=== PATIENT | female | born 1950 | race Caucasian/White ===

== ENCOUNTER 2023-03-13 13:26 | Emergency (ER) | payer MEDICARE, OTHER, SELFPAY ==
--- NOTE | ~2023-03-13 | XR_ITS ---
EXAMINATION: XR HUMERUS, LEFT CLINICAL INFORMATION: Fall COMPARISON: None available. TECHNIQUE: AP and lateral views of the left humerus. FINDINGS: No fracture or dislocation. There is arthritis at the shoulder joint. The elbow joint is unremarkable. Question soft tissue swelling mid arm. XR/XR humerus LT IMPRESSION: No fracture or dislocation. Arthritis at the left shoulder.
--- NOTE | ~2023-03-13 | CT_ITS ---
EXAMINATION: CT CERVICAL SPINE WITHOUT CONTRAST CLINICAL INFORMATION: Fall COMPARISON: None available. TECHNIQUE: CT cervical spine with coronal and sagittal reconstructions. This CT examination was performed using dose optimization techniques as appropriate, variously including the following: *Automated exposure control *Adjustment of mA and/or kV according to patient size (this includes techniques or standardized protocols for targeted exams where dose is matched to indication/reason for exam; i.e. extremities or head) *Use of iterative reconstruction technique DLP: 632 mGy-cm FINDINGS: No abnormal prevertebral soft tissue swelling is seen. Paraspinal muscle fat planes are maintained. No acute cervical spine fractures identified. There is disc space narrowing present C5-T2. Spurring of the joints of Luschka are seen to cause some anterior neural foraminal encroachment on the right at the C5-C6, C6-C7, and T1-T2 disc space levels and on the left at the C5-C6 and C6-C7 levels. Bilateral facet arthropathy is seen at multiple levels within the cervical spine. Visualized thyroid gland unremarkable. Carotid and left vertebral artery calcifications present. No apical lung lesion identified. Pterygoid plates intact. Temporomandibular joints unremarkable. CT/CT cervical spine wo IV con IMPRESSION: No acute cervical spine fracture. Cervical spondylosis as described. Fleischner guidelines were followed.
--- NOTE | ~2023-03-13 | CT_ITS ---
EXAMINATION: CT HEAD WITHOUT CONTRAST CLINICAL INFORMATION: Fall on blood thinners. COMPARISON: None available. TECHNIQUE: Contiguous axial imaging was performed from the skull base to vertex without intravenous administration of contrast. This CT examination was performed using dose optimization techniques as appropriate, variously including the following: *Automated exposure control *Adjustment of mA and/or kV according to patient size (this includes techniques or standardized protocols for targeted exams where dose is matched to indication/reason for exam; i.e. extremities or head) *Use of iterative reconstruction technique DLP: 632 mGy-cm FINDINGS: No intracranial hemorrhage identified. No abnormal extra-axial fluid collection is seen. No mass effect or midline structure shift. Reyes-white matter interface is maintained. Ventricles, sulci, and cisterns appear unremarkable. There is a left frontal scalp hematoma present. No underlying calvarial fracture is seen. Pterygoid plates intact. Temporomandibular joints in place. Visualized paranasal sinuses unremarkable. There are a few opacified mastoid air cells seen bilaterally. CT/CT head/brain wo IV con IMPRESSION: No acute intracranial pathology. Left frontal scalp hematoma.
--- NOTE | ~2023-03-13 | XR_ITS ---
EXAMINATION: XR HIP, LEFT CLINICAL INFORMATION: Fall. Tender to palpation. COMPARISON: None available. TECHNIQUE: Two views of the left hip and one view of the pelvis. FINDINGS: There is mild arthritis at the left hip joint with small osteophytes. No fracture or dislocation. Bones of the pelvis are normal. There are degenerative changes of the lower lumbar spine. There is atherosclerotic disease. XR/XR hip LT w PEL1V IMPRESSION: Mild left hip arthritis. No fracture or dislocation.
--- NOTE | ~2023-03-13 | CT_ITS ---
EXAMINATION: CT FACIAL BONES WITHOUT CONTRAST CLINICAL INFORMATION: Fall COMPARISON: None available. TECHNIQUE: CT facial bones with coronal and sagittal reconstructions This CT examination was performed using dose optimization techniques as appropriate, variously including the following: *Automated exposure control *Adjustment of mA and/or kV according to patient size (this includes techniques or standardized protocols for targeted exams where dose is matched to indication/reason for exam; i.e. 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 No acute facial bone fracture is appreciated. The paranasal sinuses are well aerated. There is opacification of a few mastoid air cells bilaterally. About the posterior aspect of the anterior maxilla adjacent to the incisors there is a well-defined low-density region measuring 6 mm in diameter with benign appearance and does not appear to be related to tooth extraction and may represent a benign cystic lesion not associated with tooth apex. No acute facial bone fracture is appreciated. No intraconal abnormality is seen. Maxillary spine intact. There is deviation of calcified nasal septum to the left anteriorly and to the right posteriorly. Ostiomeatal complexes patent. Pterygoid plates intact. Mild degenerative change of the temporal mandibular joints. CT/CT facial bones wo IV con IMPRESSION: No acute facial bone fracture. Well-defined 6 mm cystic region within the maxilla with benign appearance.
[2023-03-13 13:47] VITALS: BP 100/40; BP 104/37; PULSE 60; PULSE 82; RESP 16; TEMP 36.7; O2SAT 94; O2SAT 98; BMI 38.2
--- NOTE | 2023-03-13 14:04 | ED_ITS ---
HPI - General Adult General Chief complaint: Fall Stated complaint: FALL T-1,+THINNERS,-LOC Source: patient, EMS and RN notes reviewed Mode of arrival: EMS Limitations: no limitations History of Present Illness HPI narrative: Patient is a 72-year-old female with history of CHF, COPD, type 2 DM, on Eliquis for afib, known wound to left heel, known pressure ulcers to coccyx, recently admitted to short-term rehab for pulmonary hypertension presenting to the emergency department after a fall last night. Patient states that she needed to use the restroom and ring her call bowel several times but was not answered so she attempted to get to the bathroom herself in her wheelchair. She states that she wheeled her wheelchair up to the door way but was unable to get her wheelchair over the transitions strip in the doorway and attempted to grab onto the sink. She states that when she grabbed the sink it was wet and this caused her to fall to the floor. She reports that she had her head on the floor but denies any loss of consciousness. The fall was unwitnessed. She now complains of left upper arm and left hip pain. She has visible ecchymosis to the left forehead. Onset (ago): hour(s) Location: head Related Data Allergies Allergy/AdvReac Type Severity Reaction Status Date / Time lisinopril Allergy cough Uncoded 03/13/23 13:57 tramadol AdvReac Mild vomiting Uncoded 03/13/23 13:57 Review of Systems Review of Systems: As per HPI Yes all other systems are reviewed and are negative Constitutional: Constitutional: Reports as per HPI [facility] [place] Social History Social History Smoked in Last 30 Days: No Use of substances other than those prescribed or required for medical reasons: No Advance Directives: No Physical Exam ED Vital Signs: Vital Signs - 24 hr 03/13/23 13:47 03/13/23 14:11 03/13/23 15:17 Temperature 98.1 F 98.1 F 97.7 F Pulse Rate 60 60 57 Respiratory Rate 16 14 15 Blood Pressure 104/37 L 108/40 L 91/41 L Pulse Oximetry 94 94 Oxygen Delivery Method Room Air Room Air 03/13/23 15:24 03/13/23 16:11 Temperature 97.9 F Pulse Rate 60 Respiratory Rate 16 Blood Pressure 111/32 L 95/35 L Pulse Oximetry 95 95 Oxygen Delivery Method Room Air Room Air BMI result Body Mass Index 38.2 Const General: cooperative, healthy appearing and no acute distress Orientation/consciousness: oriented to person, oriented to place, oriented to time and patient oriented x3 Limitations: no limitations HENDE Head: Yes normocephalic, No Creda's sign, Yes contusion, Yes hematoma, No palpable skull fracture, No raccoon eyes, Yes scalp tenderness, No periorbital ecchymosis and Yes other (ecchymosis to left forehead) Head images: 1. ecchymosis Ears: external ears normal and TM's normal bilaterally General nose exam: Normal external nose present Face and sinus: Yes face symmetric Mouth: oropharynx normal and moist mucous membranes Throat: Yes uvula midline Eyes Pupils: Equal, round and reactive pupils present Neck Neck: Yes normal visual inspection and Yes supple Chest Chest palpation & inspection: normal inspection of the chest, normal palpation of entire chest wall, no crepitus and no tenderness Resp Effort & Inspection: normal respiratory effort and able to speak in complete sentences Auscultation: clear to auscultation bilaterally Cardio Rate: regular rate Rhythm: regular rhythm Heart sounds: S1 normal heart sound present and S2 normal heart sound present GI Palpation (GI): Soft to palpation and nontender Auscultation: normoactive bowel sounds General: Yes no CVA tenderness Back/Spine/Pelvis Back: no CVA tenderness Skin General skin exam: elasticity normal and turgor normal Neuro General: oriented to person, oriented to place, oriented to time, patient oriented x3, moves all extremities, no focal motor deficits and CN's II-XI intact bilaterally Cranial nerves: Yes Equal, round and reactive pupils present Cognition (Neuro): normal cognition Extrem General: Yes full ROM, Yes no pedal edema and Yes no calf tenderness Left upper extremity: shoulder/upper arm Details: tenderness Location: other (midshaft humerus), normal ROM and ecchymosis upper arm Details: multiple; no swelling, no crepitus and no deformity Left lower extremity: full ROM, hip/thigh Details: tenderness Location: of the hip Location: laterally and ecchymosis hip lateral and foot Details: vascular status not assessed and other (dressing in place, patient reports wound to heel) Psych Mental Status: mental status grossly normal Affect: normal affect Thought process: Normal thought process present Course Course Course Narrative: 15:01 FINDINGS: There is mild arthritis at the left hip joint with small osteophytes. No fracture or dislocation. Bones of the pelvis are normal. There are degenerative changes of the lower lumbar spine. There is atherosclerotic disease. XR/XR hip LT w PEL1V IMPRESSION: Mild left hip arthritis. No fracture or dislocation. FINDINGS: No fracture or dislocation. There is arthritis at the shoulder joint. The elbow joint is unremarkable. Question soft tissue swelling mid arm. ? XR/XR humerus LT IMPRESSION: No fracture or dislocation. Arthritis at the left shoulder. Awaiting results of CT scans. 15:50 FINDINGS: No intracranial hemorrhage identified. No abnormal extra-axial fluid collection is seen. No mass effect or midline structure shift. Reyes-white matter interface is maintained. Ventricles, sulci, and cisterns appear unremarkable. There is a left frontal scalp hematoma present. No underlying calvarial fracture is seen. Pterygoid plates intact. Temporomandibular joints in place. Visualized paranasal sinuses unremarkable. There are a few opacified mastoid air cells seen bilaterally. ? CT/CT head/brain wo IV con IMPRESSION: No acute intracranial pathology. ? Left frontal scalp hematoma. FINDINGS: No abnormal prevertebral soft tissue swelling is seen. Paraspinal muscle fat planes are maintained. No acute cervical spine fractures identified. There is disc space narrowing present C5-T2. Spurring of the joints of Luschka are seen to cause some anterior neural foraminal encroachment on the right at the C5-C6, C6-C7, and T1-T2 disc space levels and on the left at the C5-C6 and C6-C7 levels. Bilateral facet arthropathy is seen at multiple levels within the cervical spine. Visualized thyroid gland unremarkable. Carotid and left vertebral artery calcifications present. No apical lung lesion identified. Pterygoid plates intact. Temporomandibular joints unremarkable. CT/CT cervical spine wo IV con IMPRESSION: No acute cervical spine fracture. ? Cervical spondylosis as described.? ? Fleischner guidelines were followed. 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 No acute facial bone fracture is appreciated. The paranasal sinuses are well aerated. There is opacification of a few mastoid air cells bilaterally. About the posterior aspect of the anterior maxilla adjacent to the incisors there is a well-defined low-density region measuring 6 mm in diameter with benign appearance and does not appear to be related to tooth extraction and may represent a benign cystic lesion not associated with tooth apex. No acute facial bone fracture is appreciated. No intraconal abnormality is seen. Maxillary spine intact. There is deviation of calcified nasal septum to the left anteriorly and to the right posteriorly. Ostiomeatal complexes patent. Pterygoid plates intact. Mild degenerative change of the temporal mandibular joints. CT/CT facial bones wo IV con IMPRESSION: No acute facial bone fracture. ? Well-defined 6 mm cystic region within the maxilla with benign appearance. Reevaluation(s) Reevaluation #1: No evidence of acute fractures or ICH on x-rays or CT scans. Feel patient is stable for discharge back to short-term rehab. Patient updated on all results, all questions answered and patient is agreeable with plan of care. Time: 16:45 Medical Decision Making Medical Decision Making MDM Narrative: Patient is a 72-year-old female with history of CHF, COPD, type 2 DM, on Eliquis for afib, known wound to left heel, known pressure ulcers to coccyx, recently admitted to short-term rehab for pulmonary hypertension presenting to the emerg ency department after a fall last night with ecchymosis to left forehead, left upper arm pain, and left hip pain. On exam patient is awake, A+Ox3, in no acute distress, normal neuro exam without focal deficit, ecchymosis to left forehead, no palpable fracture, no Cerda sign, no raccoon eyes, multiple areas of ecchymosis to left upper arm in various stages of healing, left hip ecchymosis and TTP, abdomen soft and nontender, chest nontender. Concern for ICH, skull fracture, cervical spinal fracture, facial bone fracture, left humerus fracture, left hip fracture. Plan: CT head/neck/facial bones, x-ray left humerus, hip and pelvis, reassess Please refer to course for remaining clinical decision making. Differential Diagnosis Differential Diagnoses: The differential diagnosis associated with the presentation includes As above Independent Interpretation I performed an independent interpretation of an: Plain X-Ray and CT Scan Interpretation: I independently reviewed the x-rays and CT scans and agree with the radio logist's interpretation. Radiology Impression Discussion of test interpretation with radiology: I have reviewed the radiologist's reading. Radiologist Impression: FINDINGS: There is mild arthritis at the left hip joint with small osteophytes. No fracture or dislocation. Bones of the pelvis are normal. There are degenerative changes of the lower lumbar spine. There is atherosclerotic disease. XR/XR hip LT w PEL1V IMPRESSION: Mild left hip arthritis. No fracture or dislocation. FINDINGS: No fracture or dislocation. There is arthritis at the shoulder joint. The elbow joint is unremarkable. Question soft tissue swelling mid arm. ? XR/XR humerus LT IMPRESSION: No fracture or dislocation. Arthritis at the left shoulder. Awaiting results of CT scans. 15:50 FINDINGS: No intracranial hemorrhage identified. No abnormal extra-axial fluid collection is seen. No mass effect or midline structure shift. Reyes-white matter interface is maintained. Ventricles, sulci, and cisterns appear unremarkable. There is a left frontal scalp hematoma present. No underlying calvarial fracture is seen. Pterygoid plates intact. Temporomandibular joints in place. Visualized paranasal sinuses unremarkable. There are a few opacified mastoid air cells seen bilaterally. ? CT/CT head/brain wo IV con IMPRESSION: No acute intracranial pathology. ? Left frontal scalp hematoma. FINDINGS: No abnormal prevertebral soft tissue swelling is seen. Paraspinal muscle fat planes are maintained. No acute cervical spine fractures identified. There is disc space narrowing present C5-T2. Spurring of the joints of Luschka are seen to cause some anterior neural foraminal encroachment on the right at the C5-C6, C6-C7, and T1-T2 disc space levels and on the left at the C5-C6 and C6-C7 levels. Bilateral facet arthropathy is seen at multiple levels within the cervical spine. Visualized thyroid gland unremarkable. Carotid and left vertebral artery calcifications present. No apical lung lesion identified. Pterygoid plates intact. Temporomandibular joints unremarkable. CT/CT cervical spine wo IV con IMPRESSION: No acute cervical spine fracture. ? Cervical spondylosis as described.? ? Fleischner guidelines were followed. Independent Historian Clinical information obtained from an independent historian. History obtained from or confirmed by: EMS External Record Review External record reviewed: Inpatient record, Office record and Outpatient record Chronic Conditions Patient?s care impacted by: Other (CHF, COPD, on anticoagulation) Discharge Plan Discharge Clinical Impression: Hematoma of frontal scalp, Fall, Contusion of hip, left Patient Disposition: Home, Self-Care Instructions: Fall Prevention for Older Adults (ED), Contusion in Adults (ED), Scalp Contusion in Adults (ED), Fall Prevention (ED), Hip Contusion (ED) Additional Instructions: You have been evaluated in the emergency department today for head injury after a fall. Your CT scan did not show signs of a bleed or fractures in your head. We recommend you take Tylenol 650 mg every 6 hours as needed for pain. Please schedule an appointment with for follow-up with your primary care provider as soon as possible. Return to the emergency department if you experience worsening or uncontrolled pain, vision changes, recurrent vomiting, difficulty with normal activities, abnormal behavior, difficulty walking, numbness, weakness, or any other concerning symptoms.
[2023-03-13 14:11] VITALS: BP 108/40; PULSE 60; RESP 14; TEMP 36.7; O2SAT 94
[2023-03-13 15:17] VITALS: BP 91/41; PULSE 57; RESP 15; TEMP 36.5
[2023-03-13 15:24] VITALS: BP 111/32; O2SAT 95
[2023-03-13 16:11] VITALS: BP 95/35; PULSE 60; RESP 16; TEMP 36.6; O2SAT 95
== END 2023-03-13 18:19 | disposition home or self-care (01) ==
PROVIDERS: Emergency Provider Student in an Organized Health Care Education/Training Program
DX: S00.03XA Contusion of scalp, initial encounter (principal); S70.02XA Contusion of left hip, initial encounter; R51.9 Headache, unspecified; M54.2 Cervicalgia; M25.552 Pain in left hip; W01.0XXA Fall on same level from slipping, tripping and stumbling without subsequent striking against object, initial encounter; Y93.9 Activity, unspecified; Y92.9 Unspecified place or not applicable; Y99.9 Unspecified external cause status; Z79.899 Other long term (current) drug therapy
CPT/HCPCS: 70450; 70486; 72125; 73060; 73502; 99284

== ENCOUNTER 2023-06-27 20:15 | Inpatient (IN) | payer MEDICARE, OTHER, SELFPAY ==
[2023-06-27] VITALS (7 sets, daily range): BP systolic 90–141; BP diastolic 37–60; PULSE 60–65; RESP 9–17; TEMP 36.3–36.7; O2SAT 95–99; BMI 33.9
--- NOTE | ~2023-06-27 | CT_ITS ---
EXAMINATION: CT ABDOMEN AND PELVIS WITHOUT CONTRAST CLINICAL INFORMATION: Elevated LFTs COMPARISON: None available. TECHNIQUE: Multidetector volumetric imaging was performed from the superior aspect of the liver through the pubic symphysis. Sagittal and coronal reformatted images were obtained on the technologist's workstation. This CT examination was performed using dose optimization techniques as appropriate, variously including the following: *Automated exposure control *Adjustment of mA and/or kV according to patient size (this includes techniques or standardized protocols for targeted exams where dose is matched to indication/reason for exam; i.e. extremities or head) *Use of iterative reconstruction technique DLP: 1055 mGy-cm FINDINGS: LUNG BASES: Emphysematous changes. Bibasilar atelectasis versus scarring. Heart is mildly enlarged. Coronary artery calcifications are noted. No pneumothorax. No large pleural effusion. LIVER, GALLBLADDER, AND BILIARY TREE: Liver demonstrates a cirrhotic morphology. No focal hepatic lesion or biliary ductal dilatation is present. The gallbladder is surgically absent. PANCREAS: Fatty infiltration and atrophy of the pancreas. SPLEEN: Unremarkable. ADRENAL GLANDS: Unremarkable. KIDNEYS AND URETERS: Subcentimeter hypodense focus along the anterior aspect of the left renal interpolar region to small to characterize though statistically representing a simple cyst not requiring follow-up. The kidneys are normal in size, shape, and attenuation. No hydronephrosis, hydroureter, or calculi seen. No perinephric stranding. BLADDER: Unremarkable. GASTROINTESTINAL TRACT: Colonic diverticulosis without acute diverticulitis. The small and large bowel are unremarkable. The appendix is unremarkable. ABDOMINAL WALL: No significant hernia is appreciated. LYMPH NODES: No enlarged lymph nodes per size criteria. VASCULAR: Splenic varices. Abdominal aorta is nonaneurysmal. Atherosclerotic calcifications of the abdominal aorta and its branches. PELVIC VISCERA: Anteverted uterus. Calcifications of the uterine body possibly representing calcified uterine fibroids. OSSEOUS STRUCTURES: Osteopenia. Multilevel degenerative changes of the thoracolumbar and lumbosacral spine. CT/CT abdomen pelvis wo IV con IMPRESSION: 1. No acute process of the abdomen or pelvis identified. 2. Liver demonstrates a cirrhotic morphology. Splenic varices suggesting portal hypertension. 3. Status post cholecystectomy. 4. Subcentimeter hypodense focus along the anterior aspect of the left renal interpolar region to small to characterize though statistically representing a simple cyst, not requiring follow-up. 5. Colonic diverticulosis without acute diverticulitis. 6. Osteopenia.
--- NOTE | 2023-06-27 20:24 | ECG_ITS ---
Test Reason : AMS Blood Pressure : / mmHG Vent. Rate : 061 BPM Atrial Rate : 061 BPM P-R Int : 210 ms QRS Dur : 108 ms QT Int : 506 ms P-R-T Axes : 080 -06 115 degrees QTc Int : 509 ms Sinus rhythm with 1st degree A-V block ST & T wave abnormality, consider anterior ischemia Prolonged QT Abnormal ECG No previous ECGs available Referred By: Lorene Velazquez Electronically Signed By:THEO GUSMAN
[2023-06-27 20:46] LABS: MANUAL DIFF FLAG NO
[2023-06-27 20:47] LABS: Basophils Percent Auto 0.3 % (0-2); Eosinophils Absolute Auto 0.1 X10*3/uL (0.0-0.4); Eosinophils Percent Auto 0.5 % (0-4); Hemoglobin 10.1 g/dl (12.0-16.0); Imm Gran Abs Auto 0.05 X10*3/uL (0.00-0.03); Imm Gran Pct Auto 0.5 % (0.0-0.4); Lymphocytes Percent Auto 10.7 % (20-40); Mean Corpuscular HGB Conc 32.6 g/dl (31.0-35.0); Mean Corpuscular Hemoglobin 28.8 pg (27.0-33.0); Mean Corpuscular Volume 88.3 fL (80.0-98.0); Mean Platelet Volume 11.5 fL (9.4-12.3); Monocytes Absolute Auto 0.9 X10*3/uL (0.1-1.2); Monocytes Percent Auto 9.3 % (2-11); Neutrophils Absolute Auto 7.5 x10*3/uL (2.0-8.3); Neutrophils Percent Auto 78.7 % (45-73); Platelet Count 219 X10*3/uL (160-400); Red Blood Count 3.51 X10*6/uL (4.20-5.50); Red Cell Distribution Width 18.7 % (11.0-16.0); White Blood Count 9.5 X10*3/uL (4.8-10.8)
[2023-06-27 20:52] LABS: Prothrombin Time 24.2 SEC (11.1-13.3)
[2023-06-27] MEDS: ondansetron HCL 4 MG/2 ML VIAL IVPUSH (21:06)
[2023-06-27 21:11] LABS: Appearance Urine Hazy; Color Urine Yellow; Glucose Urine UA Negative (Negative); Leukocyte Esterase Urine Large (3+) (Negative); Nitrite Urine Negative (Negative); PH 7.5 (5.0-9.0); UMIC TRIGGER UACC YES; Urine Blood Small (1+) (Negative); Urine Ketones Negative (Negative); Urine Protein Negative (Neg-Trace)
[2023-06-27 21:18] LABS: Calcium Oxalate Crystals Urine Present; Hyaline Casts Urine >20 /LPF (0-2); UACC Culture Trigger YES; WBC Urine >50 /HPF (0-5)
[2023-06-27 21:18] LABS: Lactic Acid 1.5 mmol/L (0.5-2.0)
[2023-06-27 21:19] LABS: Bacteria Urine 2+ (None Seen)
[2023-06-27 21:23] LABS: Alanine Aminotransferase 26 U/L (0-31); Albumin Level 2.6 g/dL (3.5-5.0); Alkaline Phosphatase 219 U/L (39-117); Anion Gap 19 (12-20); Aspartate Amino Transferase 113 U/L (5-31); Bilirubin Total 3.4 mg/dL (0.0-1.0); Blood Urea Nitrogen 46 mg/dL (9-16); Carbon Dioxide 23 mmol/L (22-29); Chloride 92 mmol/L (96-108); Creatinine Clr Calc Pharmacy 21.3; Estimated Glomerular Filt Rate 19; Glucose Random 199 mg/dL (60-115); Potassium 4.8 mmol/L (3.3-5.1); Sodium 129 mmol/L (135-145); Total Protein 6.5 g/dL (6.5-8.0)
--- NOTE | 2023-06-27 21:28 | PC.NURSE ---
Pt comes from [facility], has been consistetly worse over the last few days per family. pt is getting lactulose for elevated ammonia levels. Pt is DNR/DNI and has a signed molst form. Blood pressure has been consistently low MD aware, no new orders. Pt placed in trendelenburg at this time This RN placed 20g IV in RAC
--- NOTE | 2023-06-27 21:31 | PC.NURSE ---
pt has skin small skin tear on R heel, this RN placed non-stick dressing over wound. Pt also has various small (less then dime sized) wound along bilateral arms and chest. No active bleeding present. Pillow placed under legs to keep heels off bed
[2023-06-27 21:33] LABS: Troponin-I High Sensitivity 29.6 ng/L (<3.5-17.0)
--- NOTE | 2023-06-27 21:46 | PHA.MEDREC ---
Pharmacy Consult ? Medication Reconciliation Pharmacy has completed the medication reconciliation. Patient came from [facility] with medication list. Renetta Olivo, ShanonD
--- NOTE | 2023-06-27 21:46 | PC.NURSE ---
Second 20g IV placed in RAC by CARY Sweeney
--- NOTE | 2023-06-27 21:54 | ED.GENADULT ---
HPI - General Adult General Chief complaint: Altered Mental Status Stated complaint: AMS VOMITING NAUSEA Time Seen by Provider: 06/27/23 20:59 Source: patient and EMS Mode of arrival: EMS Limitations: altered mental status History of Present Illness HPI narrative: Patient comes to the emergency room via ambulance from [facility]. Patient has altered mental status, patient's family is at bedside. They report that the patient has been having decreased p.o. intake for 3-4 days, vomiting after eating, no diarrhea. Also, the family reports that patient was recently seen at [facility], diagnosed with some liver issue which is causing her ammonia to increase. The family does not know exactly what the patient is being worked up for, they report that the patient has an MRI pending 2 weeks from now. Patient states that overall she does not feel well, no specific complaints. The family reports that if notice at the facility that patient's ammonia has been elevated for about a week, currently taking lactulose and having soft bowel movements without diarrhea. Also, patient did complain a few days about possible dysuria, a urinalysis was obtained but they do not have the results yet. Patient denies any fever or chills, no flank pain Related Data Home Medications Medication Instructions Recorded Confirmed albuterol sulfate 90 mcg/actuation 2 puff inhalation Q6H PRN wheezing 06/27/23 06/27/23 aerosol inhaler amiodarone 400 mg tablet 400 mg PO DAILY 06/27/23 06/27/23 apixaban 5 mg tablet 5 mg PO BID 06/27/23 06/27/23 cyanocobalamin (vitamin B-12) 1,000 mcg IM Q30D 06/27/23 06/27/23 1,000 mcg/mL injection kit fluticasone fur. 200 mcg-umeclid 1 inh inhalation DAILY 06/27/23 06/27/23 62.5 mcg-vilant 25 mcg inhalat.powder (Trelegy Ellipta) gabapentin 100 mg capsule 100 mg PO TID 06/27/23 06/27/23 insulin glargine 100 unit/mL 32 unit subcut BEDTIME 06/27/23 06/27/23 subcutaneous solution lactulose 10 gram/15 mL oral 45 ml PO BID 06/27/23 06/27/23 solution methyl salicylate 15 %-menthol 10 1 appl topical BID 06/27/23 06/27/23 % topical cream (Muscle Rub) midodrine 10 mg tablet 5 mg PO BID 06/27/23 06/27/23 omeprazole 20 mg capsule,delayed 20 mg PO BID 06/27/23 06/27/23 release ondansetron HCl 4 mg tablet 8 mg PO TID 06/27/23 06/27/23 oxycodone-acetaminophen 5 mg-325 1 tab PO Q8H PRN Pain 06/27/23 06/27/23 mg tablet (Percocet) polyethylene glycol 3350 17 gram 17 g PO DAILY 06/27/23 06/27/23 oral powder packet (Miralax) potassium chloride 20 mEq 20 meq PO DAILY 06/27/23 06/27/23 tablet,extended release sertraline 50 mg tablet 100 mg PO DAILY 06/27/23 06/27/23 spironolactone 100 mg tablet 100 mg PO BEDTIME 06/27/23 06/27/23 torsemide 100 mg tablet 100 mg PO DAILY 06/27/23 06/27/23 Allergies Allergy/AdvReac Type Severity Reaction Status Date / Time lisinopril Allergy cough Uncoded 03/13/23 13:57 tramadol AdvReac Mild vomiting Uncoded 03/13/23 13:57 Review of Systems Review of Systems: Constitutional : Denies fever ENT/Mouth : No Hearing loss, No Ear Pain, No Nasal Congestion, No Sinus Pain, No Hoarseness, No sore throat, No Rhinorrhea, No Swallowing Difficulty Eyes: No Eye Pain, No Swelling, No Redness, No Foreign Body, No Discharge, No Vision Changes Cardiovascular : No Chest Pain, No SOB, No Dyspnea on Exertion, No Orthopnea, No Edema, No Palpitations Respiratory : No Cough, No Sputum, No Wheezing, No Smoke Exposure, No Dyspnea Gastrointestinal : Complaining of vomiting and soft loose stools secondary to using lactulose Genitourinary : Complaining of mild Dysuria, No Urinary Frequency, No Hematuria, No Urinary Incontinence, No Urgency, No Flank Pain, No Urinary Flow Changes, No Hesitancy Musculoskeletal : No joint pain, No Myalgias, No Joint Swelling Skin : No Skin Lesions, No rash Neuro : No Weakness, No Numbness, No Paresthesias, No Loss of Consciousness, No Dizziness, No Headache Psych : No Anxiety/Panic, No Depression, No SI/HI/AH/VH, No Social Issues, Heme/Lymph: No Bruising, No Bleeding,No Lymphadenopathy Endocrine : No Polyuria, No Polydipsia, No Temperature Intolerance [facility] Past Medical History Medical History Atrial fibrillation CHF (congestive heart failure) COPD (chronic obstructive pulmonary disease) Hypertension Pulmonary hypertension Type 2 diabetes mellitus Social History Social History Alcohol intake: never Patient Tobacco Use Status: Never used Tobacco Smoked in Last 30 Days: No Use of substances other than those prescribed or required for medical reasons: No Advance Directives: Yes Advance Directives Information Provided: No Advance Directives on File: No Nutrition Risks: Poor intake 0-25% >4 days Physical Exam ED Vital Signs: Vital Signs - 24 hr 06/27/23 20:19 06/27/23 20:31 06/27/23 21:05 Temperature 97.9 F 97.4 F Pulse Rate 61 62 60 Respiratory Rate 9 L 17 10 L Blood Pressure 141/37 H 141/37 H 124/45 L Pulse Oximetry 99 99 98 Oxygen Delivery Method Room Air Room Air Room Air 06/27/23 21:08 06/27/23 21:38 06/27/23 22:04 Temperature Pulse Rate 60 61 60 Respiratory Rate 10 L 10 L 11 L Blood Pressure 141/52 H 141/42 H 135/58 L Pulse Oximetry 99 99 98 Oxygen Delivery Method Room Air Room Air Room Air 06/27/23 23:17 Temperature 98.0 F Pulse Rate 65 Respiratory Rate 12 Blood Pressure 133/48 L Pulse Oximetry 98 Oxygen Delivery Method Room Air BMI result Body Mass Index 33.9 Const Other: Appearance: Alert. Oriented X2. No acute distress. Does look uncomfortable Eyes: Pupils equal, round and reactive to light. ENT: Pharynx normal. Neck: Normal inspection. Neck supple. No lymph nodes noted. No crepitus CVS: Normal heart rate and rhythm. Pulses normal. Normal S1 and S2 Respiratory: No respiratory distress. Breath sounds normal. No Wheezing. No rales Abdomen: Soft and nontender. No rigidity. No distention. Skin: Skin warm and dry. Normal skin color. Normal skin turgor. Extremities: +1 trace pitting edema bilaterally No Lacerations. No Rash Neuro: Moving all extremities. No slurred speech. CN 2 through 12 grossly intact Psych: calm, cooperative Course Course Course Narrative: -patient's labs pending -with family sent patient's permission, we have requested records from [facility], pending Medications Administered Generic Name Dose Route Start Last Admin Trade Name Freq PRN Reason Stop Dose Admin Sodium Chloride 500 mls @ 500 mls/hr 06/27/23 22:45 06/27/23 22:50 Ns IV 06/27/23 23:44 500 mls/hr .Q1H ONE Administration Insulin Glargine 15 unit 06/27/23 22:50 06/27/23 23:09 Insulin Glargine,Hum.Rec.Anlog 100 Unit/Ml 10 Ml Vial SUBCUT 15 unit BEDTIME RHODA Administration Insulin Human Lispro 0 unit 06/27/23 23:00 06/27/23 23:08 Insulin Lispro 100 Unit/Ml 3 Ml Vial SUBCUT 2 unit Q6H RHODA Administration Protocol Sodium Chloride 3 ml 06/28/23 00:00 06/27/23 23:37 0.9 % Sodium Chloride Flush 3 Ml Syringe IVFLUSH Not Given QSHIFT RHOAD Discontinued Medications Generic Name Dose Route Start Last Admin Trade Name Freq PRN Reason Stop Dose Admin Ceftriaxone Sodium 1 gm/ 50 mls @ 100 mls/hr 06/27/23 22:16 06/27/23 23:19 Sodium Chloride IV 06/27/23 22:45 Infused ONCE ONE Infusion Lactulose 200 gm 06/27/23 22:36 06/27/23 23:08 Lactulose 320 Gm/480 Ml Solution HI 06/27/23 22:37 200 gm ONCE ONE Administration Morphine Sulfate 2 mg 06/27/23 22:48 06/27/23 23:09 Morphine Sulfate 2 Mg/Ml Cartridge IVPUSH 06/27/23 22:49 2 mg ONCE ONE Administration Protocol Ondansetron HCl 4 mg 06/27/23 20:24 06/27/23 21:06 Ondansetron Hcl 4 Mg/2 Ml Vial IVPUSH 06/27/23 20:25 4 mg ONCE ONE Administration Medical Decision Making Medical Decision Making MDM Narrative: -my interpretation of labs: Hemoglobin 10.1, hematocrit 31, we do not have any previous labs for comparison. INR 2.0, patient is not on Coumadin, only Eliquis. Patient's sodium 129, creatinine 2.47, we not have any previous labs for comparison. Patient has a UTI, covered with antibiotics, sepsis not suspected. -I discussed the patient with Dr. Jonhson, patient being admitted -we will go ahead and order a CT scan of the abdomen given her history, unclear why patient has elevated ammonia. Given p.r. ammonia here in the ED. Differential Diagnosis Differential Diagnoses: The differential diagnosis associated with the presentation includes (Encephalopathy due to high ammonia, UTI, deconditioning, dementia, hyponatremia) Admission/Observation Consideration of admission/observation: Escalation of care including admission/observation considered Consult Healthcare Provider Management of the patient was discussed with: Hospitalist Lab Data MDM Lab Attestation statement: I reviewed the patient's lab results. 06/27/23 20:41 06/27/23 20:40 Labs: Lab Results 06/27/23 06/27/23 06/27/23 Range/Units 20:40 20:40 20:41 WBC 9.5 (4.8-10.8) X10*3/uL RBC 3.51 L (4.20-5.50) X10*6/uL Hgb 10.1 L (12.0-16.0) g/dl Hct 31.0 L (37.0-47.0) % MCV 88.3 (80.0-98.0) fL MCH 28.8 (27.0-33.0) pg MCHC 32.6 (31.0-35.0) g/dl RDW 18.7 H (11.0-16.0) % Plt Count 219 (160-400) X10*3/uL MPV 11.5 (9.4-12.3) fL Immature Gran % (Auto) 0.5 H (0.0-0.4) % Neut % (Auto) 78.7 H (45-73) % Lymph % (Auto) 10.7 L (20-40) % Ballard % (Auto) 9.3 (2-11) % Eos % (Auto) 0.5 (0-4) % Baso % (Auto) 0.3 (0-2) % Lymph # (Auto) 1.0 L (1.2-4.9) X10*3/uL Ballard # (Auto) 0.9 (0.1-1.2) X10*3/uL Eos # (Auto) 0.1 (0.0-0.4) X10*3/uL Baso # (Auto) 0.0 (0.0-0.2) X10*3/uL Abs Immat Gran (auto) 0.05 H (0.00-0.03) X10*3/uL Absolute Neuts (auto) 7.5 (2.0-8.3) x10*3/uL Absolute Nucleated RBC 0.000 (0.0-0.012) X10*3/uL Nucleated RBC % (auto) 0.0 (0.0-0.2) /100WBC PT (11.1-13.3) SEC INR (0.9-1.1) Sodium 129 L (135-145) mmol/L Potassium 4.8 (3.3-5.1) mmol/L Chloride 92 L (96-108) mmol/L Carbon Dioxide 23 (22-29) mmol/L Anion Gap 19 (12-20) BUN 46 H (9-16) mg/dL Creatinine 2.47 H (0.5-1.4) mg/dL Estim Creat Clear Calc 21.3 Estimated GFR 19 POC Glucose (60-115) mg/dL Random Glucose 199 H (60-115) mg/dL Lactic Acid 1.5 (0.5-2.0) mmol/L Calcium 9.0 (8.4-10.2) mg/dL Total Bilirubin 3.4 H (0.0-1.0) mg/dL AST 113 H (5-31) U/L ALT 26 (0-31) U/L Alkaline Phosphatase 219 H (39-117) U/L Ammonia (13-55) umol/L Troponin I High Sens (<3.5-17.0) ng/L Total Protein 6.5 (6.5-8.0) g/dL Albumin 2.6 L (3.5-5.0) g/dL Urine Color Urine Appearance Urine pH (5.0-9.0) Ur Specific [place] (1.005-1.025) Urine Protein (Neg-Trace) mg/dL Urine Glucose (UA) (Negative) mg/dL Urine Ketones (Negative) mg/dL Urine Blood (Negative) Urine Nitrite (Negative) Ur Leukocyte Esterase (Negative) Urine RBC (0-2) /HPF Urine WBC (0-5) /HPF Ur Squamous Epith Cells (0-2) /HPF Calcium Oxalate Crystal Urine Bacteria (None Seen) Hyaline Casts (0-2) /LPF 06/27/23 06/27/23 06/27/23 Range/Units 20:41 20:41 20:41 WBC (4.8-10.8) X10*3/uL RBC (4.20-5.50) X10*6/uL Hgb (12.0-16.0) g/dl Hct (37.0-47.0) % MCV (80.0-98.0) fL MCH (27.0-33.0) pg MCHC (31.0-35.0) g/dl RDW (11.0-16.0) % Plt Count (160-400) X10*3/uL MPV (9.4-12.3) fL Immature Gran % (Auto) (0.0-0.4) % Neut % (Auto) (45-73) % Lymph % (Auto) (20-40) % Ballard % (Auto) (2-11) % Eos % (Auto) (0-4) % Baso % (Auto) (0-2) % Lymph # (Auto) (1.2-4.9) X10*3/uL Ballard # (Auto) (0.1-1.2) X10*3/uL Eos # (Auto) (0.0-0.4) X10*3/uL Baso # (Auto) (0.0-0.2) X10*3/uL Abs Immat Gran (auto) (0.00-0.03) X10*3/uL Absolute Neuts (auto) (2.0-8.3) x10*3/uL Absolute Nucleated RBC (0.0-0.012) X10*3/uL Nucleated RBC % (auto) (0.0-0.2) /100WBC PT 24.2 H (11.1-13.3) SEC INR 2.0 H (0.9-1.1) Sodium (135-145) mmol/L Potassium (3.3-5.1) mmol/L Chloride (96-108) mmol/L Carbon Dioxide (22-29) mmol/L Anion Gap (12-20) BUN (9-16) mg/dL Creatinine (0.5-1.4) mg/dL Estim Creat Clear Calc Estimated GFR POC Glucose (60-115) mg/dL Random Glucose (60-115) mg/dL Lactic Acid (0.5-2.0) mmol/L Calcium (8.4-10.2) mg/dL Total Bilirubin (0.0-1.0) mg/dL AST (5-31) U/L ALT (0-31) U/L Alkaline Phosphatase (39-117) U/L Ammonia (13-55) umol/L Troponin I High Sens 29.6 H (<3.5-17.0) ng/L Total Protein (6.5-8.0) g/dL Albumin (3.5-5.0) g/dL Urine Color Yellow Urine Appearance Hazy Urine pH 7.5 (5.0-9.0) Ur Specific [place] 1.010 (1.005-1.025) Urine Protein Negative (Neg-Trace) mg/dL Urine Glucose (UA) Negative (Negative) mg/dL Urine Ketones Negative (Negative) mg/dL Urine Blood Small (1+) H (Negative) Urine Nitrite Negative (Negative) Ur Leukocyte Esterase Large (3+) H (Negative) Urine RBC 3-5 H (0-2) /HPF Urine WBC >50 H (0-5) /HPF Ur Squamous Epith Cells 6-10 (0-2) /HPF Calcium Oxalate Crystal Present Urine Bacteria 2+ (None Seen) Hyaline Casts >20 (0-2) /LPF 06/27/23 06/27/23 Range/Units 21:39 22:55 WBC (4.8-10.8) X10*3/uL RBC (4.20-5.50) X10*6/uL Hgb (12.0-16.0) g/dl Hct (37.0-47.0) % MCV (80.0-98.0) fL MCH (27.0-33.0) pg MCHC (31.0-35.0) g/dl RDW (11.0-16.0) % Plt Count (160-400) X10*3/uL MPV (9.4-12.3) fL Immature Gran % (Auto) (0.0-0.4) % Neut % (Auto) (45-73) % Lymph % (Auto) (20-40) % Ballard % (Auto) (2-11) % Eos % (Auto) (0-4) % Baso % (Auto) (0-2) % Lymph # (Auto) (1.2-4.9) X10*3/uL Ballard # (Auto) (0.1-1.2) X10*3/uL Eos # (Auto) (0.0-0.4) X10*3/uL Baso # (Auto) (0.0-0.2) X10*3/uL Abs Immat Gran (auto) (0.00-0.03) X10*3/uL Absolute Neuts (auto) (2.0-8.3) x10*3/uL Absolute Nucleated RBC (0.0-0.012) X10*3/uL Nucleated RBC % (auto) (0.0-0.2) /100WBC PT (11.1-13.3) SEC INR (0.9-1.1) Sodium (135-145) mmol/L Potassium (3.3-5.1) mmol/L Chloride (96-108) mmol/L Carbon Dioxide (22-29) mmol/L Anion Gap (12-20) BUN (9-16) mg/dL Creatinine (0.5-1.4) mg/dL Estim Creat Clear Calc Estimated GFR POC Glucose 200 H (60-115) mg/dL Random Glucose (60-115) mg/dL Lactic Acid (0.5-2.0) mmol/L Calcium (8.4-10.2) mg/dL Total Bilirubin (0.0-1.0) mg/dL AST (5-31) U/L ALT (0-31) U/L Alkaline Phosphatase (39-117) U/L Ammonia 80 H (13-55) umol/L Troponin I High Sens (<3.5-17.0) ng/L Total Protein (6.5-8.0) g/dL Albumin (3.5-5.0) g/dL Urine Color Urine Appearance Urine pH (5.0-9.0) Ur Specific [place] (1.005-1.025) Urine Protein (Neg-Trace) mg/dL Urine Glucose (UA) (Negative) mg/dL Urine Ketones (Negative) mg/dL Urine Blood (Negative) Urine Nitrite (Negative) Ur Leukocyte Esterase (Negative) Urine RBC (0-2) /HPF Urine WBC (0-5) /HPF Ur Squamous Epith Cells (0-2) /HPF Calcium Oxalate Crystal Urine Bacteria (None Seen) Hyaline Casts (0-2) /LPF Independent Interpretation I performed an independent interpretation of an: CT Scan Interpretation: My interpretation of CT scan of the abdomen: I do not see obvious liver masses or abnormalities. Radiology Impression Radiologist Impression: FINDINGS: LUNG BASES: Emphysematous changes. Bibasilar atelectasis versus scarring. Heart is mildly enlarged. Coronary artery calcifications are noted. No pneumothorax. No large pleural effusion.? LIVER, GALLBLADDER, AND BILIARY TREE: Liver demonstrates a cirrhotic morphology. No focal hepatic lesion or biliary ductal dilatation is present. The gallbladder is surgically absent. PANCREAS: Fatty infiltration and atrophy of the pancreas.? SPLEEN: Unremarkable.? ADRENAL GLANDS: Unremarkable.? KIDNEYS AND URETERS: Subcentimeter hypodense focus along the anterior aspect of the left renal interpolar region to small to characterize though statistically representing a simple cyst not requiring follow-up. The kidneys are normal in size, shape, and attenuation. No hydronephrosis, hydroureter, or calculi seen. No perinephric stranding. ? BLADDER: Unremarkable.? GASTROINTESTINAL TRACT: Colonic diverticulosis without acute diverticulitis. The small and large bowel are unremarkable. The appendix is unremarkable.? ABDOMINAL WALL: No significant hernia is appreciated.? LYMPH NODES: No enlarged lymph nodes per size criteria. VASCULAR: Splenic varices. Abdominal aorta is nonaneurysmal. Atherosclerotic calcifications of the abdominal aorta and its branches. PELVIC VISCERA: Anteverted uterus. Calcifications of the uterine body possibly representing calcified uterine fibroids.? OSSEOUS STRUCTURES: Osteopenia. Multilevel degenerative changes of the thoracolumbar and lumbosacral spine.? CT/CT abdomen pelvis wo IV con IMPRESSION: 1.? No acute process of the abdomen or pelvis identified. 2.? Liver demonstrates a cirrhotic morphology. Splenic varices suggesting portal hypertension. 3.? Status post cholecystectomy. 4.? Subcentimeter hypodense focus along the anterior aspect of the left renal interpolar region to small to characterize though statistically representing a simple cyst, not requiring follow-up. 5.? Colonic diverticulosis without acute diverticulitis. 6.? Osteopenia. Critical Care Time Critical Care Time Critical Care Time: Yes Total Critical Care Time: 60 Attestation: I have personally provided critical care time. Time includes review of lab data, radiology results, discussion with consultants, and monitoring for potential decompensation. Intervention performed as documented. Discharge Plan Discharge Clinical Impression: Acute metabolic encephalopathy, Acute UTI Patient Disposition: Admitted As Inpatient Prescriptions: No Action insulin glargine 100 unit/mL Solution 32 unit SUBCUT BEDTIME polyethylene glycol 3350 [Miralax] 17 gram Powder In Packet 17 g PO DAILY ondansetron HCl 4 mg Tablet 8 mg PO TID spironolactone 100 mg Tablet 100 mg PO BEDTIME oxycodone-acetaminophen [Percocet] 5-325 mg Tablet 1 tab PO Q8H PRN (Reason: Pain) torsemide 100 mg Tablet 100 mg PO DAILY amiodarone 400 mg Tablet 400 mg PO DAILY omeprazole 20 mg capsule,delayed release(DR/EC) 20 mg PO BID albuterol sulfate 90 mcg/actuation HFA aerosol inhaler 2 puff inhalation Q6H PRN (Reason: wheezing) sertraline 50 mg Tablet 100 mg PO DAILY midodrine 10 mg Tablet 5 mg PO BID Rx Instructions: do not give last dose of day after 6PM or within 4 hrs of bedtime lactulose 10 gram/15 mL Solution 45 ml PO BID Muscle Rub 15-10 % Cream 1 appl TOPICAL BID apixaban 5 mg Tablet 5 mg PO BID cyanocobalamin (vitamin B-12) 1,000 mcg/mL Kit 1,000 mcg IM Q30D potassium chloride 20 mEq Tablet Extended Release 20 meq PO DAILY Trelegy Ellipta 200-62.5-25 mcg Blister With Device 1 inh INHALATION DAILY gabapentin 100 mg Capsule 100 mg PO TID
[2023-06-27] MEDS: cefTRIAXone sodium 1 GM in 0.9 % Sodium Chloride 50 ML IV (22:22)
[2023-06-27 22:28] LABS: Ammonia 80 umol/L (13-55)
--- NOTE | 2023-06-27 22:42 | PC.NURSE ---
pharmacy called for lactulose
--- NOTE | 2023-06-27 22:47 | P.HPHOSP_ITS ---
History of Present Illness Date of Service: 06/27/23 Chief Complaint: Altered mentation This is a 73-year-old female with pertinent history of liver cirrhosis, congestive heart failure unspecified ejection fraction, insulin-dependent diabetes mellitus, mood disorder, AFib on Eliquis who was brought to the emergency department for evaluation of altered mentation. History obtained from family at bedside and chart review. About 3-4 days prior to presentation, patient with decreased mentation and decreased p.o. intake. Family states that patient has been drowsy over the last few days. Not eating or drinking well. The family states that patient does have some liver problem and occasionally gets confused when her ammonia level gets high. Possible dysuria according to family. Unable to obtain review of systems accurately from the patient. Patient is only oriented to self at the time of my evaluation. She does not know why she is in the hospital. Review of Systems Review of Systems: Yes Unobtainable due to mental status PMFSH Medical History Atrial fibrillation CHF (congestive heart failure) COPD (chronic obstructive pulmonary disease) Hypertension Pulmonary hypertension Type 2 diabetes mellitus Pertinent family history: Unable to obtain Social History Alcohol intake: never Smoked in Last 30 Days: No Use of substances other than those prescribed or required for medical reasons: No Advance Directives: Yes Advance Directives Information Provided: No Advance Directives on File: No Meds Allergies Allergy/AdvReac Type Severity Reaction Status Date / Time lisinopril Allergy cough Uncoded 03/13/23 13:57 tramadol AdvReac Mild vomiting Uncoded 03/13/23 13:57 Active Medications: Current Medications Acetaminophen (Acetaminophen 325 Mg Tablet) 650 mg PO Q6H PRN PRN Reason: Pain, Mild (Pain Scale 1-3) Acetaminophen (Acetaminophen Supp 650 Mg Supp.Rect) 650 mg [place] Q6H PRN PRN Reason: Pain, Mild (Pain Scale 1-3) Sodium Chloride (Ns) 500 mls @ 500 mls/hr IV .Q1H ONE Stop: 06/27/23 23:44 Melatonin (Melatonin 3 Mg Tablet) 6 mg PO BEDTIME PRN PRN Reason: Insomnia Ondansetron HCl (Ondansetron Hcl 4 Mg/2 Ml Vial) 4 mg IVPUSH Q8H PRN PRN Reason: Nausea and Vomiting Sodium Chloride (0.9 % Sodium Chloride Flush 3 Ml Syringe) 3 ml IVFLUSH [facility] Home Medications Medication Instructions Recorded Confirmed Last Taken Type albuterol sulfate 90 mcg/actuation 2 puff inhalation Q6H PRN wheezing 06/27/23 06/27/23 Unknown History aerosol inhaler amiodarone 400 mg tablet 400 mg PO DAILY 06/27/23 06/27/23 Unknown History apixaban 5 mg tablet 5 mg PO BID 06/27/23 06/27/23 Unknown History cyanocobalamin (vitamin B-12) 1,000 mcg IM Q30D 06/27/23 06/27/23 Unknown History 1,000 mcg/mL injection kit fluticasone fur. 200 mcg-umeclid 1 inh inhalation DAILY 06/27/23 06/27/23 Unkno wn History 62.5 mcg-vilant 25 mcg inhalat.powder (Trelegy Ellipta) gabapentin 100 mg capsule 100 mg PO TID 06/27/23 06/27/23 Unknown History insulin glargine 100 unit/mL 32 unit subcut BEDTIME 06/27/23 06/27/23 Unknown History subcutaneous solution lactulose 10 gram/15 mL oral 45 ml PO BID 06/27/23 06/27/23 Unknown History solution methyl salicylate 15 %-menthol 10 1 appl topical BID 06/27/23 06/27/23 Unknown History % topical cream (Muscle Rub) midodrine 10 mg tablet 5 mg PO BID 06/27/23 06/27/23 Unknown History omeprazole 20 mg capsule,delayed 20 mg PO BID 06/27/23 06/27/23 Unknown History release ondansetron HCl 4 mg tablet 8 mg PO TID 06/27/23 06/27/23 Unknown History oxycodone-acetaminophen 5 mg-325 1 tab PO Q8H PRN Pain 06/27/23 06/27/23 Unknown History mg tablet (Percocet) polyethylene glycol 3350 17 gram 17 g PO DAILY 06/27/23 06/27/23 Unknown History oral powder packet (Miralax) potassium chloride 20 mEq 20 meq PO DAILY 06/27/23 06/27/23 Unknown History tablet,extended release sertraline 50 mg tablet 100 mg PO DAILY 06/27/23 06/27/23 Unknown History spironolactone 100 mg tablet 100 mg PO BEDTIME 06/27/23 06/27/23 Unknown History torsemide 100 mg tablet 100 mg PO DAILY 06/27/23 06/27/23 Unknown History Physical Exam Vital Signs and Narrative: Vital Signs: Last Vital Signs Temp 97.4 F 06/27/23 20:31 Pulse 60 06/27/23 22:04 Resp 11 L 06/27/23 22:04 BP 135/58 L 06/27/23 22:04 Pulse Ox 98 06/27/23 22:04 O2 Del Method Room Air 06/27/23 22:04 BMI result Body Mass Index 33.9 Elderly lying in bed in no distress Neck supple, no JVD Regular rate and rhythm, S1-S2 heard Regular breath sounds bilaterally, no wheezing or crackles appreciated Abdomen soft nontender, no guarding, no rigidity Patient is awake, alert and oriented to self, disoriented to place, time and person ; no focal motor deficit Psych: Drowsy Results Labs 06/27/23 20:41 06/27/23 20:40 Labs: Laboratory Results - last 24 hr 06/27/23 06/27/23 06/27/23 20:40 20:40 20:41 MCV 88.3 MCH 28.8 MCHC 32.6 RDW 18.7 H Plt Count 219 MPV 11.5 Immature Gran % (Auto) 0.5 H Neut % (Auto) 78.7 H Lymph % (Auto) 10.7 L [place] % (Auto) 9.3 Eos % (Auto) 0.5 Baso % (Auto) 0.3 Lymph # (Auto) 1.0 L [place] # (Auto) 0.9 Eos # (Auto) 0.1 Baso # (Auto) 0.0 Abs Immat Gran (auto) 0.05 H Absolute Neuts (auto) 7.5 Absolute Nucleated RBC 0.000 Nucleated RBC % (auto) 0.0 PT INR Anion Gap 19 Estim Creat Clear Calc 21.3 Estimated GFR 19 Random Glucose 199 H Lactic Acid 1.5 Calcium 9.0 Total Bilirubin 3.4 H AST 113 H ALT 26 Alkaline Phosphatase 219 H Ammonia Total Protein 6.5 Albumin 2.6 L Urine Color Urine Appearance Urine pH Ur Specific [place] Urine Protein Urine Glucose (UA) Urine Ketones Urine Blood Urine Nitrite Ur Leukocyte Esterase Urine RBC Urine WBC Ur Squamous Epith Cells Calcium Oxalate Crystal Urine Bacteria Hyaline Casts 06/27/23 06/27/23 06/27/23 20:41 20:41 21:39 MCV MCH MCHC RDW Plt Count MPV Immature Gran % (Auto) Neut % (Auto) Lymph % (Auto) [place] % (Auto) Eos % (Auto) Baso % (Auto) Lymph # (Auto) [place] # (Auto) Eos # (Auto) Baso # (Auto) Abs Immat Gran (auto) Absolute Neuts (auto) Absolute Nucleated RBC Nucleated RBC % (auto) PT 24.2 H INR 2.0 H Anion Gap Estim Creat Clear Calc Estimated GFR Random Glucose Lactic Acid Calcium Total Bilirubin AST ALT Alkaline Phosphatase Ammonia 80 H Total Protein Albumin Urine Color Yellow Urine Appearance Hazy Urine pH 7.5 Ur Specific [place] 1.010 Urine Protein Negative Urine Glucose (UA) Negative Urine Ketones Negative Urine Blood Small (1+) H Urine Nitrite Negative Ur Leukocyte Esterase Large (3+) H Urine RBC 3-5 H Urine WBC >50 H Ur Squamous Epith Cells 6-10 Calcium Oxalate Crystal Present Urine Bacteria 2+ Hyaline Casts >20 Assessment and Plan (1) Acute metabolic encephalopathy: Status: Acute Plan This is a 73-year-old female with pertinent history of liver cirrhosis, congestive heart failure unspecified ejection fraction, insulin-dependent genaro betes mellitus, mood disorder, AFib on Eliquis who was brought to the emergency department for evaluation of altered mentation. #. Acute metabolic encephalopathy due to UTI leading to hepatic encephalopathy in a patient with liver cirrhosis. Administered [place] lactulose in ER. Initiating IV Rocephin for UTI. Follow blood cultures and urine culture. Follow ammonia level. #. Elevated creatinine. INGA versus CKD. Unclear baseline. Continue to monitor and avoid nephrotoxins. #. Hyponatremia. Resuscitated with IV crystalloids in the ER. Urine studies pending #. Insulin-dependent diabetes mellitus with hyperglycemia. Initiating basal plus insulin regimen #. Liver cirrhosis. Unclear etiology. Continue diuretics and lactulose as above #. Paroxysmal atrial fibrillation on Eliquis. Rate controlled in the ER. On amiodarone #. Congestive heart failure, unspecified ejection fraction. Continue home diuretics. No decompensation during admission #. Mood disorder. Continue home mood stabilizers Med rec pending DVT prophylaxis: Eliquis DNR/DNI. Discuss code status with family at bedside Admit as inpatient and will require two night minimum hospital stay for close monitoring of mentation and IV antibiotics. Time Spent With Patient Time: Total time managing care of this patient today ____ minutes. Quality Stroke Does the patient have a stroke diagnosis?: No VTE Prior VTE?: No VTE Risk Level:: Medical - moderate - high VTE Device Contraindication: Treatment Not Indicated VTE Drug Contraindication: N/A - Med Ordered
[2023-06-27] MEDS: 0.9 % Sodium Chloride 500 ML IV (22:50)
[2023-06-27 22:58] LABS: Glucose, Whole Blood 200 mg/dL (60-115)
[2023-06-27] MEDS: Lactulose 320 GM/480 ML SOLUTION 200 GM PR (23:08)
[2023-06-27] MEDS: Insulin Lispro 100 UNIT/ML 3 ML VIAL SUBCUT (23:08)
[2023-06-27] MEDS: Insulin Glargine,Hum.rec.anlog 100 UNIT/ML 10 ML VIAL 15 UNIT SUBCUT (23:09)
[2023-06-27] MEDS: Morphine Sulfate 2 MG/ML CARTRIDGE IVPUSH (23:09)
[2023-06-28 00:28] LABS: Osmolality, Serum 295 mosm/kg (281-305)
--- NOTE | 2023-06-28 00:37 | PC.NURSE ---
patient had large semi formed bowel movement. Pt cleaned and purewick placed for urinary incontinence. Small quarter size area of redness on coccyx. Mepilex foam dressing applied. Pt rotated to lay on left side to reduce pressure
[2023-06-28 00:39] VITALS: BP 122/42; PULSE 63; RESP 11; O2SAT 99
--- NOTE | 2023-06-28 01:38 | PC.NURSE ---
pt repositioned to other side for comfort. boosted in bed and given warm blanket
--- NOTE | 2023-06-28 02:27 | PC.NURSE ---
pt sleeping at this time, respirations even and unlabored, skin pwd, no apparent distress. 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
[2023-06-28 03:27] VITALS: BP 109/31; PULSE 60; RESP 10
[2023-06-28 04:45] LABS: Glucose, Whole Blood 164 mg/dL (60-115)
[2023-06-28 05:12] LABS: MANUAL DIFF FLAG NO
[2023-06-28 05:14] LABS: Basophils Percent Auto 0.3 % (0-2); Eosinophils Percent Auto 0.3 % (0-4); Hematocrit 28.5 % (37.0-47.0); Hemoglobin 9.2 g/dl (12.0-16.0); Imm Gran Abs Auto 0.03 X10*3/uL (0.00-0.03); Imm Gran Pct Auto 0.4 % (0.0-0.4); Lymphocytes Percent Auto 12.9 % (20-40); Mean Corpuscular HGB Conc 32.3 g/dl (31.0-35.0); Mean Corpuscular Hemoglobin 28.7 pg (27.0-33.0); Mean Corpuscular Volume 88.8 fL (80.0-98.0); Mean Platelet Volume 11.8 fL (9.4-12.3); Monocytes Absolute Auto 0.7 X10*3/uL (0.1-1.2); Monocytes Percent Auto 9.7 % (2-11); Neutrophils Absolute Auto 5.6 x10*3/uL (2.0-8.3); Neutrophils Percent Auto 76.4 % (45-73); Platelet Count 167 X10*3/uL (160-400); Red Blood Count 3.21 X10*6/uL (4.20-5.50); Red Cell Distribution Width 18.6 % (11.0-16.0); White Blood Count 7.4 X10*3/uL (4.8-10.8)
[2023-06-28 05:21] LABS: Ammonia 71 umol/L (13-55)
[2023-06-28 05:26] LABS: Anion Gap 18 (12-20); Blood Urea Nitrogen 44 mg/dL (9-16); Calcium 8.6 mg/dL (8.4-10.2); Carbon Dioxide 22 mmol/L (22-29); Chloride 96 mmol/L (96-108); Estimated Glomerular Filt Rate 21; Glucose Random 170 mg/dL (60-115); Potassium 4.1 mmol/L (3.3-5.1); Sodium 132 mmol/L (135-145)
[2023-06-28] MEDS: Insulin Lispro 100 UNIT/ML 3 ML VIAL SUBCUT (05:43)
[2023-06-28] MEDS: Midodrine HCl 5 MG TABLET PO (06:30)
[2023-06-28] MEDS: Omeprazole 20 MG CAPSULE.DR PO (06:30)
--- NOTE | 2023-06-28 07:14 | PC.NURSE ---
report taken from overnight rn, and given to overflow rn,
[2023-06-28 07:38] VITALS: BP 114/39; PULSE 63; RESP 19; TEMP 35.9; O2SAT 99
[2023-06-28] MEDS: ondansetron HCL 4 MG/2 ML VIAL IVPUSH (07:45)
--- NOTE | 2023-06-28 07:51 | HO.PM.IMPN ---
Subjective Subjective Date of Service: 06/29/23 Interval History: Upon metabolic encephalopathy, UTI, INGA Interval history: becoming more alert Physical Exam Vital Signs: Vital Signs: Last Vital Signs Temp 96.7 F L 06/28/23 07:38 Pulse 63 06/28/23 07:38 Resp 19 06/28/23 07:38 BP 114/39 L 06/28/23 07:38 Pulse Ox 99 06/28/23 07:38 O2 Del Method Room Air 06/28/23 07:38 BMI result Body Mass Index 33.9 Const: Other: General: no distres Resp: CTA bilateral CVS: S1,S2,RRR GI: +BS, NT, no distention Skin: No rash Neuro: motor grossly intact Psych: appropriate affect Objective Data Active Medications Acetaminophen (Acetaminophen 325 Mg Tablet) 650 mg PO Q6H PRN PRN Reason: Pain, Mild (Pain Scale 1-3) Acetaminophen (Acetaminophen Supp 650 Mg Supp.Rect) [address] Q6H PRN PRN Reason: Pain, Mild (Pain Scale 1-3) Acetaminophen (Acetaminophen 325 Mg Tablet) 325 mg PO Q8H PRN PRN Reason: Pain, Moderate(Pain Scale 4-6) Albuterol Sulfate (Albuterol Sulfate 90 Mcg 8 Gm Inhaler) 2 puff INHALE Q6H PRN PRN Reason: wheezing Amiodarone HCl (Amiodarone Hcl 200 Mg Tablet) 400 mg PO DAILY [facility] Apixaban (Apixaban 5 Mg Tablet) 5 mg PO BID [facility] [place] Cyanocobalamin (Cyanocobalamin (Vitamin B-12) 1,000 Mcg/Ml Vial) 1,000 mcg IM Q30D [facility] [place] Dextrose (Dextrose 50 % 25 Gm/50 Ml Syringe) 25 gm IVPUSH Q15M PRN; Protocol PRN Reason: per Hypoglycemia Standing Ord. Fluticasone/Umeclidinium/Vilanterol (Fluticasone/Umeclidinium/Vilanterol 200/62.5/25 Blst.W.Dev) 1 puff INHALE DAILY [facility] Last Admin: 06/28/23 07:34 Dose: Not Given Documented By: ROGERS Non-Admin Reason: pharmacy called Gabapentin (Gabapentin 100 Mg Capsule) 100 mg PO TID [facility] Glucose (Glucose Gel 15 Gm Gel..Gram.) 15 gm PO Q15M PRN; Protocol PRN Reason: per Hypoglycemia Standing Ord. Ceftriaxone Sodium 1 gm/ (Sodium Chloride) 50 mls @ 100 mls/hr IV Q24H [facility] [place] Insulin Glargine (Insulin Glargine,Hum.Rec.Anlog 100 Unit/Ml 10 Ml Vial) 15 unit SUBCUT BEDTIME [facility] Last Admin: 06/27/23 23:09 Dose: 15 unit Documented By: KRISTINA Insulin Human Lispro (Insulin Lispro 100 Unit/Ml 3 Ml Vial) 0 unit SUBCUT Q6H [facility] [place]; Protocol Last Admin: 06/28/23 05:43 Dose: 2 unit Documented By: TIMO Lactulose (Lactulose 20 Gm/30 Ml Solution) 30 gm PO BID [facility] [place] Melatonin (Melatonin 3 Mg Tablet) 6 mg PO BEDTIME PRN PRN Reason: Insomnia Midodrine (Midodrine Hcl 5 Mg Tablet) 5 mg PO BID@0600,1800 [facility] [place] Last Admin: 06/28/23 06:30 Dose: 5 mg Documented By: TIMO Omeprazole (Omeprazole 20 Mg Capsule.) 20 mg PO BID@0630,1630 [facility] [place] Last Admin: 06/28/23 06:30 Dose: 20 mg Documented By: TIMO Ondansetron HCl (Ondansetron Hcl 4 Mg/2 Ml Vial) 4 mg IVPUSH Q8H PRN PRN Reason: Nausea and Vomiting Last Admin: 06/28/23 07:45 Dose: 4 mg Documented By: REBECCA Ondansetron HCl (Ondansetron Odt 4 Mg Tab.Rapdis) 8 mg TRANSLINGU TID [facility] [place] Oxycodone HCl (Oxycodone Hcl Immed Release 5 Mg Tablet) 5 mg PO Q8H PRN PRN Reason: Pain, Moderate(Pain Scale 4-6) Polyethylene Glycol (Polyethylene Glycol 3350 17 Gm Powd.Pack) 17 gm PO DAILY [facility] [place] Potassium Chloride (Potassium Chloride Er 20 Meq Tab.Er.Prt) 20 meq PO DAILY [facility] [place] Sertraline HCl (Sertraline Hcl 100 Mg Tablet) 100 mg PO DAILY [facility] [place] Sodium Chloride (0.9 % Sodium Chloride Flush 3 Ml Syringe) 3 ml IVFLUSH QSHIFT [facility] [place] Last Admin: 06/27/23 23:37 Dose: Not Given Documented By: KRISTINA Non-Admin Reason: IV Running Spironolactone (Spironolactone 25 Mg Tablet) 100 mg PO BEDTIME [facility]; Protocol Torsemide (Torsemide 20 Mg Tablet) 100 mg PO DAILY [facility]; Protocol Trolamine Salicylate (Trolamine Salicylate 10 % Cream 85 Gm Tube) 1 appl TOPICAL BID [facility] Labs 06/28/23 05:07 06/28/23 05:07 Labs: Laboratory Results - last 24 hr 06/27/23 06/27/23 06/27/23 20:40 20:40 20:41 MCV 88.3 MCH 28.8 MCHC 32.6 RDW 18.7 H Plt Count 219 MPV 11.5 Immature Gran % (Auto) 0.5 H Neut % (Auto) 78.7 H Lymph % (Auto) 10.7 L [place] % (Auto) 9.3 Eos % (Auto) 0.5 Baso % (Auto) 0.3 Lymph # (Auto) 1.0 L [place] # (Auto) 0.9 Eos # (Auto) 0.1 Baso # (Auto) 0.0 Abs Immat Gran (auto) 0.05 H Absolute Neuts (auto) 7.5 Absolute Nucleated RBC 0.000 Nucleated RBC % (auto) 0.0 PT INR Anion Gap 19 Estim Creat Clear Calc 21.3 Estimated GFR 19 POC Glucose Random Glucose 199 H Osmolality Lactic Acid 1.5 Calcium 9.0 Total Bilirubin 3.4 H AST 113 H ALT 26 Alkaline Phosphatase 219 H Ammonia Total Protein 6.5 Albumin 2.6 L Urine Color Urine Appearance Urine pH Ur Specific [place] Urine Protein Urine Glucose (UA) Urine Ketones Urine Blood Urine Nitrite Ur Leukocyte Esterase Urine RBC Urine WBC Ur Squamous Epith Cells Calcium Oxalate Crystal Urine Bacteria Hyaline Casts Ur Random Sodium 06/27/23 06/27/23 06/27/23 20:41 20:41 20:41 MCV MCH MCHC RDW Plt Count MPV Immature Gran % (Auto) Neut % (Auto) Lymph % (Auto) [place] % (Auto) Eos % (Auto) Baso % (Auto) Lymph # (Auto) [place] # (Auto) Eos # (Auto) Baso # (Auto) Abs Immat Gran (auto) Absolute Neuts (auto) Absolute Nucleated RBC Nucleated RBC % (auto) PT 24.2 H INR 2.0 H Anion Gap Estim Creat Clear Calc Estimated GFR POC Glucose Random Glucose Osmolality Lactic Acid Calcium Total Bilirubin AST ALT Alkaline Phosphatase Ammonia Total Protein Albumin Urine Color Yellow Urine Appearance Hazy Urine pH 7.5 Ur Specific [place] 1.010 Urine Protein Negative Urine Glucose (UA) Negative Urine Ketones Negative Urine Blood Small (1+) H Urine Nitrite Negative Ur Leukocyte Esterase Large (3+) H Urine RBC 3-5 H Urine WBC >50 H Ur Squamous Epith Cells 6-10 Calcium Oxalate Crystal Present Urine Bacteria 2+ Hyaline Casts >20 Ur Random Sodium 67.0 06/27/23 06/27/23 06/27/23 21:39 22:55 23:53 MCV MCH MCHC RDW Plt Count MPV Immature Gran % (Auto) Neut % (Auto) Lymph % (Auto) [place] % (Auto) Eos % (Auto) Baso % (Auto) Lymph # (Auto) [place] # (Auto) Eos # (Auto) Baso # (Auto) Abs Immat Gran (auto) Absolute Neuts (auto) Absolute Nucleated RBC Nucleated RBC % (auto) PT INR Anion Gap Estim Creat Clear Calc Estimated GFR POC Glucose 200 H Random Glucose Osmolality 295 Lactic Acid Calcium Total Bilirubin AST ALT Alkaline Phosphatase Ammonia 80 H Total Protein Albumin Urine Color Urine Appearance Urine pH Ur Specific [place] Urine Protein Urine Glucose (UA) Urine Ketones Urine Blood Urine Nitrite Ur Leukocyte Esterase Urine RBC Urine WBC Ur Squamous Epith Cells Calcium Oxalate Crystal Urine Bacteria Hyaline Casts Ur Random Sodium 06/28/23 06/28/23 06/28/23 04:40 05:07 05:07 MCV 88.8 MCH 28.7 MCHC 32.3 RDW 18.6 H Plt Count 167 MPV 11.8 Immature Gran % (Auto) 0.4 Neut % (Auto) 76.4 H Lymph % (Auto) 12.9 L [place] % (Auto) 9.7 Eos % (Auto) 0.3 Baso % (Auto) 0.3 Lymph # (Auto) 1.0 L [place] # (Auto) 0.7 Eos # (Auto) 0.0 Baso # (Auto) 0.0 Abs Immat Gran (auto) 0.03 Absolute Neuts (auto) 5.6 Absolute Nucleated RBC 0.000 Nucleated RBC % (auto) 0.0 PT INR Anion Gap Estim Creat Clear Calc Estimated GFR POC Glucose 164 H Random Glucose Osmolality Lactic Acid Calcium Total Bilirubin AST ALT Alkaline Phosphatase Ammonia 71 H Total Protein Albumin Urine Color Urine Appearance Urine pH Ur Specific [place] Urine Protein Urine Glucose (UA) Urine Ketones Urine Blood Urine Nitrite Ur Leukocyte Esterase Urine RBC Urine WBC Ur Squamous Epith Cells Calcium Oxalate Crystal Urine Bacteria Hyaline Casts Ur Random Sodium 06/28/23 05:07 MCV MCH MCHC RDW Plt Count MPV Immature Gran % (Auto) Neut % (Auto) Lymph % (Auto) [place] % (Auto) Eos % (Auto) Baso % (Auto) Lymph # (Auto) [place] # (Auto) Eos # (Auto) Baso # (Auto) Abs Immat Gran (auto) Absolute Neuts (auto) Absolute Nucleated RBC Nucleated RBC % (auto) PT INR Anion Gap 18 Estim Creat Clear Calc 23.0 Estimated GFR 21 POC Glucose Random Glucose 170 H Osmolality Lactic Acid Calcium 8.6 Total Bilirubin AST ALT Alkaline Phosphatase Ammonia Total Protein Albumin Urine Color Urine Appearance Urine pH Ur Specific [place] Urine Protein Urine Glucose (UA) Urine Ketones Urine Blood Urine Nitrite Ur Leukocyte Esterase Urine RBC Urine WBC Ur Squamous Epith Cells Calcium Oxalate Crystal Urine Bacteria Hyaline Casts Ur Random Sodium Assessment and Plan (1) Acute metabolic encephalopathy: Status: Acute (2) Acute UTI: Status: Acute Plan This is a 73-year-old female with pertinent history of liver cirrhosis, congestive heart failure unspecified ejection fraction, insulin-dependent diabetes mellitus, mood disorder, AFib on Eliquis who was brought to the emergency department for evaluation of altered mentation. #.? Acute metabolic encephalopathy due to UTI and hepatic encephalopathy in a patient with liver cirrhosis.? Administered CT lactulose in ER.? Initiating IV Rocephin for UTI.? Follow blood cultures and urine culture.? ammonia level trending down #.? Elevated creatinine.? INGA versus CKD vs Hepatorenal syndrome.? Unclear baseline.? Continue to monitor and avoid nephrotoxins. Consult nephrology, follow labs #.? HypOnatremia d/t cirrhosis.? Resuscitated with IV crystalloids in the ER.? Urine studies pending, sodium is better today #.? Insulin-dependent diabetes mellitus with hyperglycemia.? basal plus insulin regimen #.? Liver cirrhosis.? Unclear etiology.? Continue diuretics and lactulose as above #.? Paroxysmal atrial fibrillation on Eliquis.? Rate controlled in the ER.? continue amiodarone #.? Congestive heart failure, unspecified ejection fraction.? Continue home diuretics.? No decompensation during admission #.? Mood disorder.? Continue home mood stabilizers DVT prophylaxis: Liz DNR/DNI.? Discussed by Dr. Williamson with family at bedside Need for inaptient: IV Abx for UTI leading to metabolic encephalopathy Time Spent With Patient Time: Total time managing care of this patient today ____ minutes. Quality Stroke Does the patient have a stroke diagnosis?: No VTE Prior VTE?: No VTE Risk Level:: Medical - moderate - high VTE Device Contraindication: Treatment Not Indicated VTE Drug Contraindication: N/A - Med Ordered
[2023-06-28] MEDS: polyethylene glycoL 3350 17 GM POWD.PACK PO (10:56)
[2023-06-28] MEDS: Potassium Chloride ER 20 MEQ TAB.ER.PRT PO (10:57)
[2023-06-28] MEDS: Ondansetron ODT 4 MG TAB.RAPDIS 8 MG TRANSLINGU ×3 (10:57→20:06)
[2023-06-28] MEDS: Apixaban 5 MG TABLET PO ×2 (10:57→20:04)
[2023-06-28] MEDS: Torsemide 20 MG TABLET 100 MG PO (10:57)
[2023-06-28] MEDS: Amiodarone HCL 200 MG TABLET 400 MG PO (10:57)
[2023-06-28] MEDS: Sertraline HCL 100 MG TABLET PO (10:57)
[2023-06-28] MEDS: Gabapentin 100 MG CAPSULE PO ×3 (10:57→20:04)
[2023-06-28] MEDS: Lactulose 20 GM/30 ML SOLUTION 30 GM PO ×2 (10:58→20:06)
[2023-06-28] MEDS: 0.9 % Sodium Chloride Flush 3 ML SYRINGE IVFLUSH ×3 (10:58→19:35)
[2023-06-28] MEDS: Trolamine Salicylate 10 % Cream 85 GM TUBE 1 APPL TOPICAL ×2 (11:11→20:18)
[2023-06-28 11:51] LABS: Glucose, Whole Blood 156 mg/dL (60-115)
[2023-06-28 12:51] VITALS: PULSE 62; RESP 19; TEMP 36.7; O2SAT 100
--- NOTE | 2023-06-28 15:04 | PM.NEUROCN ---
History of Present Illness Data of Consult Service Date: 06/28/23 Requesting physician: Shyam Batista Primary Care Provider: Unknown Physician HPI Reason for consult: INGA Asked to see [facility] Past Medical History Medical History Atrial fibrillation CHF (congestive heart failure) COPD (chronic obstructive pulmonary disease) Hypertension Pulmonary hypertension Type 2 diabetes mellitus Family History Pertinent family history: Unable to obtain Social History Social History Household Members: Children Housing: House Unable to assess alcohol history related to: Unknown Alcohol intake: never Patient Tobacco Use Status: Tobacco use Unknown Smoked in Last 30 Days: No Use of substances other than those prescribed or required for medical reasons: Unknown Advance Directives: No Advance Directives Information Provided: No Advance Directives on File: No Do you have thoughts of harming others: None Do you have a plan to hurt others: No Plan Recently lost weight without trying: Unsure How much weight loss: Unsure Nutrition Risks: No Nutritional Risk Patient : No : No Poor oral hygiene: No Meds Allergies Allergy/AdvReac Type Severity Reaction Status Date / Time lisinopril Allergy cough Uncoded 03/13/23 13:57 tramadol AdvReac Mild vomiting Uncoded 03/13/23 13:57 Active Medications: Current Medications Acetaminophen (Acetaminophen 325 Mg Tablet) 650 mg PO Q6H PRN PRN Reason: Pain, Mild (Pain Scale 1-3) Acetaminophen (Acetaminophen Supp 650 Mg Supp.Rect) 650 mg NE Q6H PRN PRN Reason: Pain, Mild (Pain Scale 1-3) Acetaminophen (Acetaminophen 325 Mg Tablet) 325 mg PO Q8H PRN PRN Reason: Pain, Moderate(Pain Scale 4-6) Albuterol Sulfate (Albuterol Sulfate 90 Mcg 8 Gm Inhaler) 2 puff INHALE Q6H PRN PRN Reason: wheezing Amiodarone HCl (Amiodarone Hcl 200 Mg Tablet) 400 mg PO DAILY [facility] Last Admin: 06/28/23 10:57 Dose: 400 mg Apixaban (Apixaban 5 Mg Tablet) 5 mg PO BID [facility] Last Admin: 06/28/23 10:57 Dose: 5 mg Cyanocobalamin (Cyanocobalamin (Vitamin B-12) 1,000 Mcg/Ml Vial) 1,000 mcg IM Q30D [facility] Dextrose (Dextrose 50 % 25 Gm/50 Ml Syringe) 25 gm IVPUSH Q15M PRN; Protocol PRN Reason: per Hypoglycemia Standing Ord. Fluticasone/Umeclidinium/Vilanterol (Fluticasone/Umeclidinium/Vilanterol 200/62.5/25 Blst.W.Dev) 1 puff INHALE DAILY [facility] Last Admin: 06/28/23 07:34 Dose: Not Given Gabapentin (Gabapentin 100 Mg Capsule) 100 mg PO TID [facility] Last Admin: 06/28/23 10:57 Dose: 100 mg Glucose (Glucose Gel 15 Gm Gel..Gram.) 15 gm PO Q15M PRN; Protocol PRN Reason: per Hypoglycemia Standing Ord. Ceftriaxone Sodium 1 gm/ (Sodium Chloride) 50 mls @ 100 mls/hr IV Q24H [facility] Insulin Glargine (Insulin Glargine,Hum.Rec.Anlog 100 Unit/Ml 10 Ml Vial) 15 unit SUBCUT BEDTIME [facility] Last Admin: 06/27/23 23:09 Dose: 15 unit Insulin Human Lispro (Insulin Lispro 100 Unit/Ml 3 Ml Vial) 0 unit SUBCUT Q6H [facility]; Protocol Last Admin: 06/28/23 12:31 Dose: Not Given Lactulose (Lactulose 20 Gm/30 Ml Solution) 30 gm PO BID [facility] Last Admin: 06/28/23 10:58 Dose: 30 gm Melatonin (Melatonin 3 Mg Tablet) 6 mg PO BEDTIME PRN PRN Reason: Insomnia Midodrine (Midodrine Hcl 5 Mg Tablet) 5 mg PO BID@0600,1800 [facility] Last Admin: 06/28/23 06:30 Dose: 5 mg Omeprazole (Omeprazole 20 Mg Capsule.Dr) 20 mg PO BID@0630,1630 [facility] Last Admin: 06/28/23 06:30 Dose: 20 mg Ondansetron HCl (Ondansetron Hcl 4 Mg/2 Ml Vial) 4 mg IVPUSH Q8H PRN PRN Reason: Nausea and Vomiting Last Admin: 06/28/23 07:45 Dose: 4 mg Ondansetron HCl (Ondansetron Odt 4 Mg Tab.Rapdis) 8 mg TRANSLINGU TID [facility] Last Admin: 06/28/23 10:57 Dose: 8 mg Oxycodone HCl (Oxycodone Hcl Immed Release 5 Mg Tablet) 5 mg PO Q8H PRN PRN Reason: Pain, Moderate(Pain Scale 4-6) Polyethylene Glycol (Polyethylene Glycol 3350 17 Gm Powd.Pack) 17 gm PO DAILY [facility] Last Admin: 06/28/23 10:56 Dose: 17 gm Potassium Chloride (Potassium Chloride Er 20 Meq Tab.Er.Prt) 20 meq PO DAILY [facility] Last Admin: 06/28/23 10:57 Dose: 20 meq Sertraline HCl (Sertraline Hcl 100 Mg Tablet) 100 mg PO DAILY [facility] Last Admin: 06/28/23 10:57 Dose: 100 mg Sodium Chloride (0.9 % Sodium Chloride Flush 3 Ml Syringe) 3 ml IVFLUSH QSHIFT [facility] Last Admin: 06/28/23 10:58 Dose: 3 ml Spironolactone (Spironolactone 25 Mg Tablet) 100 mg PO BEDTIME [facility]; Protocol Torsemide (Torsemide 20 Mg Tablet) 100 mg PO DAILY [facility]; Protocol Last Admin: 06/28/23 10:57 Dose: 100 mg Trolamine Salicylate (Trolamine Salicylate 10 % Cream 85 Gm Tube) 1 appl TOPICAL BID [facility] Last Admin: 06/28/23 11:11 Dose: 1 appl Home Medications Medication Instructions Recorded Confirmed Last Taken Type albuterol sulfate 90 mcg/actuation 2 puff inhalation Q6H PRN wheezing 06/27/23 06/27/23 Unknown History aerosol inhaler amiodarone 400 mg tablet 400 mg PO DAILY 06/27/23 06/27/23 Unknown History apixaban 5 mg tablet 5 mg PO BID 06/27/23 06/27/23 Unknown History cyanocobalamin (vitamin B-12) 1,000 mcg IM Q30D 06/27/23 06/27/23 Unknown History 1,000 mcg/mL injection kit fluticasone fur. 200 mcg-umeclid 1 inh inhalation DAILY 06/27/23 06/27/23 Unknown History 62.5 mcg-vilant 25 mcg inhalat.powder (Trelegy Ellipta) gabapentin 100 mg capsule 100 mg PO TID 06/27/23 06/27/23 Unknown History insulin glargine 100 unit/mL 32 unit subcut BEDTIME 06/27/23 06/27/23 Unknown History subcutaneous solution lactulose 10 gram/15 mL oral 45 ml PO BID 06/27/23 06/27/23 Unknown History solution methyl salicylate 15 %-menthol 10 1 appl topical BID 06/27/23 06/27/23 Unknown History % topical cream (Muscle Rub) midodrine 10 mg tablet 5 mg PO BID 06/27/23 06/27/23 Unknown History omeprazole 20 mg capsule,delayed 20 mg PO BID 06/27/23 06/27/23 Unknown History release ondansetron HCl 4 mg tablet 8 mg PO TID 06/27/23 06/27/23 Unknown History oxycodone-acetaminophen 5 mg-325 1 tab PO Q8H PRN Pain 06/27/23 06/27/23 Unknown History mg tablet (Percocet) polyethylene glycol 3350 17 gram 17 g PO DAILY 06/27/23 06/27/23 Unknown History oral powder packet (Miralax) potassium chloride 20 mEq 20 meq PO DAILY 06/27/23 06/27/23 Unknown History tablet,extended release sertraline 50 mg tablet 100 mg PO DAILY 06/27/23 06/27/23 Unknown History spironolactone 100 mg tablet 100 mg PO BEDTIME 06/27/23 06/27/23 Unknown History torsemide 100 mg tablet 100 mg PO DAILY 06/27/23 06/27/23 Unknown History Physical Exam Vital Signs: Vital Signs: Last Vital Signs Temp 98.1 F 06/28/23 12:51 Pulse 62 06/28/23 12:51 Resp 19 06/28/23 12:51 BP 114/39 L 06/28/23 07:38 Pulse Ox 100 06/28/23 12:51 O2 Del Method Room Air 06/28/23 12:51 BMI result Body Mass Index 33.9 Const: Other: General: Resp: CTA bilateral CVS: S1,S2,RRR GI: +BS, NT, no distention Skin: No rash Neuro: motor grossly intact Psych: appropriate affect Results Labs 06/28/23 05:07 06/28/23 05:07 Labs: Short CBC 06/27/23 06/28/23 Range/Units 20:41 05:07 WBC 9.5 7.4 (4.8-10.8) X10*3/uL Hgb 10.1 L 9.2 L (12.0-16.0) g/dl Hct 31.0 L 28.5 L (37.0-47.0) % Plt Count 219 167 (160-400) X10*3/uL BMP 06/27/23 06/28/23 20:40 05:07 Sodium 129 L 132 L Potassium 4.8 4.1 Chloride 92 L 96 Carbon Dioxide 23 22 BUN 46 H 44 H Creatinine 2.47 H 2.28 H Calcium 9.0 8.6 Liver Function 06/27/23 Range/Units 20:40 Total Bilirubin 3.4 H (0.0-1.0) mg/dL AST 113 H (5-31) U/L ALT 26 (0-31) U/L Alkaline Phosphatase 219 H (39-117) U/L Albumin 2.6 L (3.5-5.0) g/dL Urine 06/27/23 Range/Units 20:41 Urine Color Yellow Urine Appearance Hazy Urine pH 7.5 (5.0-9.0) Ur Specific [place] 1.010 (1.005-1.025) Urine Protein Negative (Neg-Trace) mg/dL Urine Glucose (UA) Negative (Negative) mg/dL Microbiology Microbiology Results: Microbiology 06/27/23 20:41 Urine clean catch - Urine titus top Urine Culture - Preliminary Culture in progress. Assessment and Plan Time Spent With Patient Time: Total time managing care of this patient today ____ minutes. Procedures Date of Service Date of Service: 06/28/23
--- NOTE | 2023-06-28 15:20 | MHC.CLN ---
NUTRITION CONSULT FOR IMPAIRED SKIN INTEGRITY. REDNESS TO COCCYX NOTED. PATIENT WITH DECREASED PO INTAKE 3-4 DAYS PRIOR TO HOSPITALIZATION. SEEN BY MANAGED [employer]ES CONSULTANT WITH DIET RECOMMENDATION FOR PUREE WITH THIN LIQUIDS. ADDING ENSURE TID TO IMPROVE NUTRITIONAL INTAKE. SUPPLEMENT PROVIDES ADDITIONAL 1050 KCALS, 60 G PROTEIN. MONITOR FOR PO INTAKE AND SKIN INTEGRITY.
[2023-06-28 16:00] VITALS: BP 118/54; PULSE 65; RESP 18; TEMP 36.1; O2SAT 100
[2023-06-28 16:14] LABS: Glucose, Whole Blood 142 mg/dL (60-115)
--- NOTE | 2023-06-28 16:54 | P.CONNP_ITS ---
History of Present Illness Reason for Consult Consult date: 06/28/23 Reason for consult: INGA Chief Complaint Chief complaint: Altered Mentation History of Present Illness Narrative: Bella is a 73 yo woman with a diagnosis of cirrhosis whom we are asked to see for INGA. She was brought in by family due to AMS. Her creatinine on arrival is 2.28. Renal CT shows no abnormalities other than a small hypodensity in one kidney. She is unable to give me a history due to altered mentation. UA shows pyuria and hematuria. She has comorbidities including DM II, afib on anticoagulation, COPD and pulm HTN along with CHF. She is anemic with relatively normal platelet count 172. Hg is 9.2. I do not see an ammonia level as yet. Review of Systems Review of Systems Yes Unobtainable due to mental status PMFSH Past Medical History Medical History Atrial fibrillation CHF (congestive heart failure) COPD (chronic obstructive pulmonary disease) Hypertension Pulmonary hypertension Type 2 diabetes mellitus Family History Pertinent family history: Unable to obtain Social History Social History Household Members: Children Housing: House Unable to assess alcohol history related to: Unknown Alcohol intake: never Patient Tobacco Use Status: Tobacco use Unknown Smoked in Last 30 Days: No Use of substances other than those prescribed or required for medical reasons: Unknown Currently Displaying Signs/Symptoms of Drug Intoxication Withdrawal: No Advance Directives: No Advance Directives Information Provided: No Advance Directives on File: No Do you have thoughts of harming others: None Do you have a plan to hurt others: No Plan Recently lost weight without trying: Unsure How much weight loss: Unsure Nutrition Risks: No Nutritional Risk Patient : No : No Poor oral hygiene: No Meds Allergies Allergy/AdvReac Type Severity Reaction Status Date / Time lisinopril Allergy cough Uncoded 03/13/23 13:57 tramadol AdvReac Mild vomiting Uncoded 03/13/23 13:57 Active Medications: Current Medications Acetaminophen (Acetaminophen 325 Mg Tablet) 650 mg PO Q6H PRN PRN Reason: Pain, Mild (Pain Scale 1-3) Acetaminophen (Acetaminophen Supp 650 Mg Supp.Rect) 650 mg ND Q6H PRN PRN Reason: Pain, Mild (Pain Scale 1-3) Acetaminophen (Acetaminophen 325 Mg Tablet) 325 mg PO Q8H PRN PRN Reason: Pain, Moderate(Pain Scale 4-6) Albuterol Sulfate (Albuterol Sulfate 90 Mcg 8 Gm Inhaler) 2 puff INHALE Q6H PRN PRN Reason: wheezing Amiodarone HCl (Amiodarone Hcl 200 Mg Tablet) 400 mg PO DAILY [facility] Last Admin: 06/28/23 10:57 Dose: 400 mg Apixaban (Apixaban 5 Mg Tablet) 5 mg PO BID [facility] Last Admin: 06/28/23 10:57 Dose: 5 mg Cyanocobalamin (Cyanocobalamin (Vitamin B-12) 1,000 Mcg/Ml Vial) 1,000 mcg IM Q30D [facility] Dextrose (Dextrose 50 % 25 Gm/50 Ml Syringe) 25 gm IVPUSH Q15M PRN; Protocol PRN Reason: per Hypoglycemia Standing Ord. Fluticasone/Umeclidinium/Vilanterol (Fluticasone/Umeclidinium/Vilanterol 200/62.5/25 Blst.W.Dev) 1 puff INHALE DAILY [facility] Last Admin: 06/28/23 07:34 Dose: Not Given Gabapentin (Gabapentin 100 Mg Capsule) 100 mg PO TID [facility] Last Admin: 06/28/23 15:20 Dose: 100 mg Glucose (Glucose Gel 15 Gm Gel..Gram.) 15 gm PO Q15M PRN; Protocol PRN Reason: per Hypoglycemia Standing Ord. Ceftriaxone Sodium 1 gm/ (Sodium Chloride) 50 mls @ 100 mls/hr IV Q24H [facility] Insulin Glargine (Insulin Glargine,Hum.Rec.Anlog 100 Unit/Ml 10 Ml Vial) 15 unit SUBCUT BEDTIME [facility] Last Admin: 06/27/23 23:09 Dose: 15 unit Insulin Human Lispro (Insulin Lispro 100 Unit/Ml 3 Ml Vial) 0 unit SUBCUT Q6H [facility]; Protocol Last Admin: 06/28/23 16:15 Dose: Not Given Lactulose (Lactulose 20 Gm/30 Ml Solution) 30 gm PO BID [facility] Last Admin: 06/28/23 10:58 Dose: 30 gm Melatonin (Melatonin 3 Mg Tablet) 6 mg PO BEDTIME PRN PRN Reason: Insomnia Midodrine (Midodrine Hcl 5 Mg Tablet) 5 mg PO BID@0600,1800 [facility] Last Admin: 06/28/23 06:30 Dose: 5 mg Omeprazole (Omeprazole 20 Mg Capsule.Dr) 20 mg PO BID@0630,1630 [facility] Last Admin: 06/28/23 15:19 Dose: Not Given Ondansetron HCl (Ondansetron Hcl 4 Mg/2 Ml Vial) 4 mg IVPUSH Q8H PRN PRN Reason: Nausea and Vomiting Last Admin: 06/28/23 07:45 Dose: 4 mg Ondansetron HCl (Ondansetron Odt 4 Mg Tab.Rapdis) 8 mg TRANSLINGU TID [facility] Last Admin: 06/28/23 15:21 Dose: 8 mg Oxycodone HCl (Oxycodone Hcl Immed Release 5 Mg Tablet) 5 mg PO Q8H PRN PRN Reason: Pain, Moderate(Pain Scale 4-6) Polyethylene Glycol (Polyethylene Glycol 3350 17 Gm Powd.Pack) 17 gm PO DAILY [facility] Last Admin: 06/28/23 10:56 Dose: 17 gm Potassium Chloride (Potassium Chloride Er 20 Meq Tab.Er.Prt) 20 meq PO DAILY [facility] Last Admin: 06/28/23 10:57 Dose: 20 meq Sertraline HCl (Sertraline Hcl 100 Mg Tablet) 100 mg PO DAILY [facility] Last Admin: 06/28/23 10:57 Dose: 100 mg Sodium Chloride (0.9 % Sodium Chloride Flush 3 Ml Syringe) 3 ml IVFLUSH QSHIFT [facility] Last Admin: 06/28/23 15:21 Dose: 3 ml Spironolactone (Spironolactone 25 Mg Tablet) 100 mg PO BEDTIME [facility]; Protocol Torsemide (Torsemide 20 Mg Tablet) 100 mg PO DAILY [facility]; Protocol Last Admin: 06/28/23 10:57 Dose: 100 mg Trolamine Salicylate (Trolamine Salicylate 10 % Cream 85 Gm Tube) 1 appl TOPICAL BID [facility] Last Admin: 06/28/23 11:11 Dose: 1 appl Home Medications Medication Instructions Recorded Confirmed Last Taken Type albuterol sulfate 90 mcg/actuation 2 puff inhalation Q6H PRN wheezing 06/27/23 06/27/23 Unknown History aerosol inhaler amiodarone 400 mg tablet 400 mg PO DAILY 06/27/23 06/27/23 Unknown History apixaban 5 mg tablet 5 mg PO BID 06/27/23 06/27/23 Unknown History cyanocobalamin (vitamin B-12) 1,000 mcg IM Q30D 06/27/23 06/27/23 Unknown History 1,000 mcg/mL injection kit fluticasone fur. 200 mcg-umeclid 1 inh inhalation DAILY 06/27/23 06/27/23 Unknown History 62.5 mcg-vilant 25 mcg inhalat.powder (Trelegy Ellipta) gabapentin 100 mg capsule 100 mg PO TID 06/27/23 06/27/23 Unknown History insulin glargine 100 unit/mL 32 unit subcut BEDTIME 06/27/23 06/27/23 Unknown History subcutaneous solution lactulose 10 gram/15 mL oral 45 ml PO BID 06/27/23 06/27/23 Unknown History solution methyl salicylate 15 %-menthol 10 1 appl topical BID 06/27/23 06/27/23 Unknown History % topical cream (Muscle Rub) midodrine 10 mg tablet 5 mg PO BID 06/27/23 06/27/23 Unknown History omeprazole 20 mg capsule,delayed 20 mg PO BID 06/27/23 06/27/23 Unknown History release ondansetron HCl 4 mg tablet 8 mg PO TID 06/27/23 06/27/23 Unknown History oxycodone-acetaminophen 5 mg-325 1 tab PO Q8H PRN Pain 06/27/23 06/27/23 Unknown History mg tablet (Percocet) polyethylene glycol 3350 17 gram 17 g PO DAILY 06/27/23 06/27/23 Unknown History oral powder packet (Miralax) potassium chloride 20 mEq 20 meq PO DAILY 06/27/23 06/27/23 Unknown History tablet,extended release sertraline 50 mg tablet 100 mg PO DAILY 06/27/23 06/27/23 Unknown History spironolactone 100 mg tablet 100 mg PO BEDTIME 06/27/23 06/27/23 Unknown History torsemide 100 mg tablet 100 mg PO DAILY 06/27/23 06/27/23 Unknown History Physical Exam Vital Signs: Last Vital Signs Temp 98.1 F 06/28/23 12:51 Pulse 62 06/28/23 12:51 Resp 19 06/28/23 12:51 BP 114/39 L 06/28/23 07:38 Pulse Ox 100 06/28/23 12:51 O2 Del Method Room Air 06/28/23 12:51 BMI result Body Mass Index 33.9 Const General: cooperative, comfortable, no acute distress and lethargic Orientation/consciousness: lethargic HEENT Other: PERRLA, no facial asymmetry; she is pale Neck Other: ecchymosis right side of neck, no JVD Resp Other: clear to auscultation without rales Cardio Jugular venous distension: no JVD Rate: tachycardic Rhythm: abnormal rhythm Heart sounds: S1 normal heart sound present and S2 normal heart sound present GI Other: abdomen obese Extrem Other: Bilateral LE edema 1 plus pretib Psych Other: pt is having a hard time answering questions, saying her name or responding; she is verbalizing but appears confused , encephalopathic, tremor in RUE Mental Status: other Results Lab Results 06/28/23 05:07 06/28/23 05:07 Lab results: Chemistry 06/27/23 06/28/23 20:40 05:07 Sodium 129 L 132 L Potassium 4.8 4.1 Carbon Dioxide 23 22 BUN 46 H 44 H Creatinine 2.47 H 2.28 H Calcium 9.0 8.6 Hematology 06/27/23 06/28/23 20:41 05:07 WBC 9.5 7.4 Hgb 10.1 L 9.2 L Plt Count 219 167 Urinalysis 06/27/23 20:41 Urine Color Yellow Urine Appearance Hazy Urine pH 7.5 Ur Specific [place] 1.010 Urine Protein Negative Urine Glucose (UA) Negative Urine Ketones Negative Urine Blood Small (1+) H Urine Nitrite Negative Ur Leukocyte Esterase Large (3+) H Urine RBC 3-5 H Urine WBC >50 H Ur Squamous Epith Cells 6-10 Hyaline Casts >20 Assessment and Plan (1) Acute kidney injury: Status: Acute INGA in a patient with cirrhosis on diuretics who presents with apparent UTI DDX includes prerenal INGA, septic ATN; less likely HRS She has effective hypovolemia despite edema Would hold all diuretics at this time and give gentle fluids at 75 /hr normal saline Treat likely UTI with ceftriaxone (2) Hyponatremia: Status: Acute ON diuretics, effective hypovolemia, cirrhosis Hold diuretics for now (3) Acute UTI: Status: Acute (4) Acute metabolic encephalopathy: Status: Acute check ammonia level; may need lactulose (5) Cirrhosis: Status: Acute Plan Stop all diuretics: torsemide and spironolactone Check ammonia level Treat infection Gentle normal saline at 75/hr Time Spent With Patient Time: Total time managing care of this patient today ____ minutes. Procedures Date of Service Date of Service: 06/28/23
[2023-06-28 19:46] VITALS: BP 107/52; PULSE 67; RESP 18; TEMP 36; O2SAT 99
[2023-06-28] MEDS: Spironolactone 25 MG TABLET 100 MG PO (20:06)
[2023-06-28 22:20] LABS: Glucose, Whole Blood 168 mg/dL (60-115)
[2023-06-28] MEDS: cefTRIAXone sodium 1 GM in 0.9 % Sodium Chloride 50 ML IV (22:47)
[2023-06-29 03:52] VITALS: BP 138/65; PULSE 64; RESP 18; TEMP 35.4; O2SAT 97
[2023-06-29 05:26] LABS: Glucose, Whole Blood 172 mg/dL (60-115)
[2023-06-29] MEDS: Midodrine HCl 5 MG TABLET PO (06:18)
[2023-06-29] MEDS: Omeprazole 20 MG CAPSULE.DR PO ×2 (06:18→16:38)
[2023-06-29 07:53] VITALS: BP 113/53; PULSE 64; RESP 18; TEMP 36.1; O2SAT 99
[2023-06-29] MEDS: Fluticasone/Umeclidinium/Vilanterol 200/62.5/25 BLST.W.DEV 1 PUFF INHALE (08:01)
[2023-06-29 08:02] VITALS: PULSE 64; RESP 16; O2SAT 98
[2023-06-29] MEDS: Lactulose 20 GM/30 ML SOLUTION 30 GM PO (08:26)
[2023-06-29] MEDS: polyethylene glycoL 3350 17 GM POWD.PACK PO (08:26)
[2023-06-29] MEDS: Torsemide 20 MG TABLET 100 MG PO (08:27)
[2023-06-29] MEDS: Amiodarone HCL 200 MG TABLET 400 MG PO (08:27)
[2023-06-29] MEDS: Potassium Chloride ER 20 MEQ TAB.ER.PRT PO (08:27)
[2023-06-29] MEDS: Sertraline HCL 100 MG TABLET PO (08:28)
[2023-06-29] MEDS: Ondansetron ODT 4 MG TAB.RAPDIS 8 MG TRANSLINGU ×3 (08:28→20:03)
[2023-06-29] MEDS: 0.9 % Sodium Chloride Flush 3 ML SYRINGE IVFLUSH ×3 (08:28→19:49)
[2023-06-29] MEDS: Apixaban 5 MG TABLET PO (08:28)
[2023-06-29] MEDS: Gabapentin 100 MG CAPSULE PO ×2 (08:28→16:38)
[2023-06-29] MEDS: Trolamine Salicylate 10 % Cream 85 GM TUBE 1 APPL TOPICAL ×2 (08:46→20:09)
--- NOTE | 2023-06-29 08:56 | P.PNIM_ITS ---
Subjective Subjective Date of Service: 06/29/23 Physical Exam Vital Signs: Vital Signs: Last Vital Signs Temp 96.9 F 06/29/23 07:53 Pulse 64 06/29/23 08:02 Resp 16 06/29/23 08:02 BP 113/53 L 06/29/23 07:53 Pulse Ox 99 06/29/23 07:53 O2 Del Method Room Air 06/29/23 07:53 BMI result Body Mass Index 33.9 Objective Data Active Medications Acetaminophen (Acetaminophen 325 Mg Tablet) 650 mg PO Q6H PRN PRN Reason: Pain, Mild (Pain Scale 1-3) Acetaminophen (Acetaminophen Supp 650 Mg Supp.Rect) 650 mg ME Q6H PRN PRN Reason: Pain, Mild (Pain Scale 1-3) Acetaminophen (Acetaminophen 325 Mg Tablet) 325 mg PO Q8H PRN PRN Reason: Pain, Moderate(Pain Scale 4-6) Albuterol Sulfate (Albuterol Sulfate 90 Mcg 8 Gm Inhaler) 2 puff INHALE Q6H PRN PRN Reason: wheezing Amiodarone HCl (Amiodarone Hcl 200 Mg Tablet) 400 mg PO DAILY [facility] Last Admin: 06/29/23 08:27 Dose: 400 mg Documented By: SVETA Apixaban (Apixaban 5 Mg Tablet) 5 mg PO BID [facility] Last Admin: 06/29/23 08:28 Dose: 5 mg Documented By: SVETA Cyanocobalamin (Cyanocobalamin (Vitamin B-12) 1,000 Mcg/Ml Vial) 1,000 mcg IM Q30D [facility] Dextrose (Dextrose 50 % 25 Gm/50 Ml Syringe) 25 gm IVPUSH Q15M PRN; Protocol PRN Reason: per Hypoglycemia Standing Ord. Fluticasone/Umeclidinium/Vilanterol (Fluticasone/Umeclidinium/Vilanterol 200/62.5/25 Blst.W.Dev) 1 puff INHALE DAILY [facility] Last Admin: 06/29/23 08:01 Dose: 1 puff Documented By: HARRY Gabapentin (Gabapentin 100 Mg Capsule) 100 mg PO TID [facility] Last Admin: 06/29/23 08:28 Dose: 100 mg Documented By: SVETA Glucose (Glucose Gel 15 Gm Gel..Gram.) 15 gm PO Q15M PRN; Protocol PRN Reason: per Hypoglycemia Standing Ord. Ceftriaxone Sodium 1 gm/ (Sodium Chloride) 50 mls @ 100 mls/hr IV Q24H [facility] Last Infusion: 06/28/23 23:21 Dose: 0 mls/hr Documented By: JANICE Insulin Glargine (Insulin Glargine,Hum.Rec.Anlog 100 Unit/Ml 10 Ml Vial) 15 unit SUBCUT BEDTIME [facility] Last Admin: 06/28/23 23:31 Dose: Not Given Documented By: JANICE Non-Admin Reason: pt not eating, MD aware Insulin Human Lispro (Insulin Lispro 100 Unit/Ml 3 Ml Vial) 0 unit SUBCUT Q6H [facility]; Protocol Last Admin: 06/29/23 05:27 Dose: Not Given Documented By: JANICE Non-Admin Reason: pt not eating, MD aware Lactulose (Lactulose 20 Gm/30 Ml Solution) 30 gm PO BID [facility] Last Admin: 06/29/23 08:26 Dose: 30 gm Documented By: SVETA Melatonin (Melatonin 3 Mg Tablet) 6 mg PO BEDTIME PRN PRN Reason: Insomnia Midodrine (Midodrine Hcl 5 Mg Tablet) 5 mg PO BID@0600,1800 [facility] Last Admin: 06/29/23 06:18 Dose: 5 mg Documented By: JANICE Omeprazole (Omeprazole 20 Mg Capsule.Dr) 20 mg PO BID@0630,1630 [facility] Last Admin: 06/29/23 06:18 Dose: 20 mg Documented By: JANICE Ondansetron HCl (Ondansetron Hcl 4 Mg/2 Ml Vial) 4 mg IVPUSH Q8H PRN PRN Reason: Nausea and Vomiting Last Admin: 06/28/23 07:45 Dose: 4 mg Documented By: REBECCA Ondansetron HCl (Ondansetron Odt 4 Mg Tab.Rapdis) 8 mg TRANSLINGU TID [facility] Last Admin: 06/29/23 08:28 Dose: 8 mg Documented By: SVETA Oxycodone HCl (Oxycodone Hcl Immed Release 5 Mg Tablet) 5 mg PO Q8H PRN PRN Reason: Pain, Moderate(Pain Scale 4-6) Polyethylene Glycol (Polyethylene Glycol 3350 17 Gm Powd.Pack) 17 gm PO DAILY [facility] Last Admin: 06/29/23 08:26 Dose: 17 gm Documented By: SVETA Potassium Chloride (Potassium Chloride Er 20 Meq Tab.Er.Prt) 20 meq PO DAILY [facility] Last Admin: 06/29/23 08:27 Dose: 20 meq Documented By: SVETA Sertraline HCl (Sertraline Hcl 100 Mg Tablet) 100 mg PO DAILY [facility] Last Admin: 06/29/23 08:28 Dose: 100 mg Documented By: SVETA Sodium Chloride (0.9 % Sodium Chloride Flush 3 Ml Syringe) 3 ml IVFLUSH QSHIFT [facility] Last Admin: 06/29/23 08:28 Dose: 3 ml Documented By: SVETA Spironolactone (Spironolactone 25 Mg Tablet) 100 mg PO BEDTIME [facility]; Protocol Last Admin: 06/28/23 20:06 Dose: 100 mg Documented By: JANICE Torsemide (Torsemide 20 Mg Tablet) 100 mg PO DAILY [facility]; Protocol Last Admin: 06/29/23 08:27 Dose: 100 mg Documented By: SVETA Trolamine Salicylate (Trolamine Salicylate 10 % Cream 85 Gm Tube) 1 appl TOPICAL BID [facility] Last Admin: 06/29/23 08:46 Dose: 1 appl Documented By: SVETA Labs 06/28/23 05:07 06/28/23 05:07 Labs: Laboratory Results - last 24 hr 06/28/23 06/28/23 06/28/23 11:47 16:10 22:17 POC Glucose 156 H 142 H 168 H 06/29/23 04:00 POC Glucose 172 H Microbiology Microbiology Results: Microbiology 06/27/23 20:40 Blood Culture - Preliminary Blood - Venous No growth after 24 hours. 06/27/23 20:41 Blood Culture - Preliminary Blood - Venous No growth after 24 hours. 06/27/23 20:41 Urine Culture - Preliminary Urine clean catch - Urine titus top Culture in progress. Assessment and Plan (1) Acute metabolic encephalopathy: Status: Acute (2) Acute UTI: Status: Acute Plan This is a 73-year-old female with pertinent history of liver cirrhosis, congestive heart failure unspecified ejection fraction, insulin-dependent diabetes mellitus, mood disorder, AFib on Eliquis who was brought to the emergency department for evaluation of altered mentation. #.? Acute metabolic encephalopathy due to UTI and hepatic encephalopathy in a patient with liver cirrhosis.? more lucid today, check ammonia level, continue lactulose #> UTI--Ceftriaxone, culture pending #.? Elevated creatinine.? INGA versus CKD vs Hepatorenal syndrome.? Unclear baseline.? Continue to monitor and avoid nephrotoxins. Consult nephrology, follow labs today #.? HypOnatremia d/t cirrhosis.? fluid restriction and follow levels #.? Insulin-dependent diabetes mellitus with hyperglycemia.? basal plus insulin regimen #.? Liver cirrhosis, likely from fatty iver. Continue diuretics and lactulose as above #.? Paroxysmal atrial fibrillation on Eliquis.? Rate controlled in the ER.? continue amiodarone #.? Congestive heart failure, unspecified ejection fraction.? Continue home diuretics.? No decompensation during admission #.? Mood disorder.? Continue home mood stabilizers DVT prophylaxis: Eliquis DNR/DNI.? Discussed by Dr. Williamson with family at bedside Need for inaptient: IV Abx for UTI leading to metabolic encephalopathy Time Spent With Patient Time: Total time managing care of this patient today ____ minutes. Quality Stroke Does the patient have a stroke diagnosis?: No VTE Prior VTE?: No VTE Risk Level:: Medical - moderate - high VTE Device Contraindication: Treatment Not Indicated VTE Drug Contraindication: N/A - Med Ordered
[2023-06-29 09:19] LABS: Anion Gap 19 (12-20); Blood Urea Nitrogen 44 mg/dL (9-16); Calcium 9.1 mg/dL (8.4-10.2); Carbon Dioxide 22 mmol/L (22-29); Chloride 97 mmol/L (96-108); Creatinine Clr Calc Pharmacy 22.7; Estimated Glomerular Filt Rate 20; Glucose Random 180 mg/dL (60-115); Potassium 4.4 mmol/L (3.3-5.1); Sodium 134 mmol/L (135-145)
[2023-06-29 10:42] LABS: Glucose, Whole Blood 176 mg/dL (60-115)
[2023-06-29 11:34] LABS: Ammonia 65 umol/L (13-55)
--- NOTE | 2023-06-29 16:11 | MHC.CM.PN ---
Pt very lethargic and sleepy d/t medical condition. Call placed to pt's son Bo who states pt resides w/him but has been at [facility] for a [facility] weeks. Bo states pt has been in and out of hospitals/rehabs for over a year. Bo would like pt to return to [facility] when medically stable. Referral made. Will discuss w/pt once she is alert and verbal. IMM in chart, HCP on file, BLS transport will be needed. CM to follow.
[2023-06-29] MEDS: ondansetron HCL 4 MG/2 ML VIAL IVPUSH (16:51)
[2023-06-29] MEDS: oxyCODONE HCl Immed Release 5 MG TABLET PO (16:56)
[2023-06-29 19:26] VITALS: BP 105/44; PULSE 63; RESP 18; TEMP 36; O2SAT 100
[2023-06-29 21:10] LABS: Glucose, Whole Blood 176 mg/dL (60-115)
[2023-06-29] MEDS: cefTRIAXone sodium 1 GM in 0.9 % Sodium Chloride 50 ML IV (23:34)
[2023-06-30 04:00] VITALS: BP 109/47; PULSE 60; RESP 17; TEMP 36.4; O2SAT 94
[2023-06-30 04:52] LABS: Glucose, Whole Blood 158 mg/dL (60-115)
[2023-06-30 07:25] LABS: Anion Gap 14 (12-20); Blood Urea Nitrogen 47 mg/dL (9-16); Calcium 8.9 mg/dL (8.4-10.2); Carbon Dioxide 29 mmol/L (22-29); Chloride 98 mmol/L (96-108); Creatinine Clr Calc Pharmacy 19.8; Estimated Glomerular Filt Rate 17; Glucose Random 164 mg/dL (60-115); Potassium 4.1 mmol/L (3.3-5.1); Sodium 137 mmol/L (135-145)
[2023-06-30 07:29] VITALS: BP 109/51; PULSE 57; RESP 18; TEMP 36; O2SAT 100
[2023-06-30] MEDS: Fluticasone/Umeclidinium/Vilanterol 200/62.5/25 BLST.W.DEV 1 PUFF INHALE (07:56)
[2023-06-30 07:57] VITALS: PULSE 57; RESP 18; O2SAT 100
--- NOTE | 2023-06-30 08:06 | P.PNNP_ITS ---
Subjective Subjective Date of Service: 06/30/23 Interval history: F/u on INGA in pt with cirrhosis Interval history: becoming more alert but not taking much in po Physical Exam Vital Signs: Vital Signs: Last Vital Signs Temp 96.8 F 06/30/23 07:29 Pulse 57 06/30/23 07:57 Resp 18 06/30/23 07:57 BP 109/51 L 06/30/23 07:29 Pulse Ox 100 06/30/23 07:29 O2 Del Method Room Air 06/30/23 07:29 BMI result Body Mass Index 33.9 Const: Other: General: no distres Resp: CTA bilateral CVS: S1,S2,RRR GI: +BS, NT, no distention Skin: No rash Neuro: motor grossly intact Psych: appropriate affect General: cooperative, comfortable, no acute distress and lethargic Orie ntation/consciousness: lethargic HEENT: Other: PERRLA, no facial asymmetry; she is pale Neck: Other: ecchymosis right side of neck, no JVD Resp: Other: clear to auscultation without rales Cardio: Jugular venous distension: no JVD Rate: tachycardic Rhythm: abnormal rhythm Heart sounds: S1 normal heart sound present and S2 normal heart sound present GI: Other: abdomen obese Extrem: Other: Bilateral LE edema 1 plus pretib Psych: Other: pt is having a hard time answering questions, saying her name or responding; she is verbalizing but appears confused , encephalopathic, tremor in RUE Mental Status: other Objective Data Labs 06/28/23 05:07 06/30/23 05:39 Labs: Laboratory Results - last 24 hr 06/29/23 06/29/23 06/29/23 08:52 10:06 10:37 Sodium 134 L Potassium 4.4 Chloride 97 Carbon Dioxide 22 Anion Gap 19 BUN 44 H Creatinine 2.32 H Estim Creat Clear Calc 22.7 Estimated GFR 20 POC Glucose 176 H Random Glucose 180 H Calcium 9.1 Ammonia 65 H 06/29/23 06/30/23 06/30/23 21:06 04:47 05:39 Sodium 137 Potassium 4.1 Chloride 98 Carbon Dioxide 29 Anion Gap 14 BUN 47 H Creatinine 2.66 H Estim Creat Clear Calc 19.8 Estimated GFR 17 POC Glucose 176 H 158 H Random Glucose 164 H Calcium 8.9 Ammonia Microbiology Microbiology Results: Microbiology 06/27/23 20:41 Urine clean catch - Urine titus top Urine Culture - Preliminary Escherichia coli Enterococcus faecalis 06/27/23 20:40 Blood - Venous Blood Culture - Preliminary No growth after 48 hours. 06/27/23 20:41 Blood - Venous Blood Culture - Preliminary No growth after 48 hours. Procedures Date of Service Date of Service: 06/30/23 Assessment & Plan Assessment and plan (1) Acute kidney injury: Status: Acute Assessment and Plan: Pt has INGA in the setting of cirrhosis on diuretics with poor po intake; SHE IS VOL DEPLETED; PLEASE STOP ALL DIURETICS; START LR AT 100/HR AND GIVE ALBUMIN Q 6 HRS FOR 3 DAYS (2) Cirrhosis: Status: Acute (3) Hyponatremia: Status: Acute Assessment and Plan: dUUE TO VOL DEPLETION; STOP DIURETICS PLEASE Plan hYPOVOLEMIC STOP DIURETICS PLEASE START LR AT 100/HR START ALBUMIN Q 6 HRS Time Spent With Patient Time: Total time managing care of this patient today ____ minutes. Progress Note: Quality Stroke Does the patient have a stroke diagnosis?: No
--- NOTE | 2023-06-30 09:28 | P.PNIM_ITS ---
Subjective Subjective Date of Service: 06/30/23 Interval History: I feel better , renal function worse Physical Exam Vital Signs: Vital Signs: Last Vital Signs Temp 96.8 F 06/30/23 07:29 Pulse 57 06/30/23 07:57 Resp 18 06/30/23 07:57 BP 109/51 L 06/30/23 07:29 Pulse Ox 100 06/30/23 07:29 O2 Del Method Room Air 06/30/23 07:29 BMI result Body Mass Index 33.9 Const: Other: General: oriented to self and place Resp: CTA bilateral CVS: S1,S2,RRR GI: +BS, NT, no distention Skin: No rash Neuro: motor grossly intact Psych: appropriate affect Objective Data Active Medications Acetaminophen (Acetaminophen 325 Mg Tablet) 650 mg PO Q6H PRN PRN Reason: Pain, Mild (Pain Scale 1-3) Acetaminophen (Acetaminophen Supp 650 Mg Supp.Rect) 650 mg ND Q6H PRN PRN Reason: Pain, Mild (Pain Scale 1-3) Acetaminophen (Acetaminophen 325 Mg Tablet) 325 mg PO Q8H PRN PRN Reason: Pain, Moderate(Pain Scale 4-6) Albuterol Sulfate (Albuterol Sulfate 90 Mcg 8 Gm Inhaler) 2 puff INHALE Q6H PRN PRN Reason: wheezing Amiodarone HCl (Amiodarone Hcl 200 Mg Tablet) 400 mg PO DAILY [facility] Last Admin: 06/29/23 08:27 Dose: 400 mg Documented By: SVETA Apixaban (Apixaban 5 Mg Tablet) 5 mg PO BID [facility] Last Admin: 06/29/23 20:07 Dose: Not Given Documented By: JANICE Non-Admin Reason: Nausea Cyanocobalamin (Cyanocobalamin (Vitamin B-12) 1,000 Mcg/Ml Vial) 1,000 mcg IM Q30D [facility] Dextrose (Dextrose 50 % 25 Gm/50 Ml Syringe) 25 gm IVPUSH Q15M PRN; Protocol PRN Reason: per Hypoglycemia Standing Ord. Fluticasone/Umeclidinium/Vilanterol (Fluticasone/Umeclidinium/Vilanterol 200/62.5/25 Blst.W.Dev) 1 puff INHALE DAILY [facility] Last Admin: 06/30/23 07:56 Dose: 1 puff Documented By: HARRY Gabapentin (Gabapentin 100 Mg Capsule) 100 mg PO TID [facility] Last Admin: 06/29/23 20:07 Dose: Not Given Documented By: JANICE Non-Admin Reason: Nausea Glucose (Glucose Gel 15 Gm Gel..Gram.) 15 gm PO Q15M PRN; Protocol PRN Reason: per Hypoglycemia Standing Ord. Ceftriaxone Sodium 1 gm/ (Sodium Chloride) 50 mls @ 100 mls/hr IV Q24H [facility] Last Infusion: 06/30/23 01:05 Dose: 0 mls/hr Documented By: JANICE Insulin Glargine (Insulin Glargine,Hum.Rec.Anlog 100 Unit/Ml 10 Ml Vial) 15 unit SUBCUT BEDTIME [facility] Last Admin: 06/29/23 21:34 Dose: Not Given Documented By: JANICE Non-Admin Reason: pt not eating, MD aware Insulin Human Lispro (Insulin Lispro 100 Unit/Ml 3 Ml Vial) 0 unit SUBCUT Q6H [facility]; Protocol Last Admin: 06/30/23 04:54 Dose: Not Given Documented By: JANICE Non-Admin Reason: pt not eating, MD aware Lactulose (Lactulose 20 Gm/30 Ml Solution) 30 gm PO BID [facility] Last Admin: 06/29/23 20:18 Dose: Not Given Documented By: JANICE Non-Admin Reason: Nausea Melatonin (Melatonin 3 Mg Tablet) 6 mg PO BEDTIME PRN PRN Reason: Insomnia Midodrine (Midodrine Hcl 5 Mg Tablet) 5 mg PO BID@0600,1800 [facility] Last Admin: 06/30/23 06:26 Dose: Not Given Documented By: JANICE Non-Admin Reason: Patient Refused Omeprazole (Omeprazole 20 Mg Capsule.) 20 mg PO BID@0630,1630 [facility] Last Admin: 06/30/23 06:26 Dose: Not Given Documented By: JANICE Non-Admin Reason: Patient Refused Ondansetron HCl (Ondansetron Hcl 4 Mg/2 Ml Vial) 4 mg IVPUSH Q8H PRN PRN Reason: Nausea and Vomiting Last Admin: 06/29/23 16:51 Dose: 4 mg Documented By: SVETA Ondansetron HCl (Ondansetron Odt 4 Mg Tab.Rapdis) 8 mg TRANSLINGU TID [facility] Last Admin: 06/29/23 20:03 Dose: 8 mg Documented By: JANICE Comments: pt only took 1 tab due to n/v Oxycodone HCl (Oxycodone Hcl Immed Release 5 Mg Tablet) 5 mg PO Q8H PRN PRN Reason: Pain, Moderate(Pain Scale 4-6) Last Admin: 06/29/23 16:56 Dose: 5 mg Documented By: SVETA Polyethylene Glycol (Polyethylene Glycol 3350 17 Gm Powd.Pack) 17 gm PO DAILY [facility] Last Admin: 06/29/23 08:26 Dose: 17 gm Documented By: SVETA Potassium Chloride (Potassium Chloride Er 20 Meq Tab.Er.Prt) 20 meq PO DAILY [facility] Last Admin: 06/29/23 08:27 Dose: 20 meq Documented By: SVETA Sertraline HCl (Sertraline Hcl 100 Mg Tablet) 100 mg PO DAILY [facility] Last Admin: 06/29/23 08:28 Dose: 100 mg Documented By: SVETA Sodium Chloride (0.9 % Sodium Chloride Flush 3 Ml Syringe) 3 ml IVFLUSH QSHIFT [facility] Last Admin: 06/29/23 19:49 Dose: 3 ml Documented By: JANICE Spironolactone (Spironolactone 25 Mg Tablet) 100 mg PO BEDTIME [facility]; Protocol Last Admin: 06/29/23 20:08 Dose: Not Given Documented By: JANICE Non-Admin Reason: Nausea Torsemide (Torsemide 20 Mg Tablet) 100 mg PO DAILY [facility]; Protocol Last Admin: 06/29/23 08:27 Dose: 100 mg Documented By: SVETA Trolamine Salicylate (Trolamine Salicylate 10 % Cream 85 Gm Tube) 1 appl TOPICAL BID [facility] Last Admin: 06/29/23 20:09 Dose: 1 appl Documented By: JANICE Labs 06/28/23 05:07 06/30/23 05:39 Labs: Laboratory Results - last 24 hr 06/29/23 06/29/23 06/29/23 10:06 10:37 21:06 Anion Gap Estim Creat Clear Calc Estimated GFR POC Glucose 176 H 176 H Random Glucose Calcium Ammonia 65 H 06/30/23 06/30/23 04:47 05:39 Anion Gap 14 Estim Creat Clear Calc 19.8 Estimated GFR 17 POC Glucose 158 H Random Glucose 164 H Calcium 8.9 Ammonia Microbiology Microbiology Results: Microbiology 06/27/23 20:41 Urine Culture - Preliminary Urine clean catch - Urine titus top Escherichia coli Enterococcus faecalis 06/27/23 20:40 Blood Culture - Preliminary Blood - Venous No growth after 48 hours. 06/27/23 20:41 Blood Culture - Preliminary Blood - Venous No growth after 48 hours. Assessment and Plan (1) Acute metabolic encephalopathy: Status: Acute (2) Acute UTI: Status: Acute Plan This is a 73-year-old female with pertinent history of liver cirrhosis, congestive heart failure unspecified ejection fraction, insulin-dependent diabetes mellitus, mood disorder, AFib on Eliquis who was brought to the emergency department for evaluation of altered mentation. #.? Acute metabolic encephalopathy due to UTI and hepatic encephalopathy in a patient with liver cirrhosis.? more lucid today, ammonia trending down #> UTI--Ceftriaxone, showing E.coli and E. Feacalis--sejsitivity pending #.? INGA versus CKD vs Hepatorenal syndrome.? Unclear baseline.? Cr worse. Nephro recommends stopping all diuretics, starting LR 100/hr, albumin daily x 3 days #.? HypOnatremia d/t cirrhosis.? fluid restriction and follow levels, resolved. #.? Insulin-dependent diabetes mellitus with hyperglycemia.? basal plus insulin regimen #.? Liver cirrhosis, likely from fatty iver. Continue diuretics and lactulose as above #.? Paroxysmal atrial fibrillation on Eliquis.? Rate controlled in the ER.? continue amiodarone #.? Congestive heart failure, unspecified ejection fraction.? Continue home diuretics.? No decompensation during admission #.? Mood disorder.? Continue home mood stabilizers DVT prophylaxis: Eliquis DNR/DNI.? Discussed by Dr. Williamson with family at bedside Need for inaptient: IV Abx for UTI leading to metabolic encephalopathy Time Spent With Patient Time: Total time managing care of this patient today ____ minutes. Quality Stroke Does the patient have a stroke diagnosis?: No VTE Prior VTE?: No VTE Risk Level:: Medical - moderate - high VTE Device Contraindication: Treatment Not Indicated VTE Drug Contraindication: N/A - Med Ordered
[2023-06-30] MEDS: Lactulose 20 GM/30 ML SOLUTION 30 GM PO ×2 (10:08→19:43)
[2023-06-30] MEDS: polyethylene glycoL 3350 17 GM POWD.PACK PO (10:09)
[2023-06-30] MEDS: Sertraline HCL 100 MG TABLET PO (10:10)
[2023-06-30] MEDS: 0.9 % Sodium Chloride Flush 3 ML SYRINGE IVFLUSH (10:11)
[2023-06-30] MEDS: Potassium Chloride ER 20 MEQ TAB.ER.PRT PO (10:11)
[2023-06-30] MEDS: Ondansetron ODT 4 MG TAB.RAPDIS 8 MG TRANSLINGU ×2 (10:11→19:45)
[2023-06-30] MEDS: Amiodarone HCL 200 MG TABLET 400 MG PO (10:11)
[2023-06-30] MEDS: Apixaban 5 MG TABLET PO ×2 (10:11→19:45)
[2023-06-30] MEDS: Gabapentin 100 MG CAPSULE PO ×2 (10:11→19:43)
[2023-06-30] MEDS: Albumin Human 25 % 100 ML 133.33 ML IV (10:12)
[2023-06-30] MEDS: Trolamine Salicylate 10 % Cream 85 GM TUBE 1 APPL TOPICAL ×2 (10:12→19:46)
[2023-06-30] MEDS: Lactated Ringers 1,000 ML 100 ML IVCONT ×2 (10:44→23:05)
[2023-06-30 11:54] LABS: Glucose, Whole Blood 225 mg/dL (60-115)
[2023-06-30] MEDS: Insulin Lispro 100 UNIT/ML 3 ML VIAL SUBCUT (14:12)
[2023-06-30 15:30] VITALS: BP 118/56; PULSE 61; RESP 17; TEMP 36.2; O2SAT 100
[2023-06-30] MEDS: ondansetron HCL 4 MG/2 ML VIAL IVPUSH (15:43)
[2023-06-30] MEDS: oxyCODONE HCl Immed Release 5 MG TABLET PO (15:43)
--- NOTE | 2023-06-30 15:47 | MHC.CM.PN ---
CM MET WITH PTS SON AND DAUGHTER IN LAW AT THEIR REQUEST THEY ARE INTERESTED IN A HOSPICE/PALLIATIVE CONSULT THEY ARE AWARE A REFERRAL WILL BE MADE THEY REPORT THE PT HAS BEEN IN AND OUT OF REHABS AND HOSPITALS OVER THE LAST YEAR THEY STATE SHE DID NOT REALLY LIKE THE LAST ONE AND WOULD LIKE TO GO ELSEWHERE AT [place] [facility] EXPLAINED SHE MAY NOT HAVE MANY MEDICARE DAYS LEFT [facility] ALSO EXPLAINED [facility] WILL NOT PAY FOR HOSPICE IN A SNF PER DISCUSSION, A REFERRAL WAS MADE TO [facility] FOR A [employer] APPLICATION CM MESSAGED [facility] REQUESTING THE NUMBER OF MCR DAYS USED BY PT WELL CURRENTLY, DCP IS RETURN TO [facility] VS A DIFFERENT SNF VIA BLS PT IS UNABLE TO RETURN HOME AT THIS TIME [facility] TO BE STARTED IN THE EVENT PT IS RUNNING OUT OF MCR DAYS
[2023-06-30 16:12] LABS: Glucose, Whole Blood 161 mg/dL (60-115)
[2023-06-30 19:22] VITALS: BP 119/56; PULSE 66; RESP 17; TEMP 36.3; O2SAT 100
[2023-06-30 21:11] LABS: Glucose, Whole Blood 172 mg/dL (60-115)
[2023-06-30] MEDS: Insulin Glargine,Hum.rec.anlog 100 UNIT/ML 10 ML VIAL 15 UNIT SUBCUT (21:43)
[2023-06-30] MEDS: cefTRIAXone sodium 1 GM in 0.9 % Sodium Chloride 50 ML IV (21:44)
[2023-06-30 23:55] LABS: Glucose, Whole Blood 179 mg/dL (60-115)
[2023-07-01] MEDS: Insulin Lispro 100 UNIT/ML 3 ML VIAL SUBCUT ×3 (00:04→17:18)
--- NOTE | 2023-07-01 00:27 | PC.NURSE ---
POC at 2100 172, pt still has poor po intake, Dr. Williamson was notified and said okay to give Lantus schedule med.
[2023-07-01] MEDS: oxyCODONE HCl Immed Release 5 MG TABLET PO ×2 (01:11→13:07)
[2023-07-01] MEDS: Acetaminophen 325 MG TABLET PO (01:14)
[2023-07-01 02:56] VITALS: BP 118/53; PULSE 62; RESP 16; TEMP 36.2; O2SAT 100
[2023-07-01 05:40] LABS: Glucose, Whole Blood 149 mg/dL (60-115)
[2023-07-01] MEDS: Midodrine HCl 5 MG TABLET PO ×2 (05:46→17:18)
[2023-07-01] MEDS: Omeprazole 20 MG CAPSULE.DR PO ×2 (05:46→15:34)
[2023-07-01 05:55] VITALS: BP 90/42; PULSE 58
[2023-07-01 06:50] LABS: Anion Gap 15 (12-20); Blood Urea Nitrogen 46 mg/dL (9-16); Carbon Dioxide 26 mmol/L (22-29); Chloride 100 mmol/L (96-108); Estimated Glomerular Filt Rate 18; Glucose Random 174 mg/dL (60-115); Potassium 3.8 mmol/L (3.3-5.1); Sodium 137 mmol/L (135-145)
[2023-07-01] MEDS: Fluticasone/Umeclidinium/Vilanterol 200/62.5/25 BLST.W.DEV 1 PUFF INHALE (07:49)
[2023-07-01 07:50] VITALS: PULSE 62; RESP 18; O2SAT 97
[2023-07-01 07:57] VITALS: BP 115/54; PULSE 59; RESP 18; TEMP 36.2; O2SAT 100
[2023-07-01 07:57] LABS: Glucose, Whole Blood 149 mg/dL (60-115)
[2023-07-01] MEDS: polyethylene glycoL 3350 17 GM POWD.PACK PO (08:36)
[2023-07-01] MEDS: Sertraline HCL 100 MG TABLET PO (08:37)
[2023-07-01] MEDS: Ondansetron ODT 4 MG TAB.RAPDIS 8 MG TRANSLINGU ×3 (08:37→20:12)
[2023-07-01] MEDS: Potassium Chloride ER 20 MEQ TAB.ER.PRT PO (08:37)
[2023-07-01] MEDS: Amiodarone HCL 200 MG TABLET 400 MG PO (08:37)
[2023-07-01] MEDS: Apixaban 5 MG TABLET PO ×2 (08:37→20:12)
[2023-07-01] MEDS: Lactulose 20 GM/30 ML SOLUTION 30 GM PO ×2 (08:37→20:19)
[2023-07-01] MEDS: Albumin Human 25 % 100 ML 133.33 ML IV (09:01)
[2023-07-01] MEDS: 0.9 % Sodium Chloride Flush 3 ML SYRINGE IVFLUSH ×3 (09:01→23:00)
[2023-07-01] MEDS: Gabapentin 100 MG CAPSULE PO ×3 (09:05→20:12)
[2023-07-01] MEDS: Cyanocobalamin (Vitamin B-12) 1,000 MCG/ML VIAL 1000 MCG IM (09:13)
[2023-07-01] MEDS: Acetaminophen 325 MG TABLET 650 MG PO (09:19)
[2023-07-01] MEDS: Trolamine Salicylate 10 % Cream 85 GM TUBE 1 APPL TOPICAL ×2 (09:19→20:23)
--- NOTE | 2023-07-01 09:48 | HO.PM.IMPN ---
Subjective Subjective Date of Service: 07/01/23 Interval History: F/u hepatic encephalopathy, inga, UTI interval history: more lucid but renal function getting worse, Physical Exam Vital Signs: Vital Signs: Last Vital Signs Temp 97.1 F 07/01/23 07:57 Pulse 59 07/01/23 07:57 Resp 18 07/01/23 07:57 BP 115/54 L 07/01/23 07:57 Pulse Ox 100 07/01/23 07:57 O2 Del Method Room Air 07/01/23 07:57 BMI result Body Mass Index 33.9 Const: Other: General: oriented to self and place Resp: CTA bilateral CVS: S1,S2,RRR GI: +BS, NT, no distention Skin: No rash Neuro: motor grossly intact Psych: appropriate affect Objective Data Active Medications Acetaminophen (Acetaminophen 325 Mg Tablet) 650 mg PO Q6H PRN PRN Reason: Pain, Mild (Pain Scale 1-3) Last Admin: 07/01/23 09:19 Dose: 650 mg Documented By: RUSSELL Acetaminophen (Acetaminophen 325 Mg Tablet) 325 mg PO Q8H PRN PRN Reason: Pain, Moderate(Pain Scale 4-6) Last Admin: 07/01/23 01:14 Dose: 325 mg Documented By: CASTILNawaf Albuterol Sulfate (Albuterol Sulfate 90 Mcg 8 Gm Inhaler) 2 puff INHALE Q6H PRN PRN Reason: wheezing Amiodarone HCl (Amiodarone Hcl 200 Mg Tablet) 400 mg PO DAILY [facility] Last Admin: 07/01/23 08:37 Dose: 400 mg Documented By: RUSSELL Apixaban (Apixaban 5 Mg Tablet) 5 mg PO BID [facility] Last Admin: 07/01/23 08:37 Dose: 5 mg Documented By: RUSSELL Cyanocobalamin (Cyanocobalamin (Vitamin B-12) 1,000 Mcg/Ml Vial) 1,000 mcg IM Q30D [facility] Last Admin: 07/01/23 09:13 Dose: 1,000 mcg Documented By: RUSSELL Dextrose (Dextrose 50 % 25 Gm/50 Ml Syringe) 25 gm IVPUSH Q15M PRN; Protocol PRN Reason: per Hypoglycemia Standing Ord. Fluticasone/Umeclidinium/Vilanterol (Fluticasone/Umeclidinium/Vilanterol 200/62.5/25 Blst.W.Dev) 1 puff INHALE DAILY [facility] Last Admin: 07/01/23 07:49 Dose: 1 puff Documented By: CAREY Gabapentin (Gabapentin 100 Mg Capsule) 100 mg PO TID [facility] Last Admin: 07/01/23 09:05 Dose: 100 mg Documented By: RUSSELL Glucose (Glucose Gel 15 Gm Gel..Gram.) 15 gm PO Q15M PRN; Protocol PRN Reason: per Hypoglycemia Standing Ord. Ceftriaxone Sodium 1 gm/ (Sodium Chloride) 50 mls @ 100 mls/hr IV Q24H [facility] Last Infusion: 06/30/23 22:30 Dose: 0 mls/hr Documented By: ELENA Lactated Ringer's (Lr) 1,000 mls @ 100 mls/hr IVCONT .Q10H [facility] Last Admin: 07/01/23 05:56 Dose: Not Given Documented By: ELENA Non-Admin Reason: IV Running Albumin Human (Kedbumin 25 %) 100 mls @ 133.333 mls/hr IV DAILY [facility] Stop: 07/02/23 09:44 Last Admin: 07/01/23 09:01 Dose: 133.33 mls/hr Documented By: RUSSELL Promethazine HCl 12.5 mg/ (Sodium Chloride) 50.5 mls @ 202 mls/hr IV Q6H PRN PRN Reason: Nausea and Vomiting Last Infusion: 06/30/23 18:36 Dose: 0 mls/hr Documented By: SVETA Insulin Glargine (Insulin Glargine,Hum.Rec.Anlog 100 Unit/Ml 10 Ml Vial) 15 unit SUBCUT BEDTIME [facility] Last Admin: 06/30/23 21:43 Dose: 15 unit Documented By: ELENA Insulin Human Lispro (Insulin Lispro 100 Unit/Ml 3 Ml Vial) 0 unit SUBCUT Q6H [facility]; Protocol Last Admin: 07/01/23 05:41 Dose: Not Given Documented By: ELENA Non-Admin Reason: No Insulin Coverage Comments: BWX=129 Lactulose (Lactulose 20 Gm/30 Ml Solution) 30 gm PO BID [facility] Last Admin: 07/01/23 08:37 Dose: 30 gm Documented By: RUSSELL Melatonin (Melatonin 3 Mg Tablet) 6 mg PO BEDTIME PRN PRN Reason: Insomnia Midodrine (Midodrine Hcl 5 Mg Tablet) 5 mg PO BID@0600,1800 [facility] Last Admin: 07/01/23 05:46 Dose: 5 mg Documented By: ELENA Comments: BP=90/42 H 58 Omeprazole (Omeprazole 20 Mg Capsule.Dr) 20 mg PO BID@0630,1630 [facility] Last Admin: 07/01/23 05:46 Dose: 20 mg Documented By: ELENA Ondansetron HCl (Ondansetron Hcl 4 Mg/2 Ml Vial) 4 mg IVPUSH Q8H PRN PRN Reason: Nausea and Vomiting Last Admin: 06/30/23 15:43 Dose: 4 mg Documented By: SVETA Ondansetron HCl (Ondansetron Odt 4 Mg Tab.Rapdis) 8 mg TRANSLINGU TID [facility] Last Admin: 07/01/23 08:37 Dose: 8 mg Documented By: RUSSELL Oxycodone HCl (Oxycodone Hcl Immed Release 5 Mg Tablet) 5 mg PO Q8H PRN PRN Reason: Pain, Moderate(Pain Scale 4-6) Last Admin: 07/01/23 01:11 Dose: 5 mg Documented By: ELENA Polyethylene Glycol (Polyethylene Glycol 3350 17 Gm Powd.Pack) 17 gm PO DAILY [facility] Last Admin: 07/01/23 08:36 Dose: 17 gm Documented By: RUSSELL Potassium Chloride (Potassium Chloride Er 20 Meq Tab.Er.Prt) 20 meq PO DAILY [facility] Last Admin: 07/01/23 08:37 Dose: 20 meq Documented By: RUSSELL Sertraline HCl (Sertraline Hcl 100 Mg Tablet) 100 mg PO DAILY [facility] Last Admin: 07/01/23 08:37 Dose: 100 mg Documented By: RUSSELL Sodium Chloride (0.9 % Sodium Chloride Flush 3 Ml Syringe) 3 ml IVFLUSH QSHIFT [facility] Last Admin: 07/01/23 09:01 Dose: 3 ml Documented By: RUSSELL Trolamine Salicylate (Trolamine Salicylate 10 % Cream 85 Gm Tube) 1 appl TOPICAL BID [facility] Last Admin: 07/01/23 09:19 Dose: 1 appl Documented By: RUSSELL Labs 06/28/23 05:07 07/01/23 06:03 Labs: Laboratory Results - last 24 hr 06/30/23 06/30/23 06/30/23 11:43 16:07 21:03 Anion Gap Estim Creat Clear Calc Estimated GFR POC Glucose 225 H 161 H 172 H Random Glucose Calcium 06/30/23 07/01/23 07/01/23 23:52 05:35 06:03 Anion Gap 15 Estim Creat Clear Calc 20.0 Estimated GFR 18 POC Glucose 179 H 149 H Random Glucose 174 H Calcium 9.0 07/01/23 07:29 Anion Gap Estim Creat Clear Calc Estimated GFR POC Glucose 149 H Random Glucose Calcium Microbiology Microbiology Results: Microbiology 06/27/23 20:41 Urine Culture - Final Urine clean catch - Urine titus top Escherichia coli Enterococcus faecalis Assessment and Plan (1) Acute metabolic encephalopathy: Status: Acute (2) Acute UTI: Status: Acute Plan This is a 73-year-old female with pertinent history of liver cirrhosis, congestive heart failure unspecified ejection fraction, insulin-dependent diabetes mellitus, mood disorder, AFib on Eliquis who was brought to the emergency department for evaluation of altered mentation. #.? Acute metabolic encephalopathy due to UTI and hepatic encephalopathy in a patient with liver cirrhosis.? more lucid today, ammonia trending down #> UTI--Ceftriaxone for E. coli and amoxicillin for E. Faecalis #.? INGA versus CKD vs Hepatorenal syndrome.? Unclear baseline.? Cr worse today. Nephro recommends stopping all diuretics, continue LR 100/hr, albumin daily x 3 days #.? HypOnatremia d/t cirrhosis.? fluid restriction and follow levels, resolved. #.? Insulin-dependent diabetes mellitus with hyperglycemia.? basal plus insulin regimen #.? Liver cirrhosis, likely from fatty iver. Continue diuretics and lactulose as above #.? Paroxysmal atrial fibrillation on Eliquis.? Rate controlled in the ER.? continue amiodarone #.? Congestive heart failure, unspecified ejection fraction.? Continue home diuretics.? No decompensation during admission #.? Mood disorder.? Continue home mood stabilizers DVT prophylaxis: Eliquis DNR/DNI.? Discussed by Dr. Williamson with family at bedside Need for inaptient: IV Abx for UTI leading to metabolic encephalopathy Overall prognosis is poor, daugher requesting hospice intake Time Spent With Patient Time: Total time managing care of this patient today ____ minutes. Quality Stroke Does the patient have a stroke diagnosis?: No VTE Prior VTE?: No VTE Risk Level:: Medical - moderate - high VTE Device Contraindication: Treatment Not Indicated VTE Drug Contraindication: N/A - Med Ordered
[2023-07-01] MEDS: Lactated Ringers 1,000 ML 100 ML IVCONT ×2 (09:53→23:30)
[2023-07-01] MEDS: Amoxicillin 500 MG CAPSULE PO ×2 (10:52→20:12)
[2023-07-01 11:26] LABS: Glucose, Whole Blood 212 mg/dL (60-115)
[2023-07-01 12:44] VITALS: BMI 33.9
--- NOTE | 2023-07-01 13:42 | MHC.CM.PN ---
Addendum entered by Carisa Mayer 07/01/23 15:20: MET WITH PT AND SON DANGELO AT BEDSIDE. SON WILL BRING IN COPY OF HCP AND IS AWARE THIS CM HAS SENT A REQUEST TO TO START MH APPLICATION WITH HIM PT IS UNABLE TO GO HOME AND WILL NEED HOSPICE IN A FACILITY. CM CONTINUES TO FOLLOW. Original Note: PER [facility], THEY ARE REACHING OUT TO THE SON TO SET UP HOSPICE INTAKE MEETING. CM WILL CONTINUE TO FOLLOW
--- NOTE | 2023-07-01 16:07 | MHC.SL.SWA ---
Risk of Aspiration Due to: Lethargy Dysphasia Diet Status: UPGRADE solids Liquid Consistency and Strategies for Safe Swallow: Liquid Intake Recommendation: Thin Liquid Intake Strategies: Small Sips Unrestricted Solid Food Consistency: Dietary Recommendations: Grnd/Mech Altered (NDD2) Oral Medication Intake: whole with Puree Please contact the pharmacy regarding appropriate crushable or liquid drug formulations that are available whenever modified delivery is recommended. Compensatory Strategies and Precautions to be Taken for Safe Swallow: Sitting Upright (90 deg) Small Bites and Sips Alternate Liquids/Solids Rate of Ingestion Change Oral Check Avoid Specific Foods Supervision While Eating and Drinking for Safe Swallow: Total Assistance (1:1) Foods to Avoid: Avoid sticky and tough to chew foods Swallowing Recommended Treatments: Compens. Strategy Educat. Recommendation for Speech: Speech Therapy through Rehab Facility Recommend UPGRADE to GROUND/MECH ALTERED solids (NDD2). Continue w/ THIN liquids. Recommend pills WHOLE in PUREE. If administered whole w/ liquid, recommend 1 pill at a time. Dealership General Manager Clinican/Clinical Fellow: No Supervisory Statement: I have reviewed and agree with the student/clinical fellow's documentation: N/A Speech Language Pathologist: Annetta Brand M.A., CCC-[employer]
[2023-07-01 16:10] LABS: Glucose, Whole Blood 181 mg/dL (60-115)
[2023-07-01 17:15] VITALS: BP 102/50; PULSE 61; RESP 20; TEMP 36.3; O2SAT 100
[2023-07-01 19:56] VITALS: BP 124/57; PULSE 58; RESP 18; TEMP 36; O2SAT 98
[2023-07-01 20:12] LABS: Glucose, Whole Blood 152 mg/dL (60-115)
[2023-07-01] MEDS: cefTRIAXone sodium 1 GM in 0.9 % Sodium Chloride 50 ML IV (22:56)
[2023-07-02 04:00] VITALS: BP 99/47; PULSE 60; RESP 16; TEMP 36.3; O2SAT 98
[2023-07-02 04:57] VITALS: BP 128/58
[2023-07-02] MEDS: oxyCODONE HCl Immed Release 5 MG TABLET PO ×2 (05:01→12:58)
[2023-07-02] MEDS: Midodrine HCl 5 MG TABLET PO ×2 (05:53→17:21)
[2023-07-02] MEDS: Omeprazole 20 MG CAPSULE.DR PO ×2 (05:53→15:20)
[2023-07-02 06:07] LABS: Glucose, Whole Blood 143 mg/dL (60-115)
[2023-07-02 07:13] VITALS: BP 156/48; PULSE 60; RESP 18; TEMP 36.2; O2SAT 99
[2023-07-02 07:53] LABS: Glucose, Whole Blood 147 mg/dL (60-115)
[2023-07-02] MEDS: Fluticasone/Umeclidinium/Vilanterol 200/62.5/25 BLST.W.DEV 1 PUFF INHALE (08:13)
[2023-07-02 08:14] VITALS: PULSE 75; RESP 16; O2SAT 97
[2023-07-02] MEDS: Ondansetron ODT 4 MG TAB.RAPDIS 8 MG TRANSLINGU ×3 (08:16→20:52)
[2023-07-02] MEDS: Amoxicillin 500 MG CAPSULE PO ×2 (08:16→20:52)
[2023-07-02] MEDS: Amiodarone HCL 200 MG TABLET 400 MG PO (08:16)
[2023-07-02] MEDS: Sertraline HCL 100 MG TABLET PO (08:16)
[2023-07-02] MEDS: Apixaban 5 MG TABLET PO ×2 (08:16→20:52)
[2023-07-02] MEDS: Gabapentin 100 MG CAPSULE PO ×3 (08:16→20:53)
[2023-07-02] MEDS: Potassium Chloride ER 20 MEQ TAB.ER.PRT PO (08:16)
[2023-07-02] MEDS: Lactulose 20 GM/30 ML SOLUTION 30 GM PO ×2 (08:16→22:03)
[2023-07-02] MEDS: Acetaminophen 325 MG TABLET 650 MG PO ×2 (08:17→18:14)
[2023-07-02] MEDS: Albumin Human 25 % 100 ML 133.33 ML IV (08:23)
[2023-07-02] MEDS: 0.9 % Sodium Chloride Flush 3 ML SYRINGE IVFLUSH ×3 (08:24→20:50)
[2023-07-02] MEDS: Trolamine Salicylate 10 % Cream 85 GM TUBE 1 APPL TOPICAL ×2 (08:24→22:03)
[2023-07-02] MEDS: polyethylene glycoL 3350 17 GM POWD.PACK PO (08:24)
[2023-07-02 11:13] LABS: Glucose, Whole Blood 187 mg/dL (60-115)
--- NOTE | 2023-07-02 11:50 | HO.PM.IMPN ---
Subjective Subjective Date of Service: 07/02/23 Interval History: Complaining of bilateral leg pain with radiation down the legs, chronic denies recent fall or injury, tolerating diet, moving bowls,no nausea, no vomiting, no abdominal pain, denies headache, no urinary symptoms, no fevers, no chills no other acute issues overnight. Review of Systems All other system reviewed and negative. Physical Exam Vital Signs: Vital Signs: Last Vital Signs Temp 97.1 F 07/02/23 07:13 Pulse 75 07/02/23 08:14 Resp 16 07/02/23 08:14 BP 156/48 H 07/02/23 07:13 Pulse Ox 99 07/02/23 07:13 O2 Del Method Room Air 07/02/23 07:13 BMI result Body Mass Index 33.9 Const: Other: General: Awake alert in no acute distress answering questions appropriately Neck no JVD Resp:? CTA bilateral CVS: S1,S2,RRR GI: +BS, soft and, nontender, no distention Skin: No rash Extremities no edema, normal examination both legs Neuro:? motor grossly intact Psych: appropriate affect Objective Data Active Medications Acetaminophen (Acetaminophen 325 Mg Tablet) 650 mg PO Q6H PRN PRN Reason: Pain, Mild (Pain Scale 1-3) Last Admin: 07/02/23 08:17 Dose: 650 mg Documented By: WYATT Acetaminophen (Acetaminophen 325 Mg Tablet) 325 mg PO Q8H PRN PRN Reason: Pain, Moderate(Pain Scale 4-6) Last Admin: 07/01/23 01:14 Dose: 325 mg Documented By: ELENA Albuterol Sulfate (Albuterol Sulfate 90 Mcg 8 Gm Inhaler) 2 puff INHALE Q6H PRN PRN Reason: wheezing Amiodarone HCl (Amiodarone Hcl 200 Mg Tablet) 400 mg PO DAILY [facility] Last Admin: 07/02/23 08:16 Dose: 400 mg Documented By: WYATT Amoxicillin (Amoxicillin 500 Mg Capsule) 500 mg PO BID [facility] Last Admin: 07/02/23 08:16 Dose: 500 mg Documented By: WYATT Apixaban (Apixaban 5 Mg Tablet) 5 mg PO BID [facility] Last Admin: 07/02/23 08:16 Dose: 5 mg Documented By: WYATT Cyanocobalamin (Cyanocobalamin (Vitamin B-12) 1,000 Mcg/Ml Vial) 1,000 mcg IM Q30D [facility] Last Admin: 07/01/23 09:13 Dose: 1,000 mcg Documented By: RUSSELL Dextrose (Dextrose 50 % 25 Gm/50 Ml Syringe) 25 gm IVPUSH Q15M PRN; Protocol PRN Reason: per Hypoglycemia Standing Ord. Fluticasone/Umeclidinium/Vilanterol (Fluticasone/Umeclidinium/Vilanterol 200/62.5/25 Blst.W.Dev) 1 puff INHALE DAILY [facility] Last Admin: 07/02/23 08:13 Dose: 1 puff Documented By: RADHA Gabapentin (Gabapentin 100 Mg Capsule) 100 mg PO TID [facility] Last Admin: 07/02/23 08:16 Dose: 100 mg Documented By: WYATT Glucose (Glucose Gel 15 Gm Gel..Gram.) 15 gm PO Q15M PRN; Protocol PRN Reason: per Hypoglycemia Standing Ord. Ceftriaxone Sodium 1 gm/ (Sodium Chloride) 50 mls @ 100 mls/hr IV Q24H [facility] Last Infusion: 07/01/23 23:29 Dose: 0 mls/hr Documented By: JANICE Promethazine HCl 12.5 mg/ (Sodium Chloride) 50.5 mls @ 202 mls/hr IV Q6H PRN PRN Reason: Nausea and Vomiting Last Infusion: 06/30/23 18:36 Dose: 0 mls/hr Documented By: SVETA Albumin Human (Kedbumin 25 %) 100 mls @ 100 mls/hr IV Q1H [facility] Stop: 07/02/23 14:44 Insulin Glargine (Insulin Glargine,Hum.Rec.Anlog 100 Unit/Ml 10 Ml Vial) 15 unit SUBCUT BEDTIME [facility] Last Admin: 07/01/23 22:54 Dose: Not Given Documented By: JANICE Non-Admin Reason: pt not eating, aware and to hold med Insulin Human Lispro (Insulin Lispro 100 Unit/Ml 3 Ml Vial) 0 unit SUBCUT Q6H [facility]; Protocol Last Admin: 07/02/23 06:17 Dose: Not Given Documented By: JANICE Non-Admin Reason: No Insulin Coverage Comments: POC 143 Lactulose (Lactulose 20 Gm/30 Ml Solution) 30 gm PO BID [facility] Last Admin: 07/02/23 08:16 Dose: 30 gm Documented By: WYATT Melatonin (Melatonin 3 Mg Tablet) 6 mg PO BEDTIME PRN PRN Reason: Insomnia Midodrine (Midodrine Hcl 5 Mg Tablet) 5 mg PO BID@0600,1800 [facility] Last Admin: 07/02/23 05:53 Dose: 5 mg Documented By: JANICE Omeprazole (Omeprazole 20 Mg Capsule.Dr) 20 mg PO BID@0630,1630 [facility] Last Admin: 07/02/23 05:53 Dose: 20 mg Documented By: JANICE Ondansetron HCl (Ondansetron Hcl 4 Mg/2 Ml Vial) 4 mg IVPUSH Q8H PRN PRN Reason: Nausea and Vomiting Last Admin: 06/30/23 15:43 Dose: 4 mg Documented By: SVETA Ondansetron HCl (Ondansetron Odt 4 Mg Tab.Rapdis) 8 mg TRANSLINGU TID [facility] Last Admin: 07/02/23 08:16 Dose: 8 mg Documented By: WYATT Oxycodone HCl (Oxycodone Hcl Immed Release 5 Mg Tablet) 5 mg PO Q8H PRN PRN Reason: Pain, Moderate(Pain Scale 4-6) Last Admin: 07/02/23 05:01 Dose: 5 mg Documented By: JANICE Polyethylene Glycol (Polyethylene Glycol 3350 17 Gm Powd.Pack) 17 gm PO DAILY [facility] Last Admin: 07/02/23 08:24 Dose: 17 gm Documented By: WYATT Potassium Chloride (Potassium Chloride Er 20 Meq Tab.Er.Prt) 20 meq PO DAILY [facility] Last Admin: 07/02/23 08:16 Dose: 20 meq Documented By: WYATT Sertraline HCl (Sertraline Hcl 100 Mg Tablet) 100 mg PO DAILY [facility] Last Admin: 07/02/23 08:16 Dose: 100 mg Documented By: WYATT Sodium Chloride (0.9 % Sodium Chloride Flush 3 Ml Syringe) 3 ml IVFLUSH QSHIFT [facility] Last Admin: 07/02/23 08:24 Dose: 3 ml Documented By: WYATT Trolamine Salicylate (Trolamine Salicylate 10 % Cream 85 Gm Tube) 1 appl TOPICAL BID [facility] Last Admin: 07/02/23 08:24 Dose: 1 appl Documented By: WYATT Labs 06/28/23 05:07 07/01/23 06:03 Labs: Laboratory Results - last 24 hr 07/01/23 07/01/23 07/02/23 16:04 20:04 06:04 POC Glucose 181 H 152 H 143 H 07/02/23 07/02/23 07:21 11:03 POC Glucose 147 H 187 H Assessment and Plan (1) Acute metabolic encephalopathy: Status: Acute (2) Acute UTI: Status: Acute Plan This is a 73-year-old female with pertinent history of liver cirrhosis, congestive heart failure unspecified ejection fraction, insulin-dependent diabetes mellitus, mood disorder, AFib on Eliquis who was brought to the emergency department for evaluation of altered mentation. #.? Acute metabolic encephalopathy due to UTI and hepatic encephalopathy in a patient with liver cirrhosis.? Encephalopathy resolved patient seems to be at baseline, complaining of bilateral leg pain requesting for oxycodone Will continue treatment for UTI, ammonia improved #. UTI--continue IV Ceftriaxone for E. coli since 06/28 and amoxicillin for E. Faecalis, blood cultures x2 negative times 48 hours. #.? INGA versus CKD vs Hepatorenal syndrome.? Unclear baseline.? Will follow BMP case discussed with Nephrology they recommend to give additional albumin x3 dosages patient received 3 dosages of albumin will follow BMP daily, urine studies Hold diuretics, continue close clinical follow-up avoid nephrotoxins On midodrine BP stable. #.? Hyponatremia d/t cirrhosis. Sodium normalize continue? fluid restriction and follow levels. #.? Insulin-dependent diabetes mellitus with hyperglycemia.? Blood sugars stable continue Lantus and insulin sliding scale #.? Liver cirrhosis, likely from fatty liver. Continue lactulose , diuretics on hold as above #.? Paroxysmal atrial fibrillation Rate controlled , continue amiodarone and Eliquis. #.? Congestive heart failure, unspecified ejection fraction.? No decompensation during admission. #.? Mood disorder.? Continue home mood stabilizers. DVT prophylaxis: Eliquis DNR/DNI.? Overall prognosis is poor. Need continued inpatient hospitalization for management of acute metabolic encephalopathy and acute versus chronic kidney disease. Time Spent With Patient Time: Total time managing care of this patient today ____ minutes. Quality Stroke Does the patient have a stroke diagnosis?: No VTE Prior VTE?: No VTE Risk Level:: Medical - moderate - high VTE Device Contraindication: Treatment Not Indicated VTE Drug Contraindication: N/A - Med Ordered
[2023-07-02] MEDS: Insulin Lispro 100 UNIT/ML 3 ML VIAL SUBCUT ×2 (11:53→17:21)
[2023-07-02] MEDS: Albumin Human 25 % 100 ML IV ×3 (11:59→14:23)
--- NOTE | 2023-07-02 12:49 | MHC.SL.DTX ---
Dysphagia Diet modifications: Last documented Solid diet consistencies: Chopped/Advanced (NDD3) Last documented Liquid consistency: Thin Changes made to current diet?: Yes: UPGRADE solids Liquid Consistency and Strategies: Liquid Intake Recommendation: Thin Compensatory Strategies for Safe Swallow: Small Sips Unrestricted Compensatory Strategies for Safe Swallow(b): Sitting Upright (90 deg) Small Bites and Sips Alternate Liquids/Solids Rate of Ingestion Change Oral Check Avoid Specific Foods Solid Food Consistency: Dietary Recommendations: Chopped/Advanced (NDD3) Additional Modifications to Solids: Oral Medication Intake: Whole with Puree Strategies and Precautions to be Taken for Safe Swallow: Sitting Upright (90 deg) Small Bites and Sips Alternate Liquids/Solids Rate of Ingestion Change Oral Check Avoid Specific Foods Supervision While Eating and/Drinking: Total Assistance (1:1) Foods to Avoid: Avoid sticky and tough to chew foods Swallowing Recommended Treatments: Compens. Strategy Educat. Level of Impact on: Daily activities: Interpersonal interactions: Education: Employment: Community: Prognosis for Improvement: Recommendation for Speech: Speech Therapy through Rehab Facility Comment: Recommend UPGRADE to CHOPPED/ADVANCED solids (NDD3). Continue w/ THIN liquids. Recommend pills WHOLE in PUREE. If administered whole w/ liquid, recommend 1 pill at a time. Aspiration precautions and 1:1 feeding assistance. Prognosis to maintain adequate nutrition by mouth is poor in her current state. She may benefit from NG tube or IV nutrition as she stabilizes given the length of time she has already had minimal intake. Frequency/Duration: Date Range for Service Req: Timeline to reassess: PRN Additional Comments: Per RN, patient is rejecting pills crushed due to the taste. She has been tolerating pills whole w/ liquid, one at a time. Treatment: Pt is complaining of pain, all over . She is requesting water. RN confirms she is not on a fluid restriction. Her tray arrives with only Zoey Nanette and Squash Soup stating, Why do they do that ? She is supportive of trying a Chicken Salad sandwich. She tolerated 1/2 the sandwich with slowed oral preparation but no overt s/s of aspiration. She was slow to raise the sand wich to her mouth and spilled her soup 2/2 hand tremors. Pt will likely require 1:1 assistance/supervision with meals. Assessment: Video Machines Mechanic Clinican/Clinical Fellow: No Supervisory Statement: I have reviewed and agree with the student/clinical fellow's documentation: N/A Speech Language Pathologist: Annetta Brand M.A., CCC-T[employer]ING [employer]ER
[2023-07-02 15:02] VITALS: BP 149/44; PULSE 63; RESP 63; TEMP 36.6; O2SAT 95
[2023-07-02 15:37] LABS: Anion Gap 14 (12-20); Blood Urea Nitrogen 38 mg/dL (9-16); Calcium 9.5 mg/dL (8.4-10.2); Carbon Dioxide 25 mmol/L (22-29); Chloride 99 mmol/L (96-108); Creatinine Clr Calc Pharmacy 25.4; Estimated Glomerular Filt Rate 23; Glucose Random 150 mg/dL (60-115); Potassium 4.1 mmol/L (3.3-5.1); Sodium 134 mmol/L (135-145)
--- NOTE | 2023-07-02 16:03 | PM.PNNEP ---
Subjective Subjective Date of Service: 07/02/23 Interval history: Seen and examined, events ntoed Physical Exam Vital Signs: Vital Signs: Last Vital Signs Temp 97.8 F 07/02/23 15:02 Pulse 63 07/02/23 15:02 Resp 63 H 07/02/23 15:02 BP 149/44 H 07/02/23 15:02 Pulse Ox 95 07/02/23 15:02 O2 Del Method Room Air 07/02/23 15:02 BMI result Body Mass Index 33.9 Const: Other: General: no distres Resp: CTA bilateral CVS: S1,S2,RRR GI: +BS, NT, no distention Skin: No rash Neuro: motor grossly intact Psych: appropriate affect General: cooperative, comfortable, no acute distress and lethargic Orientation/consciousness: lethargic HEENT: Other: PERRLA, no facial asymmetry; she is pale Neck: Other: ecchymosis right side of neck, no JVD Resp: Other: clear to auscultation without rales Cardio: Jugular venous distension: no JVD Rate: tachycardic Rhythm: abnormal rhythm Heart sounds: S1 normal heart sound present and S2 normal heart sound present GI: Other: abdomen obese Extrem: Other: Bilateral LE edema 1 plus pretib Psych: Other: pt is having a hard time answering questions, saying her name or responding; she is verbalizing but appears confused , encephalopathic, tremor in RUE Mental Status: other Objective Data Labs 06/28/23 05:07 07/02/23 14:56 Labs: Laboratory Results - last 24 hr 07/01/23 07/01/23 07/02/23 16:04 20:04 06:04 Sodium Potassium Chloride Carbon Dioxide Anion Gap BUN Creatinine Estim Creat Clear Calc Estimated GFR POC Glucose 181 H 152 H 143 H Random Glucose Calcium 07/02/23 07/02/23 07/02/23 07:21 11:03 14:56 Sodium 134 L Potassium 4.1 Chloride 99 Carbon Dioxide 25 Anion Gap 14 BUN 38 H Creatinine 2.07 H Estim Creat Clear Calc 25.4 Estimated GFR 23 POC Glucose 147 H 187 H Random Glucose 150 H Calcium 9.5 Microbiology Microbiology Results: Microbiology 06/27/23 20:41 Urine clean catch - Urine titus top Urine Culture - Final Escherichia coli Enterococcus faecalis 06/27/23 20:40 Blood - Venous Blood Culture - Preliminary No growth after 48 hours. 06/27/23 20:41 Blood - Venous Blood Culture - Preliminary No growth after 48 hours. Procedures Date of Service Date of Service: 07/02/23 Assessment & Plan Assessment and plan (1) Acute kidney injury: Status: Acute (2) Cirrhosis: Status: Acute (3) Hyponatremia: Status: Acute Plan INGA on CKD vs ADV CKD remains unclear as we have no outside prior SCr to reveiw Good news is SCr grad decr 2.6-->--> 2.0 today H/O cirrhosis make HRS a concern but Gab > 50 goes against this REC: cont IV albumin and midrodine, the latter if SBP < 130, and track UOP/renal func;; repeat ure studies and will look on [facility] and [facility] systems for prior SCr; avoid NToxins will follow w team Time Spent With Patient Time: Total time managing care of this patient today ____ minutes. Progress Note: Quality Stroke Does the patient have a stroke diagnosis?: No
[2023-07-02 16:27] LABS: Glucose, Whole Blood 156 mg/dL (60-115)
[2023-07-02 20:00] VITALS: BP 110/53; PULSE 65; RESP 18; TEMP 36.5; O2SAT 97
[2023-07-02 20:46] LABS: Glucose, Whole Blood 133 mg/dL (60-115)
[2023-07-02] MEDS: Insulin Glargine,Hum.rec.anlog 100 UNIT/ML 10 ML VIAL 15 UNIT SUBCUT (20:50)
[2023-07-02] MEDS: Melatonin 3 MG TABLET 6 MG PO (20:53)
[2023-07-02] MEDS: cefTRIAXone sodium 1 GM in 0.9 % Sodium Chloride 50 ML IV (22:04)
[2023-07-03] VITALS (7 sets, daily range): BP systolic 91–110; BP diastolic 43–65; PULSE 55–65; RESP 16–18; TEMP 36–36.5; O2SAT 97–100
[2023-07-03 05:33] LABS: Sodium Urine Random < 20.0 mmol/L; Total Protein Urine Random 13 mg/dL (<12)
[2023-07-03] MEDS: Midodrine HCl 5 MG TABLET PO ×2 (05:39→17:21)
[2023-07-03] MEDS: Omeprazole 20 MG CAPSULE.DR PO ×2 (05:39→16:02)
[2023-07-03] MEDS: Acetaminophen 325 MG TABLET 650 MG PO ×3 (05:56→21:26)
[2023-07-03 06:08] LABS: Glucose, Whole Blood 170 mg/dL (60-115)
[2023-07-03 06:49] LABS: Anion Gap 15 (12-20); Blood Urea Nitrogen 43 mg/dL (9-16); Calcium 9.2 mg/dL (8.4-10.2); Carbon Dioxide 23 mmol/L (22-29); Chloride 96 mmol/L (96-108); Creatinine Clr Calc Pharmacy 24.2; Estimated Glomerular Filt Rate 22; Glucose Random 152 mg/dL (60-115); Potassium 4.4 mmol/L (3.3-5.1); Sodium 130 mmol/L (135-145)
[2023-07-03 07:24] LABS: Glucose, Whole Blood 160 mg/dL (60-115)
[2023-07-03] MEDS: Lactulose 20 GM/30 ML SOLUTION 30 GM PO ×2 (07:47→21:27)
[2023-07-03] MEDS: Gabapentin 100 MG CAPSULE PO ×3 (07:48→21:26)
[2023-07-03] MEDS: oxyCODONE HCl Immed Release 5 MG TABLET PO ×3 (07:48→23:57)
[2023-07-03] MEDS: Sertraline HCL 100 MG TABLET PO (07:48)
[2023-07-03] MEDS: Amoxicillin 500 MG CAPSULE PO ×2 (07:48→21:26)
[2023-07-03] MEDS: Apixaban 5 MG TABLET PO ×2 (07:48→21:26)
[2023-07-03] MEDS: 0.9 % Sodium Chloride Flush 3 ML SYRINGE IVFLUSH ×3 (07:48→23:53)
[2023-07-03] MEDS: Amiodarone HCL 200 MG TABLET 400 MG PO (07:48)
[2023-07-03] MEDS: Fluticasone/Umeclidinium/Vilanterol 200/62.5/25 BLST.W.DEV 1 PUFF INHALE (08:20)
[2023-07-03 09:24] LABS: EOS Counted 0 CELLS; EOS QC POS YES; EOS Stain Quality OK YES; WBC, Counted 100 CELLS
[2023-07-03 11:15] LABS: Glucose, Whole Blood 199 mg/dL (60-115)
--- NOTE | 2023-07-03 11:41 | MHC.CLN ---
F/U DIET=NDD3 CONSISTENCY. SUPPLEMENT ENSURE TID PROVIDES 1050 KCALS, 60 G PROTEIN. INTAKE CONTINUES POOR SINCE ADMISSION. DAY 7 WITH PO 0-25%. NOT MEETING NUTRITIONAL NEEDS. REQUIRES 1:1 ASSISTANCE WITH FEEDING. DTI TO BILATERAL BUTTOCKS. FOLLOW FOR PLAN OF CARE.
--- NOTE | 2023-07-03 14:11 | MHC.CM.PN ---
Addendum entered by Rosalba Olivo RN 07/03/23 14:12: PT DOES NOT HAVE PAYOR FOR ROOM & BOARD IF SHE DC'S TO SNF W/HOSPICE, REFERRAL TO FS PLACED BY PREVIOUS CM AND FS FOLLOWED UP [facility]/HCP TODAY, CM AWAITING UPDATE. Original Note: EMR REVIEWED, PER HOSPITALIST PT NOT YET READY FOR D/C, [facility] UPDATED VIA [facility], PLAN CURRENTLY RETURN TO [facility] (OR ANOTHER SNF) VS W/HOSPICE, CM WILL CONT TO FOLLOW D/C NEEDS.
--- NOTE | 2023-07-03 14:26 | HO.PM.IMPN ---
Subjective Subjective Date of Service: 07/03/23 Interval History: Awake alert resting comfortably requesting for pain medication for generalize and leg pain, poor by mouth intake denies lightheadedness, no dizziness, no chest pain, no palpitation, no lightheadedness denies nausea vomiting, no diarrhea, son at bedside feels patient mentation has improved significantly. Review of Systems All other system reviewed and negative Physical Exam Vital Signs: Vital Signs: Last Vital Signs Temp 97.0 F 07/03/23 07:28 Pulse 65 07/03/23 08:23 Resp 16 07/03/23 08:23 BP 93/45 L 07/03/23 07:28 Pulse Ox 97 07/03/23 07:28 O2 Del Method Room Air 07/03/23 07:28 BMI result Body Mass Index 33.9 Const: Other: General:? Awake alert in no acute distress answering questions appropriately Neck no JVD Resp:? CTA bilateral CVS: S1,S2,RRR GI: +BS, soft and, nontender, no distention Skin: No rash Extremities no edema Neuro:? motor grossly intact Psych: appropriate affect Objective Data Active Medications Acetaminophen (Acetaminophen 325 Mg Tablet) 650 mg PO Q6H PRN PRN Reason: Pain, Mild (Pain Scale 1-3) Last Admin: 07/03/23 14:22 Dose: 650 mg Documented By: ALYSSA Acetaminophen (Acetaminophen 325 Mg Tablet) 325 mg PO Q8H PRN PRN Reason: Pain, Moderate(Pain Scale 4-6) Last Admin: 07/01/23 01:14 Dose: 325 mg Documented By: ELENA Albuterol Sulfate (Albuterol Sulfate 90 Mcg 8 Gm Inhaler) 2 puff INHALE Q6H PRN PRN Reason: wheezing Amiodarone HCl (Amiodarone Hcl 200 Mg Tablet) 400 mg PO DAILY [facility] Last Admin: 07/03/23 07:48 Dose: 400 mg Documented By: ALYSSA Amoxicillin (Amoxicillin 500 Mg Capsule) 500 mg PO BID [facility] Last Admin: 07/03/23 07:48 Dose: 500 mg Documented By: ALYSSA Apixaban (Apixaban 5 Mg Tablet) 5 mg PO BID [facility] Last Admin: 07/03/23 07:48 Dose: 5 mg Documented By: ALYSSA Cyanocobalamin (Cyanocobalamin (Vitamin B-12) 1,000 Mcg/Ml Vial) 1,000 mcg IM Q30D [facility] Last Admin: 07/01/23 09:13 Dose: 1,000 mcg Documented By: RUSSELL Dextrose (Dextrose 50 % 25 Gm/50 Ml Syringe) 25 gm IVPUSH Q15M PRN; Protocol PRN Reason: per Hypoglycemia Standing Ord. Fluticasone/Umeclidinium/Vilanterol (Fluticasone/Umeclidinium/Vilanterol 200/62.5/25 Blst.W.Dev) 1 puff INHALE DAILY [facility] Last Admin: 07/03/23 08:20 Dose: 1 puff Documented By: NAN Gabapentin (Gabapentin 100 Mg Capsule) 100 mg PO TID [facility] Last Admin: 07/03/23 14:22 Dose: 100 mg Documented By: ALYSSA Glucose (Glucose Gel 15 Gm Gel..Gram.) 15 gm PO Q15M PRN; Protocol PRN Reason: per Hypoglycemia Standing Ord. Ceftriaxone Sodium 1 gm/ (Sodium Chloride) 50 mls @ 100 mls/hr IV Q24H [facility] Last Infusion: 07/02/23 22:53 Dose: 0 mls/hr Documented By: AVELINO Promethazine HCl 12.5 mg/ (Sodium Chloride) 50.5 mls @ 202 mls/hr IV Q6H PRN PRN Reason: Nausea and Vomiting Last Infusion: 06/30/23 18:36 Dose: 0 mls/hr Documented By: SVETA Insulin Glargine (Insulin Glargine,Hum.Rec.Anlog 100 Unit/Ml 10 Ml Vial) 15 unit SUBCUT BEDTIME [facility] Last Admin: 07/02/23 20:50 Dose: 15 unit Documented By: AVELINO Insulin Human Lispro (Insulin Lispro 100 Unit/Ml 3 Ml Vial) 0 unit SUBCUT Q6H [facility]; Protocol Last Admin: 07/03/23 12:36 Dose: Not Given Documented By: ALYSSA Non-Admin Reason: patient not eating lunch Lactulose (Lactulose 20 Gm/30 Ml Solution) 30 gm PO BID [facility] Last Admin: 07/03/23 07:47 Dose: 30 gm Documented By: ALYSSA Melatonin (Melatonin 3 Mg Tablet) 6 mg PO BEDTIME PRN PRN Reason: Insomnia Last Admin: 07/02/23 20:53 Dose: 6 mg Documented By: AVELINO Midodrine (Midodrine Hcl 5 Mg Tablet) 5 mg PO BID@0600,1800 [facility] Last Admin: 07/03/23 05:39 Dose: 5 mg Documented By: AVELINO Omeprazole (Omeprazole 20 Mg Capsule.Dr) 20 mg PO BID@0630,1630 [facility] Last Admin: 07/03/23 05:39 Dose: 20 mg Documented By: AVELINO Ondansetron HCl (Ondansetron Hcl 4 Mg/2 Ml Vial) 4 mg IVPUSH Q8H PRN PRN Reason: Nausea and Vomiting Last Admin: 06/30/23 15:43 Dose: 4 mg Documented By: SVETA Ondansetron HCl (Ondansetron Odt 4 Mg Tab.Rapdis) 8 mg TRANSLINGU TID [facility] Last Admin: 07/03/23 08:14 Dose: Not Given Documented By: ALYSSA Non-Admin Reason: Patient Condition Contraindication Oxycodone HCl (Oxycodone Hcl Immed Release 5 Mg Tablet) 5 mg PO Q8H PRN PRN Reason: Pain, Moderate(Pain Scale 4-6) Last Admin: 07/03/23 07:48 Dose: 5 mg Documented By: ALYSSA Polyethylene Glycol (Polyethylene Glycol 3350 17 Gm Powd.Pack) 17 gm PO DAILY [facility] Last Admin: 07/03/23 07:54 Dose: Not Given Documented By: ALYSSA Non-Admin Reason: Patient Refused Potassium Chloride (Potassium Chloride Er 20 Meq Tab.Er.Prt) 20 meq PO DAILY [facility] Last Admin: 07/03/23 08:14 Dose: Not Given Documented By: ALYSSA Non-Admin Reason: Patient Refused Sertraline HCl (Sertraline Hcl 100 Mg Tablet) 100 mg PO DAILY [facility] Last Admin: 07/03/23 07:48 Dose: 100 mg Documented By: ALYSSA Sodium Chloride (0.9 % Sodium Chloride Flush 3 Ml Syringe) 3 ml IVFLUSH QSHIFT [facility] Last Admin: 07/03/23 07:48 Dose: 3 ml Documented By: ALYSSA Trolamine Salicylate (Trolamine Salicylate 10 % Cream 85 Gm Tube) 1 appl TOPICAL BID [facility] Last Admin: 07/03/23 12:36 Dose: Not Given Documented By: ALYSSA Non-Admin Reason: Patient Refused Labs 06/28/23 05:07 07/03/23 05:50 Labs: Laboratory Results - last 24 hr 07/02/23 07/02/23 07/02/23 14:56 16:13 20:41 Anion Gap 14 Estim Creat Clear Calc 25.4 Estimated GFR 23 POC Glucose 156 H 133 H Random Glucose 150 H Calcium 9.5 Urine Eosinophils % U Random Total Protein Ur Random Sodium Urine Creatinine 07/03/23 07/03/23 07/03/23 05:03 05:03 05:03 Anion Gap Estim Creat Clear Calc Estimated GFR POC Glucose Random Glucose Calcium Urine Eosinophils % 0.0 U Random Total Protein 13 H Ur Random Sodium < 20.0 Urine Creatinine 58.90 07/03/23 07/03/23 07/03/23 05:50 06:03 07:07 Anion Gap 15 Estim Creat Clear Calc 24.2 Estimated GFR 22 POC Glucose 170 H 160 H Random Glucose 152 H Calcium 9.2 Urine Eosinophils % U Random Total Protein Ur Random Sodium Urine Creatinine 07/03/23 11:09 Anion Gap Estim Creat Clear Calc Estimated GFR POC Glucose 199 H Random Glucose Calcium Urine Eosinophils % U Random Total Protein Ur Random Sodium Urine Creatinine Microbiology Microbiology Results: Microbiology 06/27/23 20:40 Blood Culture - Final Blood - Venous No growth after 5 days. 06/27/23 20:41 Blood Culture - Final Blood - Venous No growth after 5 days. Assessment and Plan (1) Acute metabolic encephalopathy: Status: Acute (2) Acute UTI: Status: Acute Plan This is a 73-year-old female with pertinent history of liver cirrhosis, congestive heart failure unspecified ejection fraction, insulin-dependent diabetes mellitus, mood disorder, AFib on Eliquis who was brought to the emergency department for evaluation of altered mentation. #.? Acute metabolic encephalopathy due to UTI and hepatic encephalopathy in a patient with liver cirrhosis.? Encephalopathy resolved , answering questions appropriately ,son at bedside feels patient is at her baseline Will continue treatment for UTI, ammonia improved. Poor by mouth intake discussed alternate nutrition however patient and son declined, continue Ensure, son will bring food from home. #. UTI--on IV Ceftriaxone for E. coli since 06/28 and amoxicillin for E. Faecalis, blood cultures x2 negative times 48 hours. No leukocytosis, no fevers transition to by mouth antibiotics #.? INGA versus CKD stage 3 baseline creatinine 1.3-2.? Reviewed old records from [facility] being followed by Dr. Ham as outpatient Creatinine trending down 2.17 today, status post IV albumin x 6 bags, soft blood pressure will give additional albumin Hold diuretics, continue close clinical follow-up avoid nephrotoxins On midodrine #.? Hyponatremia d/t cirrhosis. Sodium 129 on admission improved to Sodium 130-134,seems chronic, continue fluid restriction and follow levels. #.? Insulin-dependent diabetes mellitus with hyperglycemia.? Blood sugars stable continue Lantus and insulin sliding scale #.? Liver cirrhosis, from BLOOM. Continue lactulose , diuretics on hold as above #.? Paroxysmal atrial fibrillation Rate controlled , continue amiodarone and Eliquis. #.? Congestive heart failure, unspecified ejection fraction.? No decompensation during admission. Diuretics on hold since appears euvolemic and has soft blood pressures #.? Mood disorder.? Continue home mood stabilizers. DVT prophylaxis: Eliquis DNR/DNI.? Overall prognosis is poor. Need continued inpatient hospitalization for management of acute on chronic kidney disease, UTI. Possible discharge to rehab facility at a.m. Time Spent With Patient Time: Total time managing care of this patient today ____ minutes. Quality Stroke Does the patient have a stroke diagnosis?: No VTE Prior VTE?: No VTE Risk Level:: Medical - moderate - high VTE Device Contraindication: Treatment Not Indicated VTE Drug Contraindication: N/A - Med Ordered
[2023-07-03] MEDS: Albumin Human 25 % 100 ML IV ×2 (15:53→21:20)
[2023-07-03 16:45] LABS: Glucose, Whole Blood 187 mg/dL (60-115)
--- NOTE | 2023-07-03 16:46 | PM.PNNEP ---
Subjective Subjective Date of Service: 07/03/23 Interval history: Seen and examined, events noted Physical Exam Vital Signs: Vital Signs: Last Vital Signs Temp 97.3 F 07/03/23 15:18 Pulse 55 07/03/23 15:18 Resp 18 07/03/23 15:18 BP 91/43 L 07/03/23 15:18 Pulse Ox 100 07/03/23 15:18 O2 Del Method Room Air 07/03/23 15:18 BMI result Body Mass Index 33.9 Const: Other: General: no distres Resp: CTA bilateral CVS: S1,S2,RRR GI: +BS, NT, no distention Skin: No rash Neuro: motor grossly intact Psych: appropriate affect General: cooperative, comfortable, no acute distress and lethargic Orientation/consciousness: lethargic HEENT: Other: PERRLA, no facial asymmetry; she is pale Neck: Other: ecchymosis right side of neck, no JVD Resp: Other: clear to auscultation without rales Cardio: Jugular venous distension: no JVD Rate: tachycardic Rhythm: abnormal rhythm Heart sounds: S1 normal heart sound present and S2 normal heart sound present GI: Other: abdomen obese Extrem: Other: Bilateral LE edema 1 plus pretib Psych: Other: pt is having a hard time answering questions, saying her name or responding; she is verbalizing but appears confused , encephalopathic, tremor in RUE Mental Status: other Objective Data Labs 06/28/23 05:07 07/03/23 05:50 Labs: Laboratory Results - last 24 hr 07/02/23 07/03/23 07/03/23 20:41 05:03 05:03 Sodium Potassium Chloride Carbon Dioxide Anion Gap BUN Creatinine Estim Creat Clear Calc Estimated GFR POC Glucose 133 H Random Glucose Calcium Urine Eosinophils % 0.0 U Random Total Protein Ur Random Sodium < 20.0 Urine Creatinine 58.90 07/03/23 07/03/23 07/03/23 05:03 05:50 06:03 Sodium 130 L Potassium 4.4 Chloride 96 Carbon Dioxide 23 Anion Gap 15 BUN 43 H Creatinine 2.17 H Estim Creat Clear Calc 24.2 Estimated GFR 22 POC Glucose 170 H Random Glucose 152 H Calcium 9.2 Urine Eosinophils % U Random Total Protein 13 H Ur Random Sodium Urine Creatinine 07/03/23 07/03/23 07/03/23 07:07 11:09 16:37 Sodium Potassium Chloride Carbon Dioxide Anion Gap BUN Creatinine Estim Creat Clear Calc Estimated GFR POC Glucose 160 H 199 H 187 H Random Glucose Calcium Urine Eosinophils % U Random Total Protein Ur Random Sodium Urine Creatinine Microbiology Microbiology Results: Microbiology 06/27/23 20:40 Blood - Venous Blood Culture - Final No growth after 5 days. 06/27/23 20:41 Blood - Venous Blood Culture - Final No growth after 5 days. 06/27/23 20:41 Urine clean catch - Urine titus top Urine Culture - Final Escherichia coli Enterococcus faecalis Procedures Date of Service Date of Service: 07/03/23 Assessment & Plan Assessment and plan (1) Acute kidney injury: Status: Acute (2) Cirrhosis: Status: Acute (3) Hyponatremia: Status: Acute Plan INGA on CKD vs ADV CKD remains unclear as we have no outside prior SCr to reveiw FENa < 1% noted Good news is SCr grad decr 2.6-->--> 2.1 H/O cirrhosis make HRS a concern but Gab > 50 goes against this REC: cont IV albumin and midrodine, the latter if SBP < 130, and track UOP/renal func; avoid NToxins will follow w team Time Spent With Patient Time: Total time managing care of this patient today ____ minutes. Progress Note: Quality Stroke Does the patient have a stroke diagnosis?: No
[2023-07-03 17:51] LABS: Glucose, Whole Blood 189 mg/dL (60-115)
--- NOTE | 2023-07-03 17:55 | MHC.SLORD ---
Speech Language Pathology Order Status: RESISTOR TESTING MACHINE OPERATOR attempted to see patient, patient awaiting RN for meds. Per PICKLING TANK OPERATOR, patient swallowed limited liquids and oatmeal w/o complication at breakfast then refused lunch 2+ times. RESISTOR TESTING MACHINE OPERATOR to continue to follow.
[2023-07-03 20:43] LABS: Glucose, Whole Blood 175 mg/dL (60-115)
[2023-07-03] MEDS: Insulin Glargine,Hum.rec.anlog 100 UNIT/ML 10 ML VIAL 15 UNIT SUBCUT (21:24)
[2023-07-03] MEDS: Ondansetron ODT 4 MG TAB.RAPDIS 8 MG TRANSLINGU (21:26)
[2023-07-03] MEDS: Trolamine Salicylate 10 % Cream 85 GM TUBE 1 APPL TOPICAL (21:28)
[2023-07-03] MEDS: cefTRIAXone sodium 1 GM in 0.9 % Sodium Chloride 50 ML IV (22:38)
[2023-07-04] VITALS (11 sets, daily range): BP systolic 84–118; BP diastolic 42–68; PULSE 54–85; RESP 16–18; TEMP 36–36.7; O2SAT 96–100
[2023-07-04] MEDS: Albumin Human 25 % 100 ML IV ×2 (03:16→08:38)
[2023-07-04 05:56] LABS: Glucose, Whole Blood 164 mg/dL (60-115)
[2023-07-04] MEDS: Midodrine HCl 5 MG TABLET PO ×2 (06:40→17:55)
[2023-07-04] MEDS: Insulin Lispro 100 UNIT/ML 3 ML VIAL SUBCUT ×2 (06:40→17:55)
[2023-07-04 06:53] LABS: Hematocrit 21.2 % (37.0-47.0); Mean Corpuscular HGB Conc 31.1 g/dl (31.0-35.0); Mean Corpuscular Hemoglobin 28.7 pg (27.0-33.0); Mean Corpuscular Volume 92.2 fL (80.0-98.0); Mean Platelet Volume 12.5 fL (9.4-12.3); Red Cell Distribution Width 18.4 % (11.0-16.0)
[2023-07-04 07:26] LABS: Anion Gap 16 (12-20); Blood Urea Nitrogen 50 mg/dL (9-16); Calcium 9.2 mg/dL (8.4-10.2); Carbon Dioxide 22 mmol/L (22-29); Chloride 95 mmol/L (96-108); Creatinine Clr Calc Pharmacy 20.6; Estimated Glomerular Filt Rate 18; Glucose Random 162 mg/dL (60-115); Sodium 129 mmol/L (135-145)
[2023-07-04] MEDS: Fluticasone/Umeclidinium/Vilanterol 200/62.5/25 BLST.W.DEV 1 PUFF INHALE (07:49)
[2023-07-04 08:02] LABS: Hemoglobin 6.6 g/dl (12.0-16.0)
[2023-07-04 08:03] LABS: Platelet Count 97 X10*3/uL (160-400)
[2023-07-04] MEDS: Lactulose 20 GM/30 ML SOLUTION 30 GM PO (08:38)
[2023-07-04] MEDS: Sertraline HCL 100 MG TABLET PO (08:39)
[2023-07-04] MEDS: Amiodarone HCL 200 MG TABLET 400 MG PO (08:39)
[2023-07-04] MEDS: oxyCODONE HCl Immed Release 5 MG TABLET PO (08:39)
[2023-07-04] MEDS: polyethylene glycoL 3350 17 GM POWD.PACK PO (08:39)
[2023-07-04] MEDS: Gabapentin 100 MG CAPSULE PO ×2 (08:40→21:20)
[2023-07-04] MEDS: Apixaban 5 MG TABLET PO (08:40)
[2023-07-04] MEDS: 0.9 % Sodium Chloride Flush 3 ML SYRINGE IVFLUSH ×2 (08:40→17:55)
[2023-07-04] MEDS: Trolamine Salicylate 10 % Cream 85 GM TUBE 1 APPL TOPICAL ×2 (08:41→21:22)
--- NOTE | 2023-07-04 09:00 | MHC.CM.PN ---
ELDA CONTACTED [facility] [place] [facility] FOR UPDATE, [facility] REPORTS SHE SPOKE W/PT'S BROTHER DANGELO YESTERDAY TO DISCUSS [facility], DANGELO WAS EMAILED THE CHECKLIST OF DOCUMENTS NEEDED FOR THE [facility] AND WILL FOLLOW UP W/HIM TODAY, FS REPORTS DANGELO IS HCP AND POA, POA NOT ON FILE AND FS WILL REQUEST COPY WHEN THEY FOLLOW-UP W/DANGELO LATER TODAY. CM WILL CONT TO FOLLOW.
[2023-07-04] MEDS: 0.9 % Sodium Chloride 1,000 ML 100 ML IVCONT (09:56)
--- NOTE | 2023-07-04 10:50 | MHC.SL.SWA ---
Speech Pathologist Impression: Risk of Aspiration Due to: Lethargy Dysphasia Diet Status: Recommend continue on CHOPPED/ADVANCED solids (NDD3) and THIN liquids. Recommend pills WHOLE in PUREE. If administered whole w/ liquid, recommend 1 pill at a time. Liquid Consistency and Strategies for Safe Swallow: Liquid Intake Recommendation: Thin Liquid Intake Strategies: Small Sips Solid Food Consistency: Dietary Recommendations: Chopped/Advanced (NDD3) Additional Modifications to Solid Foods: pills given one at a time. Patient requires 1-1 feeding. Encourage patient to eat preferred foods. Patient may benefit from multiple smaller meals during the day, therefore remove some preferred food items for tray to be offered as an interim snack (to encourage PO). Oral Medication Intake: Whole with Liquid Please contact the pharmacy regarding appropriate crushable or liquid drug formulations that are available whenever modified delivery is recommended. Compensatory Strategies and Precautions to be Taken for Safe Swallow: Sitting Upright (90 deg) Liquids from Cup Small Bites and Sips Alternate Liquids/Solids Supervision While Eating and Drinking for Safe Swallow: Total Assistance (1:1) Foods to Avoid: Avoid sticky and tough to chew foods Swallowing Recommended Treatments: Compens. Strategy Educat. Recommendation for Speech: Speech Therapy through Rehab Facility Comment: Patient seen this morning for TX. Patient continues with poor PO intake, accepted only sips of liquid and bites of ice cream during treatment, no clinical signs of aspriation observed. Recommend continue with current diet of Chopped/Advanced (NDD3) with Thin liquids. Recommend continue with giving pills given one at a time with liquids. Patient requires 1-1 feeding. Encourage patient to eat preferred foods. Patient may benefit from multiple smaller meals during the day, therefore remove some preferred food items for tray to be offered as an interim snack (to encourage PO). Frequency/Duration: Date Range for Service Req: Timeline to reassess: PRN Meter Shop Supervisor Clinican/Clinical Fellow: No Supervisory Statement: I have reviewed and agree with the student/clinical fellow's documentation: N/A Speech Language Pathologist: Rosalba Mullins M.A., CCC-SCOURING PADS SUPERVISOR
[2023-07-04 11:38] LABS: Glucose, Whole Blood 175 mg/dL (60-115)
--- NOTE | 2023-07-04 12:25 | P.CNHO_ITS ---
Subjective - Subjective Chief complaint: Consult for: 1. Anemia. 2. Hepatorenal syndrome. Patient: new to practice Consult date: 07/04/23 Primary Care Provider: Tremaine. Medical Summary: DIAGNOSIS: ANEMIA. HPI - Consult Narrative Reason for consult: Anemia. Failure to thrive. Narrative: Bella Porter is a 73 year old lady with pertinent history of liver cirrhosis, congestive heart failure, low ejection fraction, insulin-dependent diabetes mellitus, mood disorder, AFib on Eliquis, who was brought to the emergency department for evaluation of altered mentation. History obtained from family at bedside and chart review. About 3-4 days prior to presentation, patient developed decreased mentation and decreased p.o. intake. She has been drowsy over the last few days. Not eating or drinking well. Patient does have some liver problem and occasionally gets confused when her ammonia level gets high. Possible dysuria according to family. Unable to obtain review of systems accurately from the patient. Patient is only oriented to self at this time. She does not know why she is in the hospital. Review of Systems 2 Review of Systems: Yes Unobtainable due to mental status PMFSH Medical History: Atrial fibrillation CHF (congestive heart failure) COPD (chronic obstructive pulmonary disease) Hypertension Pulmonary hypertension Type 2 diabetes mellitus Pertinent family history: Unable to obtain. Social History: Alcohol intake: never Smoked in Last 30 Days: No Use of substances other than those prescribed or required for medical reasons: No Advance Directives: Yes Advance Directives Information Provided: No Advance Directives on File: No Review of Systems - Constitutional Reports system reviewed and no additional complaints, except as documented, Reports anorexia, Reports fatigue, Reports lack of energy, Reports malaise, Reports weight loss, Denies fever(s) - Eyes Reports system reviewed and no additional complaints, except as documented, Reports blurry vision - ENT Reports system reviewed and no additional complaints, except as documented, Reports dizziness - Cardiovascular Reports system reviewed and no additional complaints, except as documented, Denies chest pain at rest - Respiratory Reports no additional respiratory complaints, Denies chest congestion - Gastrointestinal Reports system reviewed and no additional complaints, except as documented, Denies black, tarry stools - Genitourinary Reports no additional female genitourinary complaints, Reports difficulty starting urination, Denies abnormal vaginal bleeding - Musculoskeletal Reports system reviewed and no additional complaints, except as documented, Reports back pain, Reports body aches - Integumentary/Breasts Skin/Breast: Reports no additional skin complaints, Denies bleeding lesions - Neurologic Reports system reviewed and no additional complaints, except as documented - Psychiatric Reports system reviewed and no additional complaints, except as documented - Endocrine Reports no additional endocrine complaints - Hematologic/Lymphatic Reports system reviewed and no additional complaints, except as documented - Allergic/Immunologic Reports system reviewed and no additional complaints, except as documented Oncology Screenings - ECOG Performance Status ECOG Performance Status: 2 [facility] Medical History: Medical History (Last Reviewed 06/27/23 @ 22:49 by Antoni Williamson MD) Atrial fibrillation CHF (congestive heart failure) COPD (chronic obstructive pulmonary disease) Hypertension Pulmonary hypertension Type 2 diabetes mellitus Functional capacity: wheelchair bound Patient : No Social History: Social History (Last Reviewed 06/27/23 @ 22:49 by Antoni Williamson MD) Living Situation History: Household Members: Children Housing: House Do you presently have visiting nurse or other home services: Do you presently have visiting nurse or other home services comment: unknown Alcohol History: Unable to assess alcohol history related to: Unknown Tobacco History: Patient Tobacco Use Status: Tobacco use Unknown Home Medications and Allergies Current Medications: Current Medications Acetaminophen (Acetaminophen 325 Mg Tablet) 650 mg PO Q6H PRN PRN Reason: Pain, Mild (Pain Scale 1-3) Last Admin: 07/03/23 21:26 Dose: 650 mg Acetaminophen (Acetaminophen 325 Mg Tablet) 325 mg PO Q8H PRN PRN Reason: Pain, Moderate(Pain Scale 4-6) Last Admin: 07/01/23 01:14 Dose: 325 mg Albuterol Sulfate (Albuterol Sulfate 90 Mcg 8 Gm Inhaler) 2 puff INHALE Q6H PRN PRN Reason: wheezing Amiodarone HCl (Amiodarone Hcl 200 Mg Tablet) 400 mg PO DAILY [facility] Last Admin: 07/04/23 08:39 Dose: 400 mg Cyanocobalamin (Cyanocobalamin (Vitamin B-12) 1,000 Mcg/Ml Vial) 1,000 mcg IM Q30D [facility] Last Admin: 07/01/23 09:13 Dose: 1,000 mcg Dextrose (Dextrose 50 % 25 Gm/50 Ml Syringe) 25 gm IVPUSH Q15M PRN; Protocol PRN Reason: per Hypoglycemia Standing Ord. Fluticasone/Umeclidinium/Vilanterol (Fluticasone/Umeclidinium/Vilanterol 200/62.5/25 Blst.W.Dev) 1 puff INHALE DAILY [facility] Last Admin: 07/04/23 07:49 Dose: 1 puff Gabapentin (Gabapentin 100 Mg Capsule) 100 mg PO TID [facility] Last Admin: 07/04/23 08:40 Dose: 100 mg Glucose (Glucose Gel 15 Gm Gel..Gram.) 15 gm PO Q15M PRN; Protocol PRN Reason: per Hypoglycemia Standing Ord. Promethazine HCl 12.5 mg/ (Sodium Chloride) 50.5 mls @ 202 mls/hr IV Q6H PRN PRN Reason: Nausea and Vomiting Last Infusion: 06/30/23 18:36 Dose: Infused Sodium Chloride (Ns) 1,000 mls @ 100 mls/hr IVCONT .Q10H [facility] Last Admin: 07/04/23 09:56 Dose: 100 mls/hr Insulin Glargine (Insulin Glargine,Hum.Rec.Anlog 100 Unit/Ml 10 Ml Vial) 15 unit SUBCUT BEDTIME [facility] Last Admin: 07/03/23 21:24 Dose: 1 unit Insulin Human Lispro (Insulin Lispro 100 Unit/Ml 3 Ml Vial) 0 unit SUBCUT Q6H [facility]; Protocol Last Admin: 07/04/23 11:46 Dose: Not Given Lactulose (Lactulose 20 Gm/30 Ml Solution) 30 gm PO BID [facility] Last Admin: 07/04/23 08:38 Dose: 30 gm Melatonin (Melatonin 3 Mg Tablet) 6 mg PO BEDTIME PRN PRN Reason: Insomnia Last Admin: 07/02/23 20:53 Dose: 6 mg Midodrine (Midodrine Hcl 5 Mg Tablet) 5 mg PO BID@0600,1800 [facility] Last Admin: 07/04/23 06:40 Dose: 5 mg Omeprazole (Omeprazole 20 Mg Capsule.Dr) 20 mg PO BID@0630,1630 [facility] Last Admin: 07/04/23 06:44 Dose: Not Given Ondansetron HCl (Ondansetron Hcl 4 Mg/2 Ml Vial) 4 mg IVPUSH Q8H PRN PRN Reason: Nausea and Vomiting Last Admin: 06/30/23 15:43 Dose: 4 mg Ondansetron HCl (Ondansetron Odt 4 Mg Tab.Rapdis) 8 mg TRANSLINGU TID [facility] Last Admin: 07/04/23 08:40 Dose: Not Given Oxycodone HCl (Oxycodone Hcl Immed Release 5 Mg Tablet) 5 mg PO Q8H PRN PRN Reason: Pain, Moderate(Pain Scale 4-6) Last Admin: 07/04/23 08:39 Dose: 5 mg Polyethylene Glycol (Polyethylene Glycol 3350 17 Gm Powd.Pack) 17 gm PO DAILY [facility] Last Admin: 07/04/23 08:39 Dose: 17 gm Sertraline HCl (Sertraline Hcl 100 Mg Tablet) 100 mg PO DAILY [facility] Last Admin: 07/04/23 08:39 Dose: 100 mg Sodium Chloride (0.9 % Sodium Chloride Flush 3 Ml Syringe) 3 ml IVFLUSH QSHIFT [facility] Last Admin: 07/04/23 08:40 Dose: 3 ml Trolamine Salicylate (Trolamine Salicylate 10 % Cream 85 Gm Tube) 1 appl TOPICAL BID [facility] Last Admin: 07/04/23 08:41 Dose: 1 appl Home Medications Medication Instructions Recorded Confirmed Type albuterol sulfate 90 mcg/actuation 2 puff inhalation Q6H PRN wheezing 06/27/23 06/27/23 History aerosol inhaler amiodarone 400 mg tablet 400 mg PO DAILY 06/27/23 06/27/23 History cyanocobalamin (vitamin B-12) 1,000 mcg IM Q30D 06/27/23 06/27/23 History 1,000 mcg/mL injection kit fluticasone fur. 200 mcg-umeclid 1 inh inhalation DAILY 06/27/23 06/27/23 History 62.5 mcg-vilant 25 mcg inhalat.powder (Trelegy Ellipta) gabapentin 100 mg capsule 100 mg PO TID 06/27/23 06/27/23 History lactulose 10 gram/15 mL oral 45 ml PO BID 06/27/23 06/27/23 History solution methyl salicylate 15 %-menthol 10 1 appl topical BID 06/27/23 06/27/23 History % topical cream (Muscle Rub) midodrine 10 mg tablet 5 mg PO BID 06/27/23 06/27/23 History omeprazole 20 mg capsule,delayed 20 mg PO BID 06/27/23 06/27/23 History release ondansetron HCl 4 mg tablet 8 mg PO TID 06/27/23 06/27/23 History oxycodone-acetaminophen 5 mg-325 1 tab PO Q8H PRN Pain 06/27/23 06/27/23 History mg tablet (Percocet) polyethylene glycol 3350 17 gram 17 g PO DAILY 06/27/23 06/27/23 History oral powder packet (Miralax) sertraline 50 mg tablet 100 mg PO DAILY 06/27/23 06/27/23 History spironolactone 100 mg tablet 100 mg PO BEDTIME 06/27/23 06/27/23 History Allergies Allergy/AdvReac Type Severity Reaction Status Date / Time lisinopril Allergy cough Uncoded 03/13/23 13:57 tramadol AdvReac Mild vomiting Uncoded 03/13/23 13:57 Physical Exam Vital signs: Vital Signs Temp 98.0 F 07/04/23 07:59 Pulse 56 07/04/23 07:59 Resp 16 07/04/23 07:59 BP 97/43 L 07/04/23 07:59 Pulse Ox 100 07/04/23 07:59 O2 Del Method Room Air 07/04/23 03:05 Intake & Output 07/03/23 07/04/23 07/04/23 18:59 06:59 18:59 Intake Total 340 / 750 410 / 750 100 / 100 Balance 340 / 750 410 / 750 100 / 100 Intake: Intake, Oral Amount 240 / 400 160 / 400 Intake, IV Amount 100 / 350 250 / 350 100 / 100 Albumin Human 25 % 100 ml @ 100 100 / 300 200 / 300 100 / 100 mls/hr IV Q6H [facility] Rx#: [id number] cefTRIAXone sodium 1 gm In 0.9 50 / 50 % Sodium Chloride 50 ml @ 100 mls/hr IV Q24H [facility] Rx#: [id number] Other: Meal Refused No No NPO No Yes Breakfast % Eaten 0% Lunch % Eaten 0% Dinner % Eaten 25% Number of Incontinent Voids 1 1 Number of Unmeasured Emesis 2 Episodes Urine Color Yellow Weight 89.6 kg - Constitutional Present: moderate distress - Routine HEENT Exam Head: Present: normal inspection, normocephalic Eye: Present: normal appearance ENT: Present: mucous membranes moist - Routine Neck Exam Present: supple - Routine Respiratory Exam Present: CTAB - Routine Cardiovascular Exam Cardiovascular: Present: RRR, S1, S2 - Routine Abdominal Exam Present: soft, nontender - Routine Extremities Exam Present: nontender - Routine Skin Exam Present: intact Hem/Onc Consult Result - Labs CBC & Chem 7: 07/07/23 05:43 07/09/23 05:42 Labs: Short CBC 07/04/23 Range/Units 06:01 WBC 5.0 (4.8-10.8) X10*3/uL Hgb 6.6 L* D (12.0-16.0) g/dl Hct 21.2 L D (37.0-47.0) % Plt Count 97 L D (160-400) X10*3/uL BMP 07/04/23 06:01 Sodium 129 L Potassium 4.0 Chloride 95 L Carbon Dioxide 22 BUN 50 H Creatinine 2.56 H Calcium 9.2 Assessment and Plan Patient Active problem list reviewed?: Yes (1) Anemia Status: Acute Assessment and plan: 73 year old with multiple medical problems, including end stage liver disease,hepatic encephalopathy, INAG on CKD, diabetes, presented 06/27 with mental status changes. Comorbidities include: A. Fib, CHF, hyponatremia and UTI. Noted to be significantly Anemic. Anemia work up in progress. Meanwhile pt. is doing poorly, on account of the above issues. Seems rather irreversible without a mcfp cure. Addressed option of palliative care and comfort measures. She is agreeable. PLAN: She had wanted to recieve a blood transfusion, earlier today. Being transfused. Meanwhile psych has been consulted to address pt competency. Will then make a referral to hospice. Family in agreement. Hospice referral was made. Thanks, - Time Spent With Patient Time Spent with Patient (in minutes): 30
[2023-07-04 13:01] LABS: Immature Retic Fraction 14.1 % (3.0-15.9); Retic HGB Equivalent 32.8 pg (30.0-35.0); Reticulocytes Absolute 0.069 X10*6/uL (0.026-0.095)
[2023-07-04 13:13] LABS: Lactate Dehydrogenase 119 U/L (122-220)
--- NOTE | 2023-07-04 13:58 | P.PNNP_ITS ---
Subjective Subjective Date of Service: 07/04/23 Interval history: Seen and examined, events noted Physical Exam 2 Vital Signs: Vital Signs: Last Vital Signs Temp 98.0 F 07/04/23 07:59 Pulse 56 07/04/23 07:59 Resp 16 07/04/23 07:59 BP 97/43 L 07/04/23 07:59 Pulse Ox 100 07/04/23 07:59 O2 Del Method Room Air 07/04/23 03:05 BMI result Body Mass Index 33.9 Const: Other: General: no distres Resp: CTA bilateral CVS: S1,S2,RRR GI: +BS, NT, no distention Skin: No rash Neuro: motor grossly intact Psych: appropriate affect General: cooperative, comfortable, no acute distress and lethargic O rientation/consciousness: lethargic HEENT: Other: PERRLA, no facial asymmetry; she is pale Neck: Other: ecchymosis right side of neck, no JVD Resp: Other: clear to auscultation without rales Cardio: Jugular venous distension: no JVD Rate: tachycardic Rhythm: a bnormal rhythm Heart sounds: S1 normal heart sound present and S2 normal heart sound present GI: Other: abdomen obese Extrem: Other: Bilateral LE edema 1 plus pretib Psych: Other: pt is having a hard time answering questions, saying her name or responding; she is verbalizing but appears confused , encephalopathic, tremor in RUE Mental Status: other Objective Data Labs 07/04/23 06:01 07/04/23 06:01 Labs: Laboratory Results - last 24 hr 07/03/23 07/03/23 07/03/23 16:37 17:46 20:35 WBC RBC Hgb Hct MCV MCH MCHC RDW Plt Count MPV Absolute Nucleated RBC Nucleated RBC % (auto) Smear Path Review Absolute Retic Percent Retic Immature Retic Fraction Retic Hgb Equivalent Sodium Potassium Chloride Carbon Dioxide Anion Gap BUN Creatinine Estim Creat Clear Calc Estimated GFR POC Glucose 187 H 189 H 175 H Random Glucose Calcium Lactate Dehydrogenase Blood Type Antibody Screen Crossmatch 07/04/23 07/04/23 07/04/23 05:52 06:01 11:21 WBC 5.0 RBC 2.30 L D Hgb 6.6 L* D Hct 21.2 L D MCV 92.2 MCH 28.7 MCHC 31.1 RDW 18.4 H Plt Count 97 L D MPV 12.5 H Absolute Nucleated RBC 0.000 Nucleated RBC % (auto) 0.0 Smear Path Review SEE NOTE Absolute Retic Percent Retic Immature Retic Fraction Retic Hgb Equivalent Sodium 129 L Potassium 4.0 Chloride 95 L Carbon Dioxide 22 Anion Gap 16 BUN 50 H Creatinine 2.56 H Estim Creat Clear Calc 20.6 Estimated GFR 18 POC Glucose 164 H 175 H Random Glucose 162 H Calcium 9.2 Lactate Dehydrogenase Blood Type Antibody Screen Crossmatch 07/04/23 12:49 WBC RBC Hgb Hct MCV MCH MCHC RDW Plt Count MPV Absolute Nucleated RBC Nucleated RBC % (auto) Smear Path Review Absolute Retic 0.069 Percent Retic 3.0 H Immature Retic Fraction 14.1 Retic Hgb Equivalent 32.8 Sodium Potassium Chloride Carbon Dioxide Anion Gap BUN Creatinine Estim Creat Clear Calc Estimated GFR POC Glucose Random Glucose Calcium Lactate Dehydrogenase 119 L Blood Type O Negative Antibody Screen NEGATIVE Crossmatch See Detail Microbiology Microbiology Results: Microbiology 06/27/23 20:40 Blood - Venous Blood Culture - Final No growth after 5 days. 06/27/23 20:41 Blood - Venous Blood Culture - Final No growth after 5 days. 06/27/23 20:41 Urine clean catch - Urine titus top Urine Culture - Final Escherichia coli Enterococcus faecalis Procedures Date of Service Date of Service: 07/04/23 Assessment & Plan Assessment and plan (1) Acute kidney injury: Status: Acute (2) Cirrhosis: Status: Acute (3) Hyponatremia: Status: Acute Plan INGA on CKD as [facility] labs BSL SCr 2.0 range ( sees Dr Ham) and overall doing very poorly with WRF, decr Hb, and failure to thrive REC: cont IV albumin and midrodine, the latter if SBP < 130, and track UOP/renal func; avoid NToxins HypONa: SNa 129; need to watch Need GOC discussion as overall prognosis is grim I D/W family and they have made her DNR/DNI and NO Dialysis Looking to get Hospice involved will follow w team Time Spent With Patient Time: Total time managing care of this patient today ____ minutes. Progress Note: Quality Stroke Does the patient have a stroke diagnosis?: No
[2023-07-04] MEDS: ondansetron HCL 4 MG/2 ML VIAL IVPUSH (15:01)
--- NOTE | 2023-07-04 16:02 | P.PNIM_ITS ---
Subjective Subjective Date of Service: 07/05/23 Interval History: Patient noted to be somnolent, but arousable, answer questions in 1-2 words and then fall back to sleep, complained of abdominal discomfort and nausea, no hematemesis or melena noted urine dark colored, noted to have significant drop in hematocrit and worsening renal function this morning. Review of Systems No shortness of breath, no chest pain No dizziness, no lightheadedness No urinary symptoms Physical Exam 2 Vital Signs: Vital Signs: Last Vital Signs Temp 98.1 F 07/04/23 15:08 Pulse 85 07/04/23 15:08 Resp 16 07/04/23 15:08 BP 94/57 L 07/04/23 15:08 Pulse Ox 99 07/04/23 15:08 O2 Del Method Room Air 07/04/23 15:08 BMI result Body Mass Index 33.9 Const: Other: General:? Somnolent, arousable, no acute distress Neck no JVD Resp:? CTA bilateral CVS: S1,S2,RRR GI: +BS, soft and, nontender, no distention Skin: No rash Extremities left upper extremity swollen, no redness, no warmth Neuro:? motor grossly intact Psych: appropriate affect Objective Data Active Medications Acetaminophen (Acetaminophen 325 Mg Tablet) 650 mg PO Q6H PRN PRN Reason: Pain, Mild (Pain Scale 1-3) Last Admin: 07/03/23 21:26 Dose: 650 mg Documented By: RAFAT Acetaminophen (Acetaminophen 325 Mg Tablet) 325 mg PO Q8H PRN PRN Reason: Pain, Moderate(Pain Scale 4-6) Last Admin: 07/01/23 01:14 Dose: 325 mg Documented By: ELENA Albuterol Sulfate (Albuterol Sulfate 90 Mcg 8 Gm Inhaler) 2 puff INHALE Q6H PRN PRN Reason: wheezing Amiodarone HCl (Amiodarone Hcl 200 Mg Tablet) 400 mg PO DAILY [facility] Last Admin: 07/04/23 08:39 Dose: 400 mg Documented By: ALYSSA Cyanocobalamin (Cyanocobalamin (Vitamin B-12) 1,000 Mcg/Ml Vial) 1,000 mcg IM Q30D [facility] Last Admin: 07/01/23 09:13 Dose: 1,000 mcg Documented By: HO.MOHAMER Dextrose (Dextrose 50 % 25 Gm/50 Ml Syringe) 25 gm IVPUSH Q15M PRN; Protocol PRN Reason: per Hypoglycemia Standing Ord. Fluticasone/Umeclidinium/Vilanterol (Fluticasone/Umeclidinium/Vilanterol 200/62.5/25 Blst.W.Dev) 1 puff INHALE DAILY [facility] Last Admin: 07/04/23 07:49 Dose: 1 puff Documented By: RADHA Gabapentin (Gabapentin 100 Mg Capsule) 100 mg PO TID [facility] Last Admin: 07/04/23 15:03 Dose: Not Given Documented By: ALYSSA Non-Admin Reason: Nausea Glucose (Glucose Gel 15 Gm Gel..Gram.) 15 gm PO Q15M PRN; Protocol PRN Reason: per Hypoglycemia Standing Ord. Promethazine HCl 12.5 mg/ (Sodium Chloride) 50.5 mls @ 202 mls/hr IV Q6H PRN PRN Reason: Nausea and Vomiting Last Infusion: 06/30/23 18:36 Dose: Infused Documented By: SVETA Insulin Glargine (Insulin Glargine,Hum.Rec.Anlog 100 Unit/Ml 10 Ml Vial) 15 unit SUBCUT BEDTIME [facility] Last Admin: 07/03/23 21:24 Dose: 1 unit Documented By: RAFAT Insulin Human Lispro (Insulin Lispro 100 Unit/Ml 3 Ml Vial) 0 unit SUBCUT Q6H [facility]; Protocol Last Admin: 07/04/23 11:46 Dose: Not Given Documented By: ALYSSA Non-Admin Reason: not eating Lactulose (Lactulose 20 Gm/30 Ml Solution) 30 gm PO BID [facility] Last Admin: 07/04/23 08:38 Dose: 30 gm Documented By: ALYSSA Melatonin (Melatonin 3 Mg Tablet) 6 mg PO BEDTIME PRN PRN Reason: Insomnia Last Admin: 07/02/23 20:53 Dose: 6 mg Documented By: AVELINO Midodrine (Midodrine Hcl 5 Mg Tablet) 5 mg PO BID@0600,1800 [facility] Last Admin: 07/04/23 06:40 Dose: 5 mg Documented By: LIYA Omeprazole (Omeprazole 20 Mg Bernadine.) 20 mg PO BID@0630,1630 [facility] Last Admin: 07/04/23 06:44 Dose: Not Given Documented By: LIYA Non-Admin Reason: not swallowing safely Ondansetron HCl (Ondansetron Hcl 4 Mg/2 Ml Vial) 4 mg IVPUSH Q8H PRN PRN Reason: Nausea and Vomiting Last Admin: 07/04/23 15:01 Dose: 4 mg Documented By: ALYSSA Ondansetron HCl (Ondansetron Odt 4 Mg Tab.Rapdis) 8 mg TRANSLINGU TID [facility] Last Admin: 07/04/23 15:01 Dose: Not Given Documented By: ALYSSA Non-Admin Reason: Patient Refused Oxycodone HCl (Oxycodone Hcl Immed Release 5 Mg Tablet) 5 mg PO Q8H PRN PRN Reason: Pain, Moderate(Pain Scale 4-6) Last Admin: 07/04/23 08:39 Dose: 5 mg Documented By: ALYSSA Polyethylene Glycol (Polyethylene Glycol 3350 17 Gm Powd.Pack) 17 gm PO DAILY [facility] Last Admin: 07/04/23 08:39 Dose: 17 gm Documented By: ALYSSA Sertraline HCl (Sertraline Hcl 100 Mg Tablet) 100 mg PO DAILY [facility] Last Admin: 07/04/23 08:39 Dose: 100 mg Documented By: ALYSSA Sodium Chloride (0.9 % Sodium Chloride Flush 3 Ml Syringe) 3 ml IVFLUSH QSHIFT [facility] Last Admin: 07/04/23 08:40 Dose: 3 ml Documented By: ALYSSA Trolamine Salicylate (Trolamine Salicylate 10 % Cream 85 Gm Tube) 1 appl TOPICAL BID [facility] Last Admin: 07/04/23 08:41 Dose: 1 appl Documented By: ALYSSA Labs 07/05/23 05:30 07/05/23 05:30 Labs: Laboratory Results - last 24 hr 07/03/23 07/03/23 07/03/23 16:37 17:46 20:35 MCV MCH MCHC RDW Plt Count MPV Absolute Nucleated RBC Nucleated RBC % (auto) Smear Path Review Absolute Retic Percent Retic Immature Retic Fraction Retic Hgb Equivalent Anion Gap Estim Creat Clear Calc Estimated GFR POC Glucose 187 H 189 H 175 H Random Glucose Calcium Lactate Dehydrogenase Blood Type Antibody Screen SHADY, Polyspecific Positive SHADY Work-up Crossmatch 07/04/23 07/04/23 07/04/23 05:52 06:01 11:21 MCV 92.2 MCH 28.7 MCHC 31.1 RDW 18.4 H Plt Count 97 L D MPV 12.5 H Absolute Nucleated RBC 0.000 Nucleated RBC % (auto) 0.0 Smear Path Review SEE NOTE Absolute Retic Percent Retic Immature Retic Fraction Retic Hgb Equivalent Anion Gap 16 Estim Creat Clear Calc 20.6 Estimated GFR 18 POC Glucose 164 H 175 H Random Glucose 162 H Calcium 9.2 Lactate Dehydrogenase Blood Type Antibody Screen SHADY, Polyspecific NEGATIVE Positive SHADY Work-up TNP Crossmatch 07/04/23 12:49 MCV MCH MCHC RDW Plt Count MPV Absolute Nucleated RBC Nucleated RBC % (auto) Smear Path Review Absolute Retic 0.069 Percent Retic 3.0 H Immature Retic Fraction 14.1 Retic Hgb Equivalent 32.8 Anion Gap Estim Creat Clear Calc Estimated GFR POC Glucose Random Glucose Calcium Lactate Dehydrogenase 119 L Blood Type O Negative Antibody Screen NEGATIVE SHADY, Polyspecific Positive SHDAY Work-up Crossmatch See Detail Assessment and Plan (1) Acute metabolic encephalopathy: Status: Acute (2) Acute UTI: Status: Acute Plan This is a 73-year-old female with pertinent history of liver cirrhosis, congestive heart failure unspecified ejection fraction, insulin-dependent diabetes mellitus, mood disorder, AFib on Eliquis who was brought to the emergency department for evaluation of altered mentation. # acute on chronic anemia noted to have significant drop in hematocrit from 31 on admission to 21.2 today no hematemesis or melena noted, reviewed all records from [facility] patient had melena and Eliquis was held, Endoscopies was not done since patient was not stable to undergo procedure, will obtain hemolysis workup, stool guaiac, hematology consult transfuse 1 unit of blood DC Eliquis, peripheral blood showed spherocytes suggestive of extra vascular hemolysis. #.? Acute metabolic encephalopathy due to UTI and hepatic encephalopathy in a patient with liver cirrhosis.? noted to be somnolent today answering question yes and no , falls back to sleep during conversation, finish 7 day course of antibiotic follow ammonia level Poor by mouth intake , patient and family declined G tube continue Ensure , will obtain competency eval #. UTI--finish 7 day course of ceftriaxone and amoxicillin to cover E coli and Enterococcus faecalis, blood cultures are negative no fevers, no leukocytosis follow clinical course #.? INGA versus CKD stage 3 baseline creatinine 1.3-2.? Reviewed old records from [facility] being followed by Dr. Ham as outpatient Creatinine bumped up today, receiving IV albumin and midodrine all diuretics on hold being followed by Nephrology poor prognosis , patient has declined hemodialysis in the past #.? Hyponatremia d/t cirrhosis. Sodium 129 today, improved to Sodium 130- 134,seems chronic, continue fluid restriction and follow levels. #.? Insulin-dependent diabetes mellitus with hyperglycemia.? Blood sugars stable continue Lantus and insulin sliding scale , poor by mouth intake monitor blood sugar closely encourage Ensure #.? Liver cirrhosis, from BLOOM. Continue lactulose , diuretics on hold as above #.? Paroxysmal atrial fibrillation Rate controlled , continue amiodarone ,dc Eliquis due to significant anemia. #.? Congestive heart failure, unspecified ejection fraction.? No decompensation during admission. Diuretics on hold since appears euvolemic and has soft blood pressures. #.? Mood disorder.? Continue home mood stabilizers. DVT prophylaxis: Compression boots DNR/DNI.? Had family meeting with patient's son Gregory Porter at bedside since yesterday patient desired that she does not want to continue to live, but today patient responses are vague, she wanted blood transfusion, But was not very clear about hospice, son met with hospice and will get more information. Overall prognosis is poor. Need continued inpatient hospitalization for management of acute on chronic kidney disease, significant anemia requiring blood transfusion. Time Spent With Patient Time: Total time managing care of this patient today ____ minutes. Quality Stroke Does the patient have a stroke diagnosis?: No VTE Prior VTE?: No VTE Risk Level:: Medical - moderate - high VTE Device Contraindication: Treatment Not Indicated VTE Drug Contraindication: N/A - Med Ordered
[2023-07-04 16:07] LABS: OBS Int Ctl Valid YES; OBS1 POSITIVE (NEGATIVE)
[2023-07-04 17:15] LABS: Glucose, Whole Blood 175 mg/dL (60-115)
[2023-07-04 17:42] LABS: Haptoglobin 73 MG/DL ((30-200))
[2023-07-04] MEDS: Omeprazole 20 MG CAPSULE.DR PO (17:55)
[2023-07-04 20:33] LABS: Glucose, Whole Blood 165 mg/dL (60-115)
[2023-07-04] MEDS: Ondansetron ODT 4 MG TAB.RAPDIS 8 MG TRANSLINGU (21:20)
[2023-07-05] MEDS: 0.9 % Sodium Chloride Flush 3 ML SYRINGE IVFLUSH ×4 (00:17→21:08)
[2023-07-05 03:56] VITALS: BP 120/58; PULSE 61; RESP 18; TEMP 35.7; O2SAT 100
[2023-07-05 05:50] LABS: Hematocrit 24.5 % (37.0-47.0); Mean Corpuscular HGB Conc 32.7 g/dl (31.0-35.0); Mean Corpuscular Hemoglobin 29.7 pg (27.0-33.0); Mean Corpuscular Volume 91.1 fL (80.0-98.0); Mean Platelet Volume 12.3 fL (9.4-12.3); Platelet Count 101 X10*3/uL (160-400); Red Blood Count 2.69 X10*6/uL (4.20-5.50); Red Cell Distribution Width 17.9 % (11.0-16.0); White Blood Count 6.1 X10*3/uL (4.8-10.8)
[2023-07-05 05:59] LABS: Ammonia 47 umol/L (13-55)
[2023-07-05 06:05] LABS: Alanine Aminotransferase 21 U/L (0-31); Albumin Level 3.7 g/dL (3.5-5.0); Alkaline Phosphatase 125 U/L (39-117); Anion Gap 15 (12-20); Aspartate Amino Transferase 79 U/L (5-31); Bilirubin Direct 2.1 mg/dL (0.0-0.5); Bilirubin Total 3.2 mg/dL (0.0-1.0); Blood Urea Nitrogen 54 mg/dL (9-16); Calcium 9.6 mg/dL (8.4-10.2); Carbon Dioxide 21 mmol/L (22-29); Chloride 98 mmol/L (96-108); Creatinine Clr Calc Pharmacy 16.8; Estimated Glomerular Filt Rate 14; Glucose Random 141 mg/dL (60-115); Potassium 4.2 mmol/L (3.3-5.1); Sodium 130 mmol/L (135-145); Total Protein 6.3 g/dL (6.5-8.0)
[2023-07-05 06:15] LABS: Glucose, Whole Blood 132 mg/dL (60-115)
--- NOTE | 2023-07-05 07:49 | P.CDIM_ITS ---
PROVIDER RESPONSE TEXT: To clarify, the appropriate diagnosis supported by the clinical indicators: Deep tissue injury buttock: Deep tissue injury bilateral buttocks QUERY TEXT: PHYSICIAN'S DOCUMENTATION REQUEST Date of Query: 07/03/2023 08:30 AM EDT Patient Name: Bella Porter Admit Date: 06/28/2023 Dear Odilia Penaloza, A review of the medical record indicates additional documentation may be needed. Please review below and update the documentation accordingly. Clinical Indicators: Wound assessment 07/02 - DTI buttock Dark red Foam dressing Based on the above, could you please provide further information regarding the ulcer/wound/injury: Deep tissue injury buttock right, left, bilateral or other Other please specify Other (explain)Clinically unable to determine (explain)Thank you, Jeannette Parham, CCS, CDIS Use of terms such as suspected, likely, concern for, or probable (associated with a specific diagnosi s that is being evaluated, monitored, or treated as if it exists) are acceptable and can be coded in the inpatient se tting, when documented at the time of discharge. Please use your independent medical judgment in providing your response. THIS QUERY IS PART OF THE PERMANENT MEDICAL RECORD
[2023-07-05 07:53] VITALS: BP 98/42; PULSE 82; RESP 18; TEMP 36; O2SAT 100
[2023-07-05] MEDS: Fluticasone/Umeclidinium/Vilanterol 200/62.5/25 BLST.W.DEV 1 PUFF INHALE (07:59)
[2023-07-05 08:02] VITALS: PULSE 80; RESP 16; O2SAT 99
[2023-07-05] MEDS: Midodrine HCl 5 MG TABLET PO (08:27)
[2023-07-05] MEDS: Sertraline HCL 100 MG TABLET PO (08:28)
[2023-07-05] MEDS: Gabapentin 100 MG CAPSULE PO ×3 (08:31→21:07)
[2023-07-05] MEDS: Amiodarone HCL 200 MG TABLET 400 MG PO (08:31)
[2023-07-05] MEDS: Omeprazole 20 MG CAPSULE.DR PO (08:31)
[2023-07-05] MEDS: Lactulose 20 GM/30 ML SOLUTION 30 GM PO ×2 (08:33→21:07)
[2023-07-05] MEDS: polyethylene glycoL 3350 17 GM POWD.PACK PO (08:38)
--- NOTE | 2023-07-05 11:01 | MHC.CLN ---
F/U DIET=NDD3 CONSISTENCY. SUPPLEMENT ENSURE TID PROVIDES 1050 KCALS, 60 G PROTEIN. INTAKE CONTINUES POOR, USUALLY 0-25%, NO FEEDING TUBE, NO DIALYSIS PER PATIENT/FAMILY. REQUIRES 1:1 ASSISTANCE WITH FEEDING. DTI TO BILATERAL BUTTOCKS. CONTINUE TO PROVIDE ASSISTANCE WITH FOOD/MEALS AND ENCOURAGE PO INTAKE ABLE. FOLLOW FOR PLAN OF CARE.
[2023-07-05] MEDS: Trolamine Salicylate 10 % Cream 85 GM TUBE 1 APPL TOPICAL ×2 (11:52→22:12)
[2023-07-05] MEDS: oxyCODONE HCl Immed Release 5 MG TABLET PO (11:52)
[2023-07-05 12:01] LABS: Glucose, Whole Blood 149 mg/dL (60-115)
--- NOTE | 2023-07-05 13:44 | MHC.CM.PN ---
Emr reviewed, per hospitalist plan for psych consult for competency, antic hcp may be invoked and hospice/foster parent, family report they are unable to care for pt at home and do not have funds to pp for room & board, fs waiting for pt's son/hcp to bring in required documents for mh ltc demetrius, cm will cont to follow d/c needs.
--- NOTE | 2023-07-05 14:12 | MHC.SLORD ---
Speech Language Pathology Order Status: Attempted to see pt for f/u this morning, pt refusing PO trials despite encouragement. Per MD, pt has been somnolent, but arousable. Pt is currently on a chopped (NDD3) diet with thin liquids, pills whole in puree, requiring 1:1 assistance feeding. Pt was on dysphagia advanced diet at SNF previously. SHIPFITTER APPRENTICE will continue to follow as needed during hospitalization.
--- NOTE | 2023-07-05 14:30 | P.PNNP_ITS ---
Subjective Subjective Date of Service: 07/05/23 Interval history: ongoing GOC discussions Physical Exam 2 Vital Signs: Vital Signs: Last Vital Signs Temp 96.8 F 07/05/23 07:53 Pulse 80 07/05/23 08:02 Resp 16 07/05/23 08:02 BP 98/42 L 07/05/23 07:53 Pulse Ox 100 07/05/23 07:53 O2 Del Method Room Air 07/05/23 07:53 BMI result Body Mass Index 33.9 Const: Other: General: no distres Resp: CTA bilateral CVS: S1,S2,RRR GI: +BS, NT, no distention Skin: No rash Neuro: motor grossly intact Psych: appropriate affect Objective Data Labs 07/05/23 05:30 07/05/23 05:30 Labs: Laboratory Results - last 24 hr 07/04/23 07/04/23 07/04/23 06:01 12:49 15:00 WBC RBC Hgb Hct MCV MCH MCHC RDW Plt Count MPV Absolute Nucleated RBC Nucleated RBC % (auto) Haptoglobin 73 Sodium Potassium Chloride Carbon Dioxide Anion Gap BUN Creatinine Estim Creat Clear Calc Estimated GFR POC Glucose Random Glucose Calcium Total Bilirubin Direct Bilirubin AST ALT Alkaline Phosphatase Ammonia Total Protein Albumin Stool Occult Blood POSITIVE Blood Type O Negative Antibody Screen NEGATIVE SHADY, Polyspecific NEGATIVE Positive SHADY Work-up TNP Crossmatch See Detail 07/04/23 07/04/23 07/05/23 17:09 20:07 05:30 WBC 6.1 RBC 2.69 L Hgb 8.0 L D Hct 24.5 L MCV 91.1 MCH 29.7 MCHC 32.7 RDW 17.9 H Plt Count 101 L MPV 12.3 Absolute Nucleated RBC 0.000 Nucleated RBC % (auto) 0.0 Haptoglobin Sodium 130 L Potassium 4.2 Chloride 98 Carbon Dioxide 21 L Anion Gap 15 BUN 54 H Creatinine 3.13 H Estim Creat Clear Calc 16.8 Estimated GFR 14 POC Glucose 175 H 165 H Random Glucose 141 H Calcium 9.6 Total Bilirubin 3.2 H Direct Bilirubin 2.1 H AST 79 H ALT 21 Alkaline Phosphatase 125 H Ammonia 47 Total Protein 6.3 L Albumin 3.7 Stool Occult Blood Blood Type Antibody Screen SHADY, Polyspecific Positive SHADY Work-up Crossmatch 07/05/23 07/05/23 06:11 11:31 WBC RBC Hgb Hct MCV MCH MCHC RDW Plt Count MPV Absolute Nucleated RBC Nucleated RBC % (auto) Haptoglobin Sodium Potassium Chloride Carbon Dioxide Anion Gap BUN Creatinine Estim Creat Clear Calc Estimated GFR POC Glucose 132 H 149 H Random Glucose Calcium Total Bilirubin Direct Bilirubin AST ALT Alkaline Phosphatase Ammonia Total Protein Albumin Stool Occult Blood Blood Type Antibody Screen SHADY, Polyspecific Positive SHADY Work-up Crossmatch Microbiology Microbiology Results: Microbiology 06/27/23 20:40 Blood - Venous Blood Culture - Final No growth after 5 days. 06/27/23 20:41 Blood - Venous Blood Culture - Final No growth after 5 days. 06/27/23 20:41 Urine clean catch - Urine titus top Urine Culture - Final Escherichia coli Enterococcus faecalis Procedures Date of Service Date of Service: 07/05/23 Assessment & Plan Assessment and plan (1) Acute kidney injury: Status: Acute (2) Cirrhosis: Status: Acute (3) Hyponatremia: Status: Acute Plan INGA on CKD with BL SCr 2.0 range ( sees Dr Ham) and overall doing very poorly with failure to thrive in the setting of multiorgan system failure with cirrhosis. Plan: - conservative approch. GOC discussions had, pt DNR DNI NO dialysis. - Looking to get Hospice involved - fluid restrict as able - avoid diuresis Time Spent With Patient Time: Total time managing care of this patient today ____ minutes. Progress Note: Quality Stroke Does the patient have a stroke diagnosis?: No
[2023-07-05 15:24] VITALS: BP 113/46; PULSE 61; RESP 18; TEMP 36.3; O2SAT 100
--- NOTE | 2023-07-05 15:32 | HO.PM.IMPN ---
Subjective Subjective Date of Service: 07/05/23 Interval History: More awake alert this morning requesting help for breakfast, no events overnight denies nausea, moving bowels, no fevers, no chills no other acute issues overnight renal function continued to worsen. Review of Systems All other system reviewed and negative. Physical Exam Vital Signs: Vital Signs: Last Vital Signs Temp 97.4 F 07/05/23 15:24 Pulse 61 07/05/23 15:24 Resp 18 07/05/23 15:24 BP 113/46 L 07/05/23 15:24 Pulse Ox 100 07/05/23 15:24 O2 Del Method Room Air 07/05/23 15:24 BMI result Body Mass Index 33.9 Const: Other: General:? Awake alert in no acute distress answering questions appropriately Neck no JVD Resp:? CTA bilateral CVS: S1,S2,RRR GI: +BS, soft and, nontender, no distention Skin: No rash Extremities no edema Neuro:? motor grossly intact Psych: appropriate affect Objective Data Active Medications Acetaminophen (Acetaminophen 325 Mg Tablet) 650 mg PO Q6H PRN PRN Reason: Pain, Mild (Pain Scale 1-3) Last Admin: 07/03/23 21:26 Dose: 650 mg Documented By: RAFAT Acetaminophen (Acetaminophen 325 Mg Tablet) 325 mg PO Q8H PRN PRN Reason: Pain, Moderate(Pain Scale 4-6) Last Admin: 07/01/23 01:14 Dose: 325 mg Documented By: CASTILNawaf Albuterol Sulfate (Albuterol Sulfate 90 Mcg 8 Gm Inhaler) 2 puff INHALE Q6H PRN PRN Reason: wheezing Amiodarone HCl (Amiodarone Hcl 200 Mg Tablet) 400 mg PO DAILY [facility] Last Admin: 07/05/23 08:31 Dose: 400 mg Documented By: GRAZIC Cyanocobalamin (Cyanocobalamin (Vitamin B-12) 1,000 Mcg/Ml Vial) 1,000 mcg IM Q30D [facility] Last Admin: 07/01/23 09:13 Dose: 1,000 mcg Documented By: MOHJOS Dextrose (Dextrose 50 % 25 Gm/50 Ml Syringe) 25 gm IVPUSH Q15M PRN; Protocol PRN Reason: per Hypoglycemia Standing Ord. Fluticasone/Umeclidinium/Vilanterol (Fluticasone/Umeclidinium/Vilanterol 200/62.5/25 Blst.W.Dev) 1 puff INHALE DAILY [facility] Last Admin: 07/05/23 07:59 Dose: 1 puff Documented By: RADHA Gabapentin (Gabapentin 100 Mg Capsule) 100 mg PO TID [facility] Last Admin: 07/05/23 15:19 Dose: 100 mg Documented By: VILMA Glucose (Glucose Gel 15 Gm Gel..Gram.) 15 gm PO Q15M PRN; Protocol PRN Reason: per Hypoglycemia Standing Ord. Promethazine HCl 12.5 mg/ (Sodium Chloride) 50.5 mls @ 202 mls/hr IV Q6H PRN PRN Reason: Nausea and Vomiting Last Infusion: 07/04/23 21:00 Dose: Infused Documented By: RUSSELL Insulin Glargine (Insulin Glargine,Hum.Rec.Anlog 100 Unit/Ml 10 Ml Vial) 15 unit SUBCUT BEDTIME [facility] Last Admin: 07/04/23 21:15 Dose: Not Given Documented By: RUSSELL Non-Admin Reason: Physician Approved Insulin Human Lispro (Insulin Lispro 100 Unit/Ml 3 Ml Vial) 0 unit SUBCUT Q6H [facility]; Protocol Last Admin: 07/05/23 11:56 Dose: Not Given Documented By: VILMA Non-Admin Reason: No Insulin Coverage Lactulose (Lactulose 20 Gm/30 Ml Solution) 30 gm PO BID [facility] Last Admin: 07/05/23 08:33 Dose: 30 gm Documented By: VILMA Melatonin (Melatonin 3 Mg Tablet) 6 mg PO BEDTIME PRN PRN Reason: Insomnia Last Admin: 07/02/23 20:53 Dose: 6 mg Documented By: AVELINO Midodrine (Midodrine Hcl 5 Mg Tablet) 5 mg PO BID@0600,1800 [facility] Last Admin: 07/05/23 08:27 Dose: 5 mg Documented By: VILMA Omeprazole (Omeprazole 20 Mg Capsule.) 20 mg PO BID@0630,1630 [facility] Last Admin: 07/05/23 08:31 Dose: 20 mg Documented By: VILMA Ondansetron HCl (Ondansetron Hcl 4 Mg/2 Ml Vial) 4 mg IVPUSH Q8H PRN PRN Reason: Nausea and Vomiting Last Admin: 07/04/23 15:01 Dose: 4 mg Documented By: ALYSSA Ondansetron HCl (Ondansetron Odt 4 Mg Tab.Rapdis) 4 mg TRANSLINGU TID [facility] Last Admin: 07/05/23 15:22 Dose: Not Given Documented By: VILMA Non-Admin Reason: Hold per M.D. Oxycodone HCl (Oxycodone Hcl Immed Release 5 Mg Tablet) 5 mg PO Q8H PRN PRN Reason: Pain, Moderate(Pain Scale 4-6) Last Admin: 07/05/23 11:52 Dose: 5 mg Documented By: VILMA Polyethylene Glycol (Polyethylene Glycol 3350 17 Gm Powd.Pack) 17 gm PO DAILY [facility] Last Admin: 07/05/23 08:38 Dose: 17 gm Documented By: VILMA Sertraline HCl (Sertraline Hcl 100 Mg Tablet) 100 mg PO DAILY [facility] Last Admin: 07/05/23 08:28 Dose: 100 mg Documented By: VILMA Sodium Chloride (0.9 % Sodium Chloride Flush 3 Ml Syringe) 3 ml IVFLUSH QSHIFT [facility] Last Admin: 07/05/23 15:23 Dose: 3 ml Documented By: VILMA Trolamine Salicylate (Trolamine Salicylate 10 % Cream 85 Gm Tube) 1 appl TOPICAL BID [facility] Last Admin: 07/05/23 11:52 Dose: 1 appl Documented By: VILMA Labs 07/05/23 05:30 07/05/23 05:30 Labs: Laboratory Results - last 24 hr 07/04/23 07/04/23 07/04/23 12:49 15:00 17:09 MCV MCH MCHC RDW Plt Count MPV Absolute Nucleated RBC Nucleated RBC % (auto) Haptoglobin 73 Anion Gap Estim Creat Clear Calc Estimated GFR POC Glucose 175 H Random Glucose Calcium Total Bilirubin Direct Bilirubin AST ALT Alkaline Phosphatase Ammonia Total Protein Albumin Stool Occult Blood POSITIVE Crossmatch See Detail 07/04/23 07/05/23 07/05/23 20:07 05:30 06:11 MCV 91.1 MCH 29.7 MCHC 32.7 RDW 17.9 H Plt Count 101 L MPV 12.3 Absolute Nucleated RBC 0.000 Nucleated RBC % (auto) 0.0 Haptoglobin Anion Gap 15 Estim Creat Clear Calc 16.8 Estimated GFR 14 POC Glucose 165 H 132 H Random Glucose 141 H Calcium 9.6 Total Bilirubin 3.2 H Direct Bilirubin 2.1 H AST 79 H ALT 21 Alkaline Phosphatase 125 H Ammonia 47 Total Protein 6.3 L Albumin 3.7 Stool Occult Blood Crossmatch 07/05/23 11:31 MCV MCH MCHC RDW Plt Count MPV Absolute Nucleated RBC Nucleated RBC % (auto) Haptoglobin Anion Gap Estim Creat Clear Calc Estimated GFR POC Glucose 149 H Random Glucose Calcium Total Bilirubin Direct Bilirubin AST ALT Alkaline Phosphatase Ammonia Total Protein Albumin Stool Occult Blood Crossmatch Assessment and Plan (1) Acute metabolic encephalopathy: Status: Acute (2) Acute UTI: Status: Acute Plan This is a 73-year-old female with pertinent history of liver cirrhosis, congestive heart failure unspecified ejection fraction, insulin-dependent diabetes mellitus, mood disorder, AFib on Eliquis who was brought to the emergency department for evaluation of altered mentation. # acute on chronic anemia , hematocrit dropped from 31 on admission to 21.2 07/04 ,no hematemesis or melena noted, reviewed all records from [facility] patient had melena, Eliquis was held, Endoscopy not done since patient was not stable to undergo procedure Normal hapto,LDH , less likely hemolysis, stool guaiac positive, hematocrit improved to 24.5 with 1 unit of packed RBC, Eliquis discontinued , follow CBC being followed by Hematology #.? Acute metabolic encephalopathy due to UTI and hepatic encephalopathy in a patient with liver cirrhosis.? More awake alert this morning, fluctuating alertness, question related to narcotic medication and zofran, and worsening renal function, ammonia normal, finish course of antibiotic for UTI, liver enzymes improving Poor by mouth intake , patient and family declined G tube continue Ensure , follow competency eval #. UTI--finish 7 day course of ceftriaxone and amoxicillin to cover E coli and Enterococcus faecalis, blood cultures are negative no fevers, no leukocytosis follow clinical course #.? INGA versus CKD stage 3 baseline creatinine 1.3-2.? Reviewed old records from [facility] being followed by Dr. Ham as outpatient Creatinine worsening gradually,s/p IV albumin , continue midodrine, all diuretics on hold being followed by Nephrology poor prognosis , patient has declined hemodialysis in the past, follow renal function avoid hypotension and nephrotoxic medications #.? Hyponatremia d/t cirrhosis. Sodium 130 today, improved to Sodium 130-134,seems chronic, continue fluid restriction and follow levels. #.? Insulin-dependent diabetes mellitus with hyperglycemia.? Blood sugars stable continue Lantus and insulin sliding scale , poor by mouth intake monitor blood sugar closely encourage Ensure #.? Liver cirrhosis, from BLOOM. Continue lactulose , diuretics on hold as above, LFTs stable #.? Paroxysmal atrial fibrillation Rate controlled , continue amiodarone ,dc Eliquis due to significant anemia. #.? Congestive heart failure, unspecified ejection fraction.? No decompensation during admission. Diuretics on hold since appears euvolemic and has soft blood pressures. #.? Mood disorder.? Continue home mood stabilizers. DVT prophylaxis: Compression boots DNR/DNI.? Had family meeting with patient's son Gregory Porter at bedside on 07/04 at present continue DNR DNI, will obtain psych eval for competency . Overall prognosis is poor. Need continued inpatient hospitalization for management of acute on chronic kidney disease, significant anemia requiring blood transfusion. Time Spent With Patient Time: Total time managing care of this patient today ____ minutes. Quality Stroke Does the patient have a stroke diagnosis?: No VTE Prior VTE?: No VTE Risk Level:: Medical - moderate - high VTE Device Contraindication: Treatment Not Indicated VTE Drug Contraindication: N/A - Med Ordered
[2023-07-05 16:23] LABS: Glucose, Whole Blood 168 mg/dL (60-115)
[2023-07-05 19:11] VITALS: BP 134/53; PULSE 59; RESP 14; TEMP 36.3; O2SAT 99
[2023-07-05 21:14] LABS: Glucose, Whole Blood 164 mg/dL (60-115)
[2023-07-05] MEDS: Insulin Glargine,Hum.rec.anlog 100 UNIT/ML 10 ML VIAL 15 UNIT SUBCUT (22:14)
[2023-07-05] MEDS: Insulin Lispro 100 UNIT/ML 3 ML VIAL SUBCUT (23:52)
[2023-07-05 23:53] LABS: Glucose, Whole Blood 162 mg/dL (60-115)
[2023-07-06 03:36] VITALS: BP 121/55; PULSE 60; RESP 16; TEMP 36; O2SAT 100
[2023-07-06] MEDS: Omeprazole 20 MG CAPSULE.DR PO ×2 (05:43→15:37)
[2023-07-06] MEDS: Midodrine HCl 5 MG TABLET PO ×2 (05:43→16:57)
[2023-07-06 05:46] LABS: Glucose, Whole Blood 134 mg/dL (60-115)
[2023-07-06 07:19] VITALS: BP 110/54; PULSE 60; RESP 18; TEMP 36; O2SAT 99
[2023-07-06 07:50] LABS: Glucose, Whole Blood 140 mg/dL (60-115)
[2023-07-06] MEDS: Fluticasone/Umeclidinium/Vilanterol 200/62.5/25 BLST.W.DEV 1 PUFF INHALE (07:58)
[2023-07-06 07:59] VITALS: PULSE 60; RESP 16; O2SAT 100
[2023-07-06 08:19] LABS: Hematocrit 23.9 % (37.0-47.0); Hemoglobin 7.8 g/dl (12.0-16.0)
[2023-07-06 08:30] LABS: Anion Gap 13 (12-20); Blood Urea Nitrogen 57 mg/dL (9-16); Calcium 9.7 mg/dL (8.4-10.2); Carbon Dioxide 23 mmol/L (22-29); Chloride 99 mmol/L (96-108); Estimated Glomerular Filt Rate 18; Glucose Random 131 mg/dL (60-115); Potassium 3.6 mmol/L (3.3-5.1); Sodium 131 mmol/L (135-145)
[2023-07-06] MEDS: Amiodarone HCL 200 MG TABLET 400 MG PO (08:58)
[2023-07-06] MEDS: Lactulose 20 GM/30 ML SOLUTION 30 GM PO ×2 (08:58→21:40)
[2023-07-06] MEDS: Gabapentin 100 MG CAPSULE PO ×3 (08:58→21:40)
[2023-07-06] MEDS: polyethylene glycoL 3350 17 GM POWD.PACK PO (08:58)
[2023-07-06] MEDS: Sertraline HCL 100 MG TABLET PO (08:58)
[2023-07-06] MEDS: oxyCODONE HCl Immed Release 5 MG TABLET PO ×2 (08:59→16:57)
[2023-07-06] MEDS: 0.9 % Sodium Chloride Flush 3 ML SYRINGE IVFLUSH ×3 (08:59→21:41)
[2023-07-06] MEDS: Trolamine Salicylate 10 % Cream 85 GM TUBE 1 APPL TOPICAL ×2 (09:00→21:41)
[2023-07-06] MEDS: Acetaminophen 325 MG TABLET 650 MG PO (11:15)
[2023-07-06 11:24] LABS: Glucose, Whole Blood 169 mg/dL (60-115)
--- NOTE | 2023-07-06 12:08 | P.PNNP_ITS ---
Subjective Subjective Date of Service: 07/06/23 Interval history: no acute events comfortable. Physical Exam 2 Vital Signs: Vital Signs: Last Vital Signs Temp 96.8 F 07/06/23 07:19 Pulse 60 07/06/23 07:59 Resp 16 07/06/23 07:59 BP 110/54 L 07/06/23 07:19 Pulse Ox 99 07/06/23 07:19 O2 Del Method Room Air 07/06/23 07:19 BMI result Body Mass Index 33.9 Const: Other: General: no distres Resp: CTA bilateral CVS: S1,S2,RRR GI: +BS, NT, no distention Skin: No rash Neuro: motor grossly intact Psych: appropriate affect Objective Data Labs 07/06/23 07:57 07/06/23 07:57 Labs: Laboratory Results - last 24 hr 07/05/23 07/05/23 07/05/23 16:20 21:10 23:47 Hgb Hct Sodium Potassium Chloride Carbon Dioxide Anion Gap BUN Creatinine Estim Creat Clear Calc Estimated GFR POC Glucose 168 H 164 H 162 H Random Glucose Calcium 07/06/23 07/06/23 07/06/23 05:41 07:46 07:57 Hgb 7.8 L Hct 23.9 L Sodium 131 L Potassium 3.6 Chloride 99 Carbon Dioxide 23 Anion Gap 13 BUN 57 H Creatinine 2.63 H Estim Creat Clear Calc 20.0 Estimated GFR 18 POC Glucose 134 H 140 H Random Glucose 131 H Calcium 9.7 07/06/23 11:09 Hgb Hct Sodium Potassium Chloride Carbon Dioxide Anion Gap BUN Creatinine Estim Creat Clear Calc Estimated GFR POC Glucose 169 H Random Glucose Calcium Microbiology Microbiology Results: Microbiology 06/27/23 20:40 Blood - Venous Blood Culture - Final No growth after 5 days. 06/27/23 20:41 Blood - Venous Blood Culture - Final No growth after 5 days. 06/27/23 20:41 Urine clean catch - Urine titus top Urine Culture - Final Escherichia coli Enterococcus faecalis Procedures Date of Service Date of Service: 07/06/23 Assessment & Plan Assessment and plan (1) Acute kidney injury: Status: Acute (2) Cirrhosis: Status: Acute (3) Hyponatremia: Status: Acute Plan INGA on CKD with BL SCr 2.0 range ( sees Dr Ham) and overall doing very poorly with failure to thrive in the setting of multiorgan system failure with cirrhosis. Plan: - conservative approch. GOC discussions had, pt DNR DNI NO dialysis. - IVF if PO intake is poor. - avoid diuresis Time Spent With Patient Time: Total time managing care of this patient today ____ minutes. Progress Note: Quality Stroke Does the patient have a stroke diagnosis?: No
[2023-07-06] MEDS: Insulin Lispro 100 UNIT/ML 3 ML VIAL SUBCUT (12:14)
--- NOTE | 2023-07-06 13:08 | HO.PM.IMPN ---
Subjective Subjective Date of Service: 07/06/23 Interval History: Awake alert this morning eating breakfast requesting for help, requesting for stronger pain medications for generalized pain mostly in legs, no overnight events no fevers no chills, denies nausea, no vomiting, no abdominal pain, no diarrhea Review of Systems All other system reviewed and negative Physical Exam Vital Signs: Vital Signs: Last Vital Signs Temp 96.8 F 07/06/23 07:19 Pulse 60 07/06/23 07:59 Resp 16 07/06/23 07:59 BP 110/54 L 07/06/23 07:19 Pulse Ox 99 07/06/23 07:19 O2 Del Method Room Air 07/06/23 07:19 BMI result Body Mass Index 33.9 Const: Other: General:? Awake alert in no acute distress answering questions appropriately Neck no JVD Resp:? CTA bilateral CVS: S1,S2,RRR GI: +BS, soft and, nontender, no distention Skin: No rash Extremities no edema Neuro:? motor grossly intact Psych: appropriate affect Objective Data Active Medications Acetaminophen (Acetaminophen 325 Mg Tablet) 650 mg PO Q6H PRN PRN Reason: Pain, Mild (Pain Scale 1-3) Last Admin: 07/06/23 11:15 Dose: 650 mg Documented By: WYATT Acetaminophen (Acetaminophen 325 Mg Tablet) 325 mg PO Q8H PRN PRN Reason: Pain, Moderate(Pain Scale 4-6) Last Admin: 07/01/23 01:14 Dose: 325 mg Documented By: CASTILNawaf Albuterol Sulfate (Albuterol Sulfate 90 Mcg 8 Gm Inhaler) 2 puff INHALE Q6H PRN PRN Reason: wheezing Amiodarone HCl (Amiodarone Hcl 200 Mg Tablet) 400 mg PO DAILY [facility] Last Admin: 07/06/23 08:58 Dose: 400 mg Documented By: WYATT Cyanocobalamin (Cyanocobalamin (Vitamin B-12) 1,000 Mcg/Ml Vial) 1,000 mcg IM Q30D [facility] Last Admin: 07/01/23 09:13 Dose: 1,000 mcg Documented By: RUSSELL Dextrose (Dextrose 50 % 25 Gm/50 Ml Syringe) 25 gm IVPUSH Q15M PRN; Protocol PRN Reason: per Hypoglycemia Standing Ord. Fluticasone/Umeclidinium/Vilanterol (Fluticasone/Umeclidinium/Vilanterol 200/62.5/25 Blst.W.Dev) 1 puff INHALE DAILY [facility] Last Admin: 07/06/23 07:58 Dose: 1 puff Documented By: RADHA Gabapentin (Gabapentin 100 Mg Capsule) 100 mg PO TID [facility] Last Admin: 07/06/23 08:58 Dose: 100 mg Documented By: WYATT Glucose (Glucose Gel 15 Gm Gel..Gram.) 15 gm PO Q15M PRN; Protocol PRN Reason: per Hypoglycemia Standing Ord. Promethazine HCl 12.5 mg/ (Sodium Chloride) 50.5 mls @ 202 mls/hr IV Q6H PRN PRN Reason: Nausea and Vomiting Last Infusion: 07/04/23 21:00 Dose: Infused Documented By: RUSSELL Insulin Glargine (Insulin Glargine,Hum.Rec.Anlog 100 Unit/Ml 10 Ml Vial) 15 unit SUBCUT BEDTIME [facility] Last Admin: 07/05/23 22:14 Dose: 15 unit Documented By: SARAH Insulin Human Lispro (Insulin Lispro 100 Unit/Ml 3 Ml Vial) 0 unit SUBCUT Q6H [facility]; Protocol Last Admin: 07/06/23 12:14 Dose: 2 unit Documented By: WYATT Lactulose (Lactulose 20 Gm/30 Ml Solution) 30 gm PO BID [facility] Last Admin: 07/06/23 08:58 Dose: 30 gm Documented By: WYATT Melatonin (Melatonin 3 Mg Tablet) 6 mg PO BEDTIME PRN PRN Reason: Insomnia Last Admin: 07/02/23 20:53 Dose: 6 mg Documented By: AVELINO Midodrine (Midodrine Hcl 5 Mg Tablet) 5 mg PO BID@0600,1800 [facility] Last Admin: 07/06/23 05:43 Dose: 5 mg Documented By: SARAH Omeprazole (Omeprazole 20 Mg Capsule.) 20 mg PO BID@0630,1630 [facility] Last Admin: 07/06/23 05:43 Dose: 20 mg Documented By: SARAH Ondansetron HCl (Ondansetron Hcl 4 Mg/2 Ml Vial) 4 mg IVPUSH Q8H PRN PRN Reason: Nausea and Vomiting Last Admin: 07/04/23 15:01 Dose: 4 mg Documented By: ALYSSA Oxycodone HCl (Oxycodone Hcl Immed Release 5 Mg Tablet) 5 mg PO Q8H PRN PRN Reason: Pain, Moderate(Pain Scale 4-6) Last Admin: 07/06/23 08:59 Dose: 5 mg Documented By: WYATT Polyethylene Glycol (Polyethylene Glycol 3350 17 Gm Powd.Pack) 17 gm PO DAILY [facility] Last Admin: 07/06/23 08:58 Dose: 17 gm Documented By: WYATT Sertraline HCl (Sertraline Hcl 100 Mg Tablet) 100 mg PO DAILY [facility] Last Admin: 07/06/23 08:58 Dose: 100 mg Documented By: WYATT Sodium Chloride (0.9 % Sodium Chloride Flush 3 Ml Syringe) 3 ml IVFLUSH QSHIFT [facility] Last Admin: 07/06/23 08:59 Dose: 3 ml Documented By: WYATT Trolamine Salicylate (Trolamine Salicylate 10 % Cream 85 Gm Tube) 1 appl TOPICAL BID [facility] Last Admin: 07/06/23 09:00 Dose: 1 appl Documented By: WYATT Labs 07/06/23 07:57 07/06/23 07:57 Labs: Laboratory Results - last 24 hr 07/05/23 07/05/23 07/05/23 16:20 21:10 23:47 Anion Gap Estim Creat Clear Calc Estimated GFR POC Glucose 168 H 164 H 162 H Random Glucose Calcium 07/06/23 07/06/23 07/06/23 05:41 07:46 07:57 Anion Gap 13 Estim Creat Clear Calc 20.0 Estimated GFR 18 POC Glucose 134 H 140 H Random Glucose 131 H Calcium 9.7 07/06/23 11:09 Anion Gap Estim Creat Clear Calc Estimated GFR POC Glucose 169 H Random Glucose Calcium Assessment and Plan (1) Acute metabolic encephalopathy: Status: Acute (2) Acute UTI: Status: Acute Plan 73-year-old female with pertinent history of liver cirrhosis, congestive heart failure unspecified ejection fraction, insulin-dependent diabetes mellitus, mood disorder, AFib on Eliquis who was brought to the emergency department for evaluation of altered mentation. # acute on chronic normocytic anemia , hematocrit dropped from 31 on admission to 21.2 9/ ,no hematemesis or melena noted, reviewed all records from [facility] patient had melena, Eliquis was held, Endoscopy not done at [facility] since patient was not stable to undergo procedure Normal hapto,LDH , less likely hemolysis, stool guaiac positive, hematocrit improved to 24.5 with 1 unit of packed RBC, Eliquis discontinued , hematocrit 23.9 today, follow CBC being followed by Hematology Check iron profile #.? Acute metabolic encephalopathy due to UTI and hepatic encephalopathy in a patient with liver cirrhosis.? More awake alert , answering questions appropriately, ammonia normal, finish course of antibiotic for UTI, liver enzymes improving Po intake improving,patient and family declined G tube continue Ensure #. UTI--finish 7 day course of ceftriaxone and amoxicillin to cover E coli and Enterococcus faecalis, blood cultures are negative no fevers, no leukocytosis follow clinical course #.? INGA versus CKD stage 3 baseline creatinine 1.3-2.? Reviewed old records from [facility] being followed by Dr. Ham as outpatient Creatinine trending down, not yet at baseline,s/p IV albumin , continue midodrine, all diuretics on hold being followed by Nephrology poor prognosis , patient has declined hemodialysis in the past, follow renal function avoid hypotension and nephrotoxic medications #.? Hyponatremia d/t cirrhosis. Sodium 131 today, improved to Sodium 130-134,seems chronic, continue fluid restriction and follow levels. #.? Insulin-dependent diabetes mellitus with hyperglycemia.? Blood sugars stable continue Lantus and insulin sliding scale , poor by mouth intake monitor blood sugar closely, encourage Ensure #.? Liver cirrhosis, from BLOOM. Continue lactulose , diuretics on hold as above, LFTs stable #.? Paroxysmal atrial fibrillation Rate controlled , continue amiodarone ,dc Eliquis due to significant anemia. #.? Congestive heart failure, unspecified ejection fraction.? No decompensation during admission. Diuretics on hold since appears euvolemic and has soft blood pressures. #.? Mood disorder.? Continue home mood stabilizers. DVT prophylaxis: Compression boots DNR/DNI.? Had family meeting with patient's son Gregory Porter at bedside on 07/04 at present continue DNR DNI, will DC psych eval for competency since patient more awake alert. Overall prognosis is poor. Need continued inpatient hospitalization for management of acute on chronic kidney disease, significant anemia requiring close CBC monitoring. Time Spent With Patient Time: Total time managing care of this patient today ____ minutes. Quality Stroke Does the patient have a stroke diagnosis?: No VTE Prior VTE?: No VTE Risk Level:: Medical - moderate - high VTE Device Contraindication: Treatment Not Indicated VTE Drug Contraindication: N/A - Med Ordered
[2023-07-06 13:38] LABS: Iron 47 mcg/dL (30-160); Percent Iron Saturation 39 % (15-50); Total Iron Binding Capacity 122 mcg/dL (228-428); Unsaturated Iron Binding 75 ug/dL
[2023-07-06 15:18] VITALS: BP 121/56; PULSE 61; RESP 18; TEMP 36.2; O2SAT 98
[2023-07-06 16:12] LABS: Glucose, Whole Blood 141 mg/dL (60-115)
[2023-07-06 20:00] VITALS: BP 126/62; PULSE 60; RESP 17; TEMP 36.4; O2SAT 97
[2023-07-06 22:24] LABS: Glucose, Whole Blood 148 mg/dL (60-115)
[2023-07-07 03:47] VITALS: BP 121/59; PULSE 60; RESP 17; TEMP 36.7; O2SAT 99
[2023-07-07 04:12] LABS: Glucose, Whole Blood 145 mg/dL (60-115)
[2023-07-07] MEDS: oxyCODONE HCl Immed Release 5 MG TABLET PO ×2 (04:59→16:12)
[2023-07-07] MEDS: Acetaminophen 325 MG TABLET PO (05:00)
[2023-07-07 06:00] LABS: Hematocrit 26.9 % (37.0-47.0); Hemoglobin 8.7 g/dl (12.0-16.0)
[2023-07-07] MEDS: Midodrine HCl 5 MG TABLET PO ×2 (06:08→17:08)
[2023-07-07 06:22] LABS: Anion Gap 14 (12-20); Blood Urea Nitrogen 51 mg/dL (9-16); Calcium 10.1 mg/dL (8.4-10.2); Carbon Dioxide 22 mmol/L (22-29); Chloride 98 mmol/L (96-108); Creatinine Clr Calc Pharmacy 25.3; Estimated Glomerular Filt Rate 23; Glucose Random 147 mg/dL (60-115); Potassium 3.5 mmol/L (3.3-5.1); Sodium 130 mmol/L (135-145)
[2023-07-07 07:08] VITALS: BP 104/46; PULSE 59; RESP 18; TEMP 36; O2SAT 100
[2023-07-07 07:51] LABS: Glucose, Whole Blood 132 mg/dL (60-115)
[2023-07-07] MEDS: polyethylene glycoL 3350 17 GM POWD.PACK PO (08:28)
[2023-07-07] MEDS: Sertraline HCL 100 MG TABLET PO (08:28)
[2023-07-07] MEDS: Omeprazole 20 MG CAPSULE.DR PO ×2 (08:28→16:09)
[2023-07-07] MEDS: Gabapentin 100 MG CAPSULE PO ×3 (08:28→20:55)
[2023-07-07] MEDS: Amiodarone HCL 200 MG TABLET 400 MG PO (08:28)
[2023-07-07] MEDS: Trolamine Salicylate 10 % Cream 85 GM TUBE 1 APPL TOPICAL ×2 (09:57→21:25)
[2023-07-07 11:16] LABS: Glucose, Whole Blood 157 mg/dL (60-115)
[2023-07-07] MEDS: Insulin Lispro 100 UNIT/ML 3 ML VIAL SUBCUT (11:46)
--- NOTE | 2023-07-07 13:33 | P.PNNP_ITS ---
Subjective Subjective Date of Service: 07/07/23 Interval history: comfortable GFR improving ATN resolving! Physical Exam 2 Vital Signs: Vital Signs: Last Vital Signs Temp 96.8 F 07/07/23 07:08 Pulse 59 07/07/23 07:08 Resp 18 07/07/23 07:08 BP 104/46 L 07/07/23 07:08 Pulse Ox 100 07/07/23 07:08 O2 Del Method Room Air 07/07/23 07:08 BMI result Body Mass Index 33.9 Const: Other: General: no distres Resp: CTA bilateral CVS: S1,S2,RRR GI: +BS, NT, no distention Skin: No rash Neuro: motor grossly intact Psych: appropriate affect Objective Data Labs 07/07/23 05:43 07/07/23 05:43 Labs: Laboratory Results - last 24 hr 07/06/23 07/06/23 07/06/23 07:57 16:05 22:20 Hgb Hct Sodium Potassium Chloride Carbon Dioxide Anion Gap BUN Creatinine Estim Creat Clear Calc Estimated GFR POC Glucose 141 H 148 H Random Glucose Calcium Iron 47 TIBC 122 L % Saturation 39 Unsat Iron Binding 75 07/07/23 07/07/23 07/07/23 04:08 05:43 07:47 Hgb 8.7 L Hct 26.9 L Sodium 130 L Potassium 3.5 Chloride 98 Carbon Dioxide 22 Anion Gap 14 BUN 51 H Creatinine 2.08 H Estim Creat Clear Calc 25.3 Estimated GFR 23 POC Glucose 145 H 132 H Random Glucose 147 H Calcium 10.1 Iron TIBC % Saturation Unsat Iron Binding 07/07/23 11:06 Hgb Hct Sodium Potassium Chloride Carbon Dioxide Anion Gap BUN Creatinine Estim Creat Clear Calc Estimated GFR POC Glucose 157 H Random Glucose Calcium Iron TIBC % Saturation Unsat Iron Binding Microbiology Microbiology Results: Microbiology 06/27/23 20:40 Blood - Venous Blood Culture - Final No growth after 5 days. 06/27/23 20:41 Blood - Venous Blood Culture - Final No growth after 5 days. 06/27/23 20:41 Urine clean catch - Urine titus top Urine Culture - Final Escherichia coli Enterococcus faecalis Procedures Date of Service Date of Service: 07/07/23 Assessment & Plan Assessment and plan (1) Acute kidney injury: Status: Acute (2) Cirrhosis: Status: Acute (3) Hyponatremia: Status: Acute Plan INGA on CKD with BL SCr 2.0 range ( sees Dr Ham) and overall doing very poorly with failure to thrive in the setting of multiorgan system failure with cirrhosis. ATN nearing dialysis needs, but with time and medical management ATN appears to be resolving now. Plan: - IVF if PO intake is poor. - avoid diuresis - renal panel daily. Time Spent With Patient Time: Total time managing care of this patient today ____ minutes. Progress Note: Quality Stroke Does the patient have a stroke diagnosis?: No
[2023-07-07] MEDS: ondansetron HCL 4 MG/2 ML VIAL IVPUSH (13:51)
[2023-07-07 15:42] VITALS: BP 116/54; PULSE 60; RESP 20; TEMP 36; O2SAT 99
--- NOTE | 2023-07-07 16:36 | HO.PM.IMPN ---
Subjective Subjective Date of Service: 07/07/23 Interval History: How awake alert sitting in bed tolerating breakfast, [id number] is at bedside, patient complaining of pain requesting for higher dose of narcotics, pain is mostly localized to lower extremities and back, nausea resolved , had couple loose stool last night, therefore declined lactulose this morning. Review of Systems All other system reviewed and negative Physical Exam Vital Signs: Vital Signs: Last Vital Signs Temp 96.8 F 07/07/23 15:42 Pulse 60 07/07/23 15:42 Resp 20 07/07/23 15:42 BP 116/54 L 07/07/23 15:42 Pulse Ox 99 07/07/23 15:42 O2 Del Method Room Air 07/07/23 15:42 BMI result Body Mass Index 33.9 Const: Other: General:? Awake alert x3, in no acute distress answering questions appropriately. Neck no JVD Resp:? CTA bilateral CVS: S1,S2,RRR GI: +BS, soft and, nontender, no distention Skin: No rash Extremities no pitting edema Neuro:? motor grossly intact Psych: appropriate affect Objective Data Active Medications Acetaminophen (Acetaminophen 325 Mg Tablet) 650 mg PO Q6H PRN PRN Reason: Pain, Mild (Pain Scale 1-3) Last Admin: 07/06/23 11:15 Dose: 650 mg Documented By: WYATT Acetaminophen (Acetaminophen 325 Mg Tablet) 325 mg PO Q8H PRN PRN Reason: Pain, Moderate(Pain Scale 4-6) Last Admin: 07/07/23 05:00 Dose: 325 mg Documented By: SARAH Albuterol Sulfate (Albuterol Sulfate 90 Mcg 8 Gm Inhaler) 2 puff INHALE Q6H PRN PRN Reason: wheezing Amiodarone HCl (Amiodarone Hcl 200 Mg Tablet) 400 mg PO DAILY [facility] Last Admin: 07/07/23 08:28 Dose: 400 mg Documented By: KAYDEN Cyanocobalamin (Cyanocobalamin (Vitamin B-12) 1,000 Mcg/Ml Vial) 1,000 mcg IM Q30D [facility] Last Admin: 07/01/23 09:13 Dose: 1,000 mcg Documented By: RUSSELL Dextrose (Dextrose 50 % 25 Gm/50 Ml Syringe) 25 gm IVPUSH Q15M PRN; Protocol PRN Reason: per Hypoglycemia Standing Ord. Fluticasone/Umeclidinium/Vilanterol (Fluticasone/Umeclidinium/Vilanterol 200/62.5/25 Blst.W.Dev) 1 puff INHALE DAILY [facility] Last Admin: 07/07/23 07:52 Dose: Not Given Documented By: RADHA Non-Admin Reason: Patient Refused Gabapentin (Gabapentin 100 Mg Capsule) 100 mg PO TID [facility] Last Admin: 07/07/23 16:10 Dose: 100 mg Documented By: KAYDEN Glucose (Glucose Gel 15 Gm Gel..Gram.) 15 gm PO Q15M PRN; Protocol PRN Reason: per Hypoglycemia Standing Ord. Promethazine HCl 12.5 mg/ (Sodium Chloride) 50.5 mls @ 202 mls/hr IV Q6H PRN PRN Reason: Nausea and Vomiting Last Infusion: 07/04/23 21:00 Dose: Infused Documented By: RUSSELL Insulin Glargine (Insulin Glargine,Hum.Rec.Anlog 100 Unit/Ml 10 Ml Vial) 15 unit SUBCUT BEDTIME [facility] Last Admin: 07/06/23 22:22 Dose: Not Given Documented By: SARAH Non-Admin Reason: No Insulin Coverage Insulin Human Lispro (Insulin Lispro 100 Unit/Ml 3 Ml Vial) 0 unit SUBCUT Q6H [facility]; Protocol Last Admin: 07/07/23 11:46 Dose: 2 unit Documented By: KAYDEN Lactulose (Lactulose 20 Gm/30 Ml Solution) 30 gm PO BID [facility] Last Admin: 07/07/23 08:38 Dose: Not Given Documented By: KAYDEN Non-Admin Reason: Patient Refused Melatonin (Melatonin 3 Mg Tablet) 6 mg PO BEDTIME PRN PRN Reason: Insomnia Last Admin: 07/02/23 20:53 Dose: 6 mg Documented By: AVELINO Midodrine (Midodrine Hcl 5 Mg Tablet) 5 mg PO BID@0600,1800 [facility] Last Admin: 07/07/23 06:08 Dose: 5 mg Documented By: SARAH Omeprazole (Omeprazole 20 Mg Bernadine.) 20 mg PO BID@0630,1630 [facility] Last Admin: 07/07/23 16:09 Dose: 20 mg Documented By: KAYDEN Ondansetron HCl (Ondansetron Hcl 4 Mg/2 Ml Vial) 4 mg IVPUSH Q8H PRN PRN Reason: Nausea and Vomiting Last Admin: 07/07/23 13:51 Dose: 4 mg Documented By: KAYDEN Oxycodone HCl (Oxycodone Hcl Immed Release 5 Mg Tablet) 5 mg PO Q8H PRN PRN Reason: Pain, Moderate(Pain Scale 4-6) Last Admin: 07/07/23 16:12 Dose: 5 mg Documented By: KAYDEN Polyethylene Glycol (Polyethylene Glycol 3350 17 Gm Powd.Pack) 17 gm PO DAILY [facility] Last Admin: 07/07/23 08:28 Dose: 17 gm Documented By: KAYDEN Sertraline HCl (Sertraline Hcl 100 Mg Tablet) 100 mg PO DAILY [facility] Last Admin: 07/07/23 08:28 Dose: 100 mg Documented By: KAYDEN Sodium Chloride (0.9 % Sodium Chloride Flush 3 Ml Syringe) 3 ml IVFLUSH QSHIFT [facility] Last Admin: 07/07/23 13:32 Dose: Not Given Documented By: KAYDEN Non-Admin Reason: See Note Trolamine Salicylate (Trolamine Salicylate 10 % Cream 85 Gm Tube) 1 appl TOPICAL BID [facility] Last Admin: 07/07/23 09:57 Dose: 1 appl Documented By: KAYDEN Labs 07/07/23 05:43 07/07/23 05:43 Labs: Laboratory Results - last 24 hr 07/06/23 07/07/23 07/07/23 22:20 04:08 05:43 Anion Gap 14 Estim Creat Clear Calc 25.3 Estimated GFR 23 POC Glucose 148 H 145 H Random Glucose 147 H Calcium 10.1 07/07/23 07/07/23 07:47 11:06 Anion Gap Estim Creat Clear Calc Estimated GFR POC Glucose 132 H 157 H Random Glucose Calcium Assessment and Plan (1) Acute metabolic encephalopathy: Status: Acute (2) Acute UTI: Status: Acute Plan 73-year-old female with pertinent history of liver cirrhosis, congestive heart failure unspecified ejection fraction, insulin-dependent diabetes mellitus, mood disorder, AFib on Eliquis who was brought to the emergency department for evaluation of altered mentation. # acute on chronic normocytic anemia , hematocrit dropped from 31 on admission to 21.2 07/04 ,no hematemesis or melena noted, reviewed all records from [facility] patient had melena, Eliquis was held, Endoscopy not done at [facility] since patient was not stable to undergo procedure Normal hapto,LDH , less likely hemolysis, stool guaiac positive, hematocrit improved to 24.5 with 1 unit of packed RBC, Eliquis discontinued , repeat hematocrit 26.9, iron studies showed TIBC 122 normal iron and saturation #.? Acute metabolic encephalopathy due to UTI and hepatic encephalopathy in a patient with liver cirrhosis.? More awake alert , answering questions appropriately, ammonia normal, finish course of antibiotic for UTI, liver enzymes improving Po intake improving,patient and family declined G tube continue Ensure #. UTI--finish 7 day course of ceftriaxone and amoxicillin to cover E coli and Enterococcus faecalis, blood cultures are negative no fevers, no leukocytosis follow clinical course #.? INGA versus CKD stage 3 baseline creatinine 1.3-2.? Reviewed old records from [facility] being followed by Dr. Ham as outpatient s/p IV albumin , continue midodrine, all diuretics held, renal function returned to baseline to today,followed by Nephrology poor prognosis , patient has declined hemodialysis in the past, follow renal function avoid hypotension and nephrotoxic medications #.? Hyponatremia d/t cirrhosis. Sodium 130 today, improved to Sodium 130-134,seems chronic, continue fluid restriction and follow levels. #.? Insulin-dependent diabetes mellitus with hyperglycemia.? Blood sugars stable continue Lantus and insulin sliding scale , poor by mouth intake monitor blood sugar closely, encourage Ensure #.? Liver cirrhosis, from BLOOM. Continue lactulose , diuretics on hold as above, LFTs stable #.? Paroxysmal atrial fibrillation Rate controlled , continue amiodarone ,dc Eliquis due to significant anemia, patient and family made aware of risk of stroke. #.? Congestive heart failure, unspecified ejection fraction.? No decompensation during admission. Diuretics on hold since appears euvolemic and has soft blood pressures. #.? Mood disorder.? Continue home mood stabilizers. DVT prophylaxis: Compression boots DNR/DNI.? Had family meeting with patient's son Gregory Porter at bedside on 07/04 at present continue DNR DNI, will DC psych eval for competency since patient more awake alert, spoke with patient's son again on 07/06 and [id number] today at 10:10 and discussed discharge plan back to rehab facility, waiting for PT eval social work case manager arranging for safe discharge. Overall prognosis is poor. Need continued inpatient hospitalization for management of acute on chronic kidney disease, significant anemia requiring close CBC monitoring. Time Spent With Patient Time: Total time managing care of this patient today ____ minutes. Quality Stroke Does the patient have a stroke diagnosis?: No VTE Prior VTE?: No VTE Risk Level:: Medical - moderate - high VTE Device Contraindication: Treatment Not Indicated VTE Drug Contraindication: N/A - Med Ordered
--- NOTE | 2023-07-07 16:52 | PM.DS ---
DS: Providers Provider Date of Service: 07/09/23 <Treasure Linn MD - Last Filed: 07/09/23 13:30> Date of admission: 06/27/23 22:46 <Odilia Penaloza MD - Last Filed: 07/07/23 17:05> Primary care physician: Unknown Physician <Odilia Penaloza MD - Last Filed: 07/07/23 17:05> Consults: 06/28/23 07:53 Consult to Nephrology Routine Consulting Provider: Omega Schilling Reason for consultation: INGA vs CKD vs HRS Has provider been notified: No 07/04/23 12:13 Consult to Hematology / Oncology Routine Consulting Provider: Maty Onofre Reason for consultation: anemia Has provider been notified: No <Odilia Penaloza MD - Last Filed: 07/07/23 17:05> DS: Diagnosis Discharge Diagnosis (1) Acute metabolic encephalopathy: Status: Acute <Odilia Penaloza MD - Last Filed: 07/07/23 17:05> (2) Acute UTI: Status: Acute <Odilia Penaloza MD - Last Filed: 07/07/23 17:05> (3) Anemia: Status: Acute <Odilia Penaloza MD - Last Filed: 07/07/23 17:05> (4) Acute kidney injury: Status: Acute <Odilia Penaloza MD - Last Filed: 07/07/23 17:05> (5) Cirrhosis: Status: Acute <Odilia Penaloza MD - Last Filed: 07/07/23 17:05> (6) Hyponatremia: Status: Acute <Odilia Penaloza MD - Last Filed: 07/07/23 17:05> (7) Chronic kidney disease, stage 3: Status: Acute <Odilia Penaloza MD - Last Filed: 07/07/23 17:05> (8) Hepatic encephalopathy: Status: Acute <Odilia Penaloza MD - Last Filed: 07/07/23 17:05> (9) Deep tissue injury: Status: Acute <Odilia Penaloza MD - Last Filed: 07/07/23 17:05> (10) Stage II pressure ulcer of heel: Status: Acute <Odilia Penaloza MD - Last Filed: 07/07/23 17:05> DS: Summary Hospital Course Hospital Course: From admission H+P: Date of Service: 06/27/23 Chief Complaint: Altered mentation This is a 73-year-old female with pertinent history of liver cirrhosis, congestive heart failure unspecified ejection fraction, insulin-dependent diabetes mellitus, mood disorder, AFib on Eliquis who was brought to the emergency department for evaluation of altered mentation. History obtained from family at bedside and chart review. About 3-4 days prior to presentation, patient with decreased mentation and decreased p.o. intake. Family states that patient has been drowsy over the last few days. Not eating or drinking well. The family states that patient does have some liver problem and occasionally gets confused when her ammonia level gets high. Possible dysuria according to family. Unable to obtain review of systems accurately from the patient. Patient is only oriented to self at the time of my evaluation. She does not know why she is in the hospital. Hospital course: 73-year-old female with history of liver cirrhosis, congestive heart failure with preserved ejection fraction, insulin-dependent diabetes mellitus, mood disorder, and AFib on Eliquis who was brought to the emergency department for evaluation of altered mentation. Patient was diagnosed to have acute metabolic encephalopathy due to UTI and hepatic encephalopathy. She was treated with IV antibiotics to cover E coli and Enterococcus faecalis and finished a 7-day course of antibiotics. Blood cultures were negative. The patient was treated with lactulose and rifaximin with improvement in her mentation. She also developed INGA superimposed on CKD3. Nephrology was consulted. Likely prerenal INGA rather than HRS. She was treated with IV albumin and gentle fluids. Diuretics were held. Renal function improved and was actually improved from baseline by the day of discharge. She was noted to have acute on chronic normocytic anemia. No nelida GI bleeding was noted. Hemolytic workup was negative. Stool guaiac was positive but invasive workup was deferred given her comorbidities. She was treated with 1 unit of packed red blood cells with appropriate response. Eliquiswas discontinued and should be held for 2 weeks. Recheck CBC weekly and consider resuming if CBC stable. Patient has a history of liver cirrhosis from BLOOM. She had mild hyponatremia with sodium around 130; fluid was restricted to 1.5L daily. In regard to insulin-dependent diabetes mellitus with hyperglycemia, blood sugars were stable on Lantus and Humalog. As for paroxysmal atrial fibrillation rate remained controlled. Amiodarone was continued. Eliquis was stopped due to anemia as above and the risk of stroke was discussed with the family. She did not have 20/05 halfway nor available funds for fci care. She was discharged to [facility] for short-term rehabilitation. She was noted to have multiple pressure injuries. Wound care was consulted. Recommendations: DTI to R heel, blistered, 4x3.5 cm: Pad with foam border, change dressing every other day. L heel stage II pressure injury, 0.6x0.8x0.1 cm: Cleanse with normal saline, cut silver alginate toe wound size and apply to wound bed; cover with foam border or gauze and cling; change every other day. Coccygeal/sacral DTI, [id number] cm: Apply Triad cream or zinc barrier cream. Cover with sacral foam border every other day or as needed if soiled. R posterior thigh, stage I, 1.3x2.3 cm: protect with foam border. Off-load heels using pillows or heel protector boots. Air mattress. <Odilia Penaloza MD - Last Filed: 07/07/23 17:05> Time Spent with Patient Time attestation: Total time managing care of this patient today ____ minutes. <Odilia Penaloza MD - Last Filed: 07/07/23 17:05> Discharge coordination time: Greater than 30 minutes <Treasure Linn MD - Last Filed: 07/09/23 13:30> Quality: Safe Use of Opioids Does Pt have an Active Cancer Diagnosis on the Problem List?: No <Treasure Linn MD - Last Filed: 07/09/23 13:30> Quality: Stroke Does the patient have a stroke diagnosis?: No <Treasure Linn MD - Last Filed: 07/09/23 13:30> Physical Exam Vital Signs: Vital Signs: Last Vital Signs Temp 96.8 F 07/07/23 15:42 Pulse 60 07/07/23 15:42 Resp 20 07/07/23 15:42 BP 116/54 L 07/07/23 15:42 Pulse Ox 99 07/07/23 15:42 O2 Del Method Room Air 07/07/23 15:42 BMI result Body Mass Index 33.9 <Odilia Penaloza MD - Last Filed: 07/07/23 17:05> Vital Signs: Last Vital Signs Temp 96.8 F 07/07/23 15:42 Pulse 60 07/07/23 15:42 Resp 20 07/07/23 15:42 BP 116/54 L 07/07/23 15:42 Pulse Ox 99 07/07/23 15:42 O2 Del Method Room Air 07/07/23 15:42 BMI result Body Mass Index 33.9 Gen: chronically ill apearing HEENT: sclera anicteric, moist mucus membranes Neck: supple Lungs: clear to auscultation bilaterally Heart: regular rate and rhythm, no murmurs Abd: soft, non-tender, non-distended Ext: no edema Skin: warm/well-perfused Neuro: alert and oriented to self + place, asterixis present Psych: appropriate affect <Treasure Linn MD - Last Filed: 07/09/23 13:30> DS: Data Data Completed and Pending Completed studies during hospitalization [Text1]: Laboratory Results WBC 6.1 X10*3/uL (4.8-10.8) 07/05/23 05:30 RBC 2.69 X10*6/uL (4.20-5.50) L 07/05/23 05:30 Hgb 8.7 g/dl (12.0-16.0) L 07/07/23 05:43 Hct 26.9 % (37.0-47.0) L 07/07/23 05:43 MCV 91.1 fL (80.0-98.0) 07/05/23 05:30 MCH 29.7 pg (27.0-33.0) 07/05/23 05:30 MCHC 32.7 g/dl (31.0-35.0) 07/05/23 05:30 RDW 17.9 % (11.0-16.0) H 07/05/23 05:30 Plt Count 101 X10*3/uL (160-400) L 07/05/23 05:30 MPV 12.3 fL (9.4-12.3) 07/05/23 05:30 Immature Gran % (Auto) 0.4 % (0.0-0.4) 06/28/23 05:07 Neut % (Auto) 76.4 % (45-73) H 06/28/23 05:07 Lymph % (Auto) 12.9 % (20-40) L 06/28/23 05:07 [place] % (Auto) 9.7 % (2-11) 06/28/23 05:07 Eos % (Auto) 0.3 % (0-4) 06/28/23 05:07 Baso % (Auto) 0.3 % (0-2) 06/28/23 05:07 Lymph # (Auto) 1.0 X10*3/uL (1.2-4.9) L 06/28/23 05:07 [place] # (Auto) 0.7 X10*3/uL (0.1-1.2) 06/28/23 05:07 Eos # (Auto) 0.0 X10*3/uL (0.0-0.4) 06/28/23 05:07 Baso # (Auto) 0.0 X10*3/uL (0.0-0.2) 06/28/23 05:07 Abs Immat Gran (auto) 0.03 X10*3/uL (0.00-0.03) 06/28/23 05:07 Absolute Neuts (auto) 5.6 x10*3/uL (2.0-8.3) 06/28/23 05:07 Absolute Nucleated RBC 0.000 X10*3/uL (0.0-0.012) 07/05/23 05:30 Nucleated RBC % (auto) 0.0 /100WBC (0.0-0.2) 07/05/23 05:30 Smear Path Review SEE NOTE 07/04/23 06:01 Absolute Retic 0.069 X10*6/uL (0.026-0.095) 07/04/23 12:49 Percent Retic 3.0 % (0.5-1.8) H 07/04/23 12:49 Immature Retic Fraction 14.1 % (3.0-15.9) 07/04/23 12:49 Retic Hgb Equivalent 32.8 pg (30.0-35.0) 07/04/23 12:49 Haptoglobin 73 MG/DL ((30-200)) 07/04/23 12:49 PT 24.2 SEC (11.1-13.3) H 06/27/23 20:41 INR 2.0 (0.9-1.1) H 06/27/23 20:41 Sodium 134 mmol/L (135-145) L 07/09/23 05:42 Potassium 3.7 mmol/L (3.3-5.1) 07/09/23 05:42 Chloride 100 mmol/L (96-108) 07/09/23 05:42 Carbon Dioxide 26 mmol/L (22-29) 07/09/23 05:42 Anion Gap 12 (12-20) 07/09/23 05:42 BUN 49 mg/dL (9-16) H 07/09/23 05:42 Creatinine 1.38 mg/dL (0.5-1.4) 07/09/23 05:42 Estim Creat Clear Calc 38.2 07/09/23 05:42 Estimated GFR 37 07/09/23 05:42 POC Glucose 184 mg/dL (60-115) H 07/09/23 12:05 Random Glucose 161 mg/dL (60-115) H 07/09/23 05:42 Osmolality 295 mosm/kg (281-305) 06/27/23 23:53 Lactic Acid 1.5 mmol/L (0.5-2.0) 06/27/23 20:40 Calcium 9.5 mg/dL (8.4-10.2) 07/09/23 05:42 Iron 47 mcg/dL (30-160) 07/06/23 07:57 TIBC 122 mcg/dL (228-428) L 07/06/23 07:57 % Saturation 39 % (15-50) 07/06/23 07:57 Unsat Iron Binding 75 ug/dL 07/06/23 07:57 Total Bilirubin 3.2 mg/dL (0.0-1.0) H 07/05/23 05:30 Direct Bilirubin 2.1 mg/dL (0.0-0.5) H 07/05/23 05:30 AST 79 U/L (5-31) H 07/05/23 05:30 ALT 21 U/L (0-31) 07/05/23 05:30 Alkaline Phosphatase 125 U/L (39-117) H 07/05/23 05:30 Ammonia 41 umol/L (13-55) 07/09/23 05:42 Lactate Dehydrogenase 119 U/L (122-220) L 07/04/23 12:49 Troponin I High Sens 29.6 ng/L (<3.5-17.0) H 06/27/23 20:41 Total Protein 6.3 g/dL (6.5-8.0) L 07/05/23 05:30 Albumin 3.7 g/dL (3.5-5.0) 07/05/23 05:30 Urine Color Yellow 06/27/23 20:41 Urine Appearance Hazy 06/27/23 20:41 Urine pH 7.5 (5.0-9.0) 06/27/23 20:41 Ur Specific [place] 1.010 (1.005-1.025) 06/27/23 20:41 Urine Protein Negative mg/dL (Neg-Trace) 06/27/23 20:41 Urine Glucose (UA) Negative mg/dL (Negative) 06/27/23 20:41 Urine Ketones Negative mg/dL (Negative) 06/27/23 20:41 Urine Blood Small (1+) (Negative) H 06/27/23 20:41 Urine Nitrite Negative (Negative) 06/27/23 20:41 Ur Leukocyte Esterase Large (3+) (Negative) H 06/27/23 20:41 Urine RBC 3-5 /HPF (0-2) H 06/27/23 20:41 Urine WBC >50 /HPF (0-5) H 06/27/23 20:41 Ur Squamous Epith Cells 6-10 /HPF (0-2) 06/27/23 20:41 Calcium Oxalate Crystal Present 06/27/23 20:41 Urine Bacteria 2+ (None Seen) 06/27/23 20:41 Hyaline Casts >20 /LPF (0-2) 06/27/23 20:41 Urine Eosinophils % 0.0 % 07/03/23 05:03 U Random Total Protein 13 mg/dL (<12) H 07/03/23 05:03 Ur Random Sodium < 20.0 mmol/L 07/03/23 05:03 Urine Creatinine 58.90 mg/dL 07/03/23 05:03 Stool Occult Blood POSITIVE (NEGATIVE) 07/04/23 15:00 Blood Type O Negative 07/04/23 12:49 Antibody Screen NEGATIVE 07/04/23 12:49 SHADY, Polyspecific NEGATIVE 07/04/23 06:01 Positive SHADY Work-up TNP 07/04/23 06:01 Crossmatch See Detail 07/04/23 12:49 Impressions Abdomen/Pelvis CT 06/27/23 22:45 IMPRESSION: 1. No acute process of the abdomen or pelvis identified. 2. Liver demonstrates a cirrhotic morphology. Splenic varices suggesting portal hypertension. 3. Status post cholecystectomy. 4. Subcentimeter hypodense focus along the anterior aspect of the left renal interpolar region to small to characterize though statistically representing a simple cyst, not requiring follow-up. 5. Colonic diverticulosis without acute diverticulitis. 6. Osteopenia. <Treasure Lnin MD - Last Filed: 07/09/23 13:30> Labs on day of discharge: Laboratory Results - last 24 hr 07/06/23 07/07/23 07/07/23 22:20 04:08 05:43 Hgb 8.7 L Hct 26.9 L Sodium 130 L Potassium 3.5 Chloride 98 Carbon Dioxide 22 Anion Gap 14 BUN 51 H Creatinine 2.08 H Estim Creat Clear Calc 25.3 Estimated GFR 23 POC Glucose 148 H 145 H Random Glucose 147 H Calcium 10.1 07/07/23 07/07/23 07:47 11:06 Hgb Hct Sodium Potassium Chloride Carbon Dioxide Anion Gap BUN Creatinine Estim Creat Clear Calc Estimated GFR POC Glucose 132 H 157 H Random Glucose Calcium <Odilia Penaloza MD - Last Filed: 07/07/23 17:05> Discharge Plan Discharge Anticipated Discharge Date/Time: 07/09/23 13:11 <Odilia Penaloza MD - Last Filed: 07/07/23 17:05> Patient Disposition: Xfer SNF <Odilia Penaloza MD - Last Filed: 07/07/23 17:05> Discharge Diagnosis: Acute metabolic encephalopathy UTI Acute on chronic normocytic anemia Acute on chronic kidney disease stage 3 Hyponatremia <Odilia Penaloza MD - Last Filed: 07/07/23 17:05> Acute metabolic encephalopathy UTI Acute on chronic normocytic anemia Acute on chronic kidney disease stage 3 Hyponatremia <Treasure Linn MD - Last Filed: 07/09/23 13:30> Referrals: [facility] [Outside] - 1 Week Dequan Lyon NP [Nurse Practitioner] - 1 Week <Odilia Penaloza MD - Last Filed: 07/07/23 17:05> Discharge Medications: New Xifaxan 550 mg Tablet 550 mg PO BID Qty: 60 0RF Continued polyethylene glycol 3350 [Miralax] 17 gram Powder In Packet 17 g PO DAILY ondansetron HCl 4 mg Tablet 8 mg PO TID spironolactone 100 mg Tablet 100 mg PO BEDTIME oxycodone-acetaminophen [Percocet] 5-325 mg Tablet 1 tab PO Q8H PRN (Reason: Pain) amiodarone 400 mg Tablet 400 mg PO DAILY omeprazole 20 mg capsule,delayed release(DR/EC) 20 mg PO BID albuterol sulfate 90 mcg/actuation HFA aerosol inhaler 2 puff inhalation Q6H PRN (Reason: wheezing) sertraline 50 mg Tablet 100 mg PO DAILY midodrine 10 mg Tablet 5 mg PO BID Rx Instructions: do not give last dose of day after 6PM or within 4 hrs of bedtime lactulose 10 gram/15 mL Solution 45 ml PO BID Muscle Rub 15-10 % Cream 1 appl TOPICAL BID cyanocobalamin (vitamin B-12) 1,000 mcg/mL Kit 1,000 mcg IM Q30D Trelegy Ellipta 200-62.5-25 mcg Blister With Device 1 inh INHALATION DAILY gabapentin 100 mg Capsule 100 mg PO TID Changed insulin glargine 100 unit/mL Solution 15 unit SUBCUT BEDTIME Qty: 10 0RF Discontinued torsemide 100 mg Tablet 100 mg PO DAILY apixaban 5 mg Tablet 5 mg PO BID potassium chloride 20 mEq Tablet Extended Release 20 meq PO DAILY <Odilia Penaloza MD - Last Filed: 07/07/23 17:05> Discharge Orders: Discharge Order (Routine); Ordered 07/09/23 Ordered By: Treasure Linn <Odilia Penaloza MD - Last Filed: 07/07/23 17:05> Diet: Diabetic diet <Odilia Penaloza MD - Last Filed: 07/07/23 17:05> Diabetic diet <Treasure Linn MD - Last Filed: 07/09/23 13:30> Activity on Discharge: As tolerated <Odilia Penlaoza MD - Last Filed: 07/07/23 17:05> As tolerated <Treasure Linn MD - Last Filed: 07/09/23 13:30> Stand Alone Forms: Patient Portal Discharge page <Odilia Penaloza MD - Last Filed: 07/07/23 17:05> Care Plan Goals: Monitor CBC weekly; if stable after 2 weeks, consider restarting Eliquis Monitor kidney function in 1 week [BMP] Monitor fluid status if noted to have worsening edema or shortness of breath, consider low-dose diuretics Monitor mental status Hold lactulose for more than 3 bowel movements per day Ensure 1 can tid Restrict fluid to 1.5L daily DTI to R heel, blistered, 4x3.5 cm: Pad with foam border, change dressing every other day. L heel stage II pressure injury, 0.6x0.8x0.1 cm: Cleanse with normal saline, cut silver alginate toe wound size and apply to wound bed; cover with foam border or gauze and cling; change every other day. Coccygeal/sacral DTI, 51x84s8.1 cm: Apply Triad cream or zinc barrier cream. Cover with sacral foam border every other day or as needed if soiled. R posterior thigh, stage I, 1.3x2.3 cm: protect with foam border. Off-load heels using pillows or heel protector boots. Air mattress. <Odilia Penaloza MD - Last Filed: 07/07/23 17:05> Health Concerns: Cirrhosis of liver Chronic kidney disease stage 3 <Odilia Penaloza MD - Last Filed: 07/07/23 17:05> Plan of Treatment: Close outpatient follow-up with primary care physician, anodic treater Dr. Ham Short-term rehabilitation <Odilia Penaloza MD - Last Filed: 07/07/23 17:05> Assessment: as above <Odilia Penaloza MD - Last Filed: 07/07/23 17:05>
[2023-07-07 17:17] LABS: Glucose, Whole Blood 120 mg/dL (60-115)
[2023-07-07 19:49] VITALS: BP 120/56; PULSE 60; RESP 17; TEMP 36.5; O2SAT 100
[2023-07-07 20:34] LABS: Glucose, Whole Blood 127 mg/dL (60-115)
[2023-07-07] MEDS: Lactulose 20 GM/30 ML SOLUTION 30 GM PO (20:59)
[2023-07-07] MEDS: 0.9 % Sodium Chloride Flush 3 ML SYRINGE IVFLUSH (21:05)
[2023-07-07 22:36] LABS: Glucose, Whole Blood 131 mg/dL (60-115)
[2023-07-08 04:00] VITALS: BP 123/56; PULSE 60; RESP 18; TEMP 36.3; O2SAT 99
[2023-07-08] MEDS: oxyCODONE HCl Immed Release 5 MG TABLET PO ×3 (04:29→22:35)
[2023-07-08] MEDS: Omeprazole 20 MG CAPSULE.DR PO ×2 (05:50→17:26)
[2023-07-08 05:58] LABS: Glucose, Whole Blood 136 mg/dL (60-115)
[2023-07-08 07:02] VITALS: BP 102/58; PULSE 64; RESP 16; TEMP 36.6; O2SAT 99
[2023-07-08] MEDS: Fluticasone/Umeclidinium/Vilanterol 200/62.5/25 BLST.W.DEV 1 PUFF INHALE (07:40)
[2023-07-08 07:43] VITALS: PULSE 64; RESP 18; O2SAT 99
--- NOTE | 2023-07-08 10:44 | MHC.CLN ---
F/U DIET=NDD3 CONSISTENCY; 1500 ML FLUID RESTRICTION. SKIN WITH DTI TO RIGHT AND LEFT HEELS AND BUTTOCK. SUPPLEMENT CHANGED TO ENSURE MAX PROTEIN BID. SUPPLEMENT PROVIDES 300 KCALS, 60 G PROTEIN, 600 ML FREE WATER IF 100% CONSUMED. PO INTAKE X 2 DAYS 25-50%. NO FEEDING TUBE, NO DIALYSIS PER PATIENT/FAMILY. REQUIRES 1:1 ASSISTANCE WITH FEEDING. CONTINUE TO PROVIDE ASSISTANCE AND ENCOURAGEMENT WITH FOOD/MEALS. FOLLOW FOR PLAN OF CARE.
[2023-07-08 11:27] LABS: Glucose, Whole Blood 130 mg/dL (60-115)
[2023-07-08] MEDS: rifAXIMin 550 MG TABLET PO ×2 (11:38→21:12)
[2023-07-08] MEDS: Gabapentin 100 MG CAPSULE PO ×3 (11:38→21:12)
[2023-07-08] MEDS: Sertraline HCL 100 MG TABLET PO (11:38)
[2023-07-08] MEDS: Amiodarone HCL 200 MG TABLET 400 MG PO (11:38)
--- NOTE | 2023-07-08 12:49 | MHC.SLORD ---
Addendum entered and electronically signed by Rozina Vieyra MA, CCC-[facility]ER 07/08/23 15:38: Pt refused to participate in dysphagia treatment when seen again by H[facility] SLINGER. Pt complaining of pain in her bottom. [facility] SLINGER notified MD and RN. Pt is on a chopped/advanced diet (NDD3)/thin liquids (fluid restriction). [facility]INGER will continue to follow. Original Note: Speech Language Pathology Order Status: Pt refused to be sat up and refused food offered by [facility], stating that she didn't want to throw up. Will re-attempt tx later this afternoon.
--- NOTE | 2023-07-08 14:39 | P.PNIM_ITS ---
Subjective Subjective Date of Service: 07/08/23 Interval History: denies pain no nausea/vomiting confused, obvious asterixis Review of Systems Review of Systems: Yes all other systems are reviewed and are negative Physical Exam 2 Vital Signs: Vital Signs: Last Vital Signs Temp 98 F 07/08/23 07:02 Pulse 64 07/08/23 07:43 Resp 18 07/08/23 07:43 BP 102/58 L 07/08/23 07:02 Pulse Ox 99 07/08/23 07:02 O2 Del Method Room Air 07/08/23 07:02 BMI result Body Mass Index 33.9 Gen: chronically aill apearing HEENT: sclera anicteric, moist mucus membranes Neck: supple Lungs: clear to auscultation bilaterally Heart: regular rate and rhythm, no murmurs Abd: soft, non-tender, non-distended Ext: no edema Skin: warm/well-perfused Neuro: alert and oriented to self + place, asterixis present Psych: appropriate affect Objective Data Active Medications Acetaminophen (Acetaminophen 325 Mg Tablet) 650 mg PO Q6H PRN PRN Reason: Pain, Mild (Pain Scale 1-3) Last Admin: 07/06/23 11:15 Dose: 650 mg Documented By: WYATT Acetaminophen (Acetaminophen 325 Mg Tablet) 325 mg PO Q8H PRN PRN Reason: Pain, Moderate(Pain Scale 4-6) Last Admin: 07/07/23 05:00 Dose: 325 mg Documented By: SARAH Albuterol Sulfate (Albuterol Sulfate 90 Mcg 8 Gm Inhaler) 2 puff INHALE Q6H PRN PRN Reason: wheezing Amiodarone HCl (Amiodarone Hcl 200 Mg Tablet) 400 mg PO DAILY [facility] Last Admin: 07/08/23 11:38 Dose: 400 mg Documented By: MERCEDES Cyanocobalamin (Cyanocobalamin (Vitamin B-12) 1,000 Mcg/Ml Vial) 1,000 mcg IM Q30D [facility] Last Admin: 07/01/23 09:13 Dose: 1,000 mcg Documented By: RUSSELL Dextrose (Dextrose 50 % 25 Gm/50 Ml Syringe) 25 gm IVPUSH Q15M PRN; Protocol PRN Reason: per Hypoglycemia Standing Ord. Fluticasone/Umeclidinium/Vilanterol (Fluticasone/Umeclidinium/Vilanterol 200/62.5/25 Blst.W.Dev) 1 puff INHALE DAILY [facility] Last Admin: 07/08/23 07:40 Dose: 1 puff Documented By: SAUL Gabapentin (Gabapentin 100 Mg Capsule) 100 mg PO TID [facility] Last Admin: 07/08/23 11:38 Dose: 100 mg Documented By: MERCEDES Glucose (Glucose Gel 15 Gm Gel..Gram.) 15 gm PO Q15M PRN; Protocol PRN Reason: per Hypoglycemia Standing Ord. Promethazine HCl 12.5 mg/ (Sodium Chloride) 50.5 mls @ 202 mls/hr IV Q6H PRN PRN Reason: Nausea and Vomiting Last Infusion: 07/04/23 21:00 Dose: Infused Documented By: RUSSELL Insulin Glargine (Insulin Glargine,Hum.Rec.Anlog 100 Unit/Ml 10 Ml Vial) 15 unit SUBCUT BEDTIME [facility] Last Admin: 07/07/23 21:05 Dose: Not Given Documented By: ALLISON Non-Admin Reason: Physician Approved Insulin Human Lispro (Insulin Lispro 100 Unit/Ml 3 Ml Vial) 0 unit SUBCUT Q6H [facility]; Protocol Last Admin: 07/08/23 11:49 Dose: Not Given Documented By: MERCEDES Non-Admin Reason: No Insulin Coverage Lactulose (Lactulose 20 Gm/30 Ml Solution) 30 gm PO TID [facility] Melatonin (Melatonin 3 Mg Tablet) 6 mg PO BEDTIME PRN PRN Reason: Insomnia Last Admin: 07/02/23 20:53 Dose: 6 mg Documented By: AVELINO Midodrine (Midodrine Hcl 5 Mg Tablet) 5 mg PO BID@0600,1800 [facility] Last Admin: 07/08/23 06:48 Dose: Not Given Documented By: ALLISON Non-Admin Reason: Elevated Blood Pressure Omeprazole (Omeprazole 20 Mg Bernadine.) 20 mg PO BID@0630,1630 [facility] Last Admin: 07/08/23 05:50 Dose: 20 mg Documented By: ALLISON Ondansetron HCl (Ondansetron Hcl 4 Mg/2 Ml Vial) 4 mg IVPUSH Q8H PRN PRN Reason: Nausea and Vomiting Last Admin: 07/07/23 13:51 Dose: 4 mg Documented By: KAYDEN Oxycodone HCl (Oxycodone Hcl Immed Release 5 Mg Tablet) 5 mg PO Q8H PRN PRN Reason: Pain, Moderate(Pain Scale 4-6) Last Admin: 07/08/23 04:29 Dose: 5 mg Documented By: ALLISON Polyethylene Glycol (Polyethylene Glycol 3350 17 Gm Powd.Pack) 17 gm PO DAILY [facility] Last Admin: 07/08/23 11:48 Dose: Not Given Documented By: MERCEDES Non-Admin Reason: Patient Refused Rifaximin (Rifaximin 550 Mg Tablet) 550 mg PO BID [facility] Last Admin: 07/08/23 11:38 Dose: 550 mg Documented By: MERCEDES Sertraline HCl (Sertraline Hcl 100 Mg Tablet) 100 mg PO DAILY [facility] Last Admin: 07/08/23 11:38 Dose: 100 mg Documented By: MERCEDES Sodium Chloride (0.9 % Sodium Chloride Flush 3 Ml Syringe) 3 ml IVFLUSH QSHIFT [facility] Last Admin: 07/08/23 11:38 Dose: Not Given Documented By: MERCEDES Non-Admin Reason: Previously Administered Trolamine Salicylate (Trolamine Salicylate 10 % Cream 85 Gm Tube) 1 appl TOPICAL BID [facility] Last Admin: 07/08/23 11:47 Dose: Not Given Documented By: MERCEDES Non-Admin Reason: Patient Refused Labs 07/07/23 05:43 07/07/23 05:43 Labs: Laboratory Results - last 24 hr 07/07/23 07/07/23 07/07/23 17:12 20:28 22:32 POC Glucose 120 H 127 H 131 H 07/08/23 07/08/23 05:55 11:15 POC Glucose 136 H 130 H Assessment and Plan (1) Acute metabolic encephalopathy: Status: Acute (2) Acute UTI: Status: Acute Plan d12 73yo F with BLOOM cirrhosis, CHF with unspecified EF, DM2, mood disorder AF on apixaban admitted for altered mental status acute metabolic encephalopathy due to UTI hepatic encephalopathy due to cirrhosis - increase lactulose, add rifaximin - PO intake improving, pt/family declined G-tube acute/chronic normocytic anemia - no hematemsis or melena noted. pt recently at [facility], was not stable enough for endoscopy at that point. - improved after 1u pRBC transfused 07/04 UTI - s/p 7d course of ceftriaxone + amoxicillin for E. coli + Enterococcus faecalis, BCx negative INGA-CKD4 - s/p IV albumin, continue midodrine, all diuretics held - renal function now at baseline, followed by Nephrology, poor prognosis, has declined hemodialysis hypoNa - due to cirrhosis. stable, continue fluid restriction DM2 with hyperglycemia - basal-bolus insulin paroxysmal AF - rate controlled - conitnue amiodarone, d/c apixaban due to significant anemia CHF with unspecified EF - chronic, no acute decompensation. diuretics on hold due to soft BPs. mood disorder - continue sertraline VTE ppx - SCDs dispo - plan STR - family meeting with son 07/[address] Penaloza: continue DNR/DNI - planned hospice but no payor source for LTC or hospice room + board In my clinical judgment, the patient requires continued inpatient hospitalization for the following reasons: placement Time Spent With Patient Time: Total time managing care of this patient today _35___ minutes. Quality Stroke Does the patient have a stroke diagnosis?: No VTE Prior VTE?: No VTE Risk Level:: Medical - moderate - high VTE Device Contraindication: Treatment Not Indicated VTE Drug Contraindication: N/A - Med Ordered
[2023-07-08 16:00] VITALS: BP 117/56; PULSE 59; RESP 16; TEMP 36.2; O2SAT 100
[2023-07-08] MEDS: Midodrine HCl 5 MG TABLET PO (17:26)
[2023-07-08] MEDS: 0.9 % Sodium Chloride Flush 3 ML SYRINGE IVFLUSH ×2 (17:26→21:13)
[2023-07-08 18:16] LABS: Glucose, Whole Blood 165 mg/dL (60-115)
[2023-07-08 19:34] VITALS: BP 119/63; PULSE 61; RESP 16; TEMP 35.7; O2SAT 97
--- NOTE | 2023-07-08 20:36 | P.PNNP_ITS ---
Subjective Subjective Date of Service: 07/08/23 Interval history: Seen and exmined, evnts noted Physical Exam 2 Vital Signs: Vital Signs: Last Vital Signs Temp 96.2 F L 07/08/23 19:34 Pulse 61 07/08/23 19:34 Resp 16 07/08/23 19:34 BP 119/63 07/08/23 19:34 Pulse Ox 97 07/08/23 19:34 O2 Del Method Room Air 07/08/23 19:34 BMI result Body Mass Index 33.9 Const: Other: General: no distres Resp: CTA bilateral CVS: S1,S2,RRR GI: +BS, NT, no distention Skin: No rash Neuro: motor grossly intact Psych: appropriate affect General: cooperative, comfortable, no acute distress and lethargic O rientation/consciousness: lethargic HEENT: Other: PERRLA, no facial asymmetry; she is pale Neck: Other: ecchymosis right side of neck, no JVD Resp: Other: clear to auscultation without rales Cardio: Jugular venous distension: no JVD Rate: tachycardic Rhythm: a bnormal rhythm Heart sounds: S1 normal heart sound present and S2 normal heart sound present GI: Other: abdomen obese Extrem: Other: Bilateral LE edema 1 plus pretib Psych: Other: pt is having a hard time answering questions, saying her name or responding; she is verbalizing but appears confused , encephalopathic, tremor in RUE Mental Status: other Objective Data Labs 07/07/23 05:43 07/07/23 05:43 Labs: Laboratory Results - last 24 hr 07/07/23 07/08/23 07/08/23 22:32 05:55 11:15 POC Glucose 131 H 136 H 130 H 07/08/23 18:11 POC Glucose 165 H Microbiology Microbiology Results: Microbiology 06/27/23 20:40 Blood - Venous Blood Culture - Final No growth after 5 days. 06/27/23 20:41 Blood - Venous Blood Culture - Final No growth after 5 days. 06/27/23 20:41 Urine clean catch - Urine titus top Urine Culture - Final Escherichia coli Enterococcus faecalis Procedures Date of Service Date of Service: 07/08/23 Assessment & Plan Assessment and plan (1) Acute kidney injury: Status: Acute (2) Cirrhosis: Status: Acute (3) Hyponatremia: Status: Acute Plan INGA on CKD with BL SCr 2.0 range ( sees Dr Ham) and overall doing very poorly with failure to thrive in the setting of multiorgan system failure with cirrhosis. ATN was nearing dialysis needs, but with time and medical management ATN appears to be resolving now--no indication for dailysis at this time Plan: - IVF if PO intake is poor. - avoid diuresis - track renal func Time Spent With Patient Time: Total time managing care of this patient today ____ minutes. Progress Note: Quality Stroke Does the patient have a stroke diagnosis?: No
[2023-07-08] MEDS: Lactulose 20 GM/30 ML SOLUTION 30 GM PO (21:13)
[2023-07-08] MEDS: Trolamine Salicylate 10 % Cream 85 GM TUBE 1 APPL TOPICAL (21:31)
[2023-07-08] MEDS: Melatonin 3 MG TABLET 6 MG PO (21:36)
[2023-07-08 22:48] LABS: Glucose, Whole Blood 163 mg/dL (60-115)
[2023-07-08] MEDS: Insulin Lispro 100 UNIT/ML 3 ML VIAL SUBCUT (23:11)
[2023-07-09 00:27] LABS: Glucose, Whole Blood 156 mg/dL (60-115)
[2023-07-09 04:00] VITALS: BP 123/60; PULSE 58; RESP 18; TEMP 36.3
[2023-07-09 04:59] LABS: Glucose, Whole Blood 149 mg/dL (60-115)
[2023-07-09 06:02] LABS: Ammonia 41 umol/L (13-55)
[2023-07-09 06:09] LABS: Anion Gap 12 (12-20); Blood Urea Nitrogen 49 mg/dL (9-16); Calcium 9.5 mg/dL (8.4-10.2); Carbon Dioxide 26 mmol/L (22-29); Chloride 100 mmol/L (96-108); Creatinine Clr Calc Pharmacy 38.2; Estimated Glomerular Filt Rate 37; Glucose Random 161 mg/dL (60-115); Potassium 3.7 mmol/L (3.3-5.1); Sodium 134 mmol/L (135-145)
[2023-07-09 06:28] VITALS: BP 106/51; PULSE 62
[2023-07-09] MEDS: Omeprazole 20 MG CAPSULE.DR PO (06:29)
[2023-07-09] MEDS: Midodrine HCl 5 MG TABLET PO (06:29)
[2023-07-09 06:33] VITALS: BMI 33.5
--- NOTE | 2023-07-09 06:42 | PC.NURSE ---
pt was more confuse than yesterday. she took off the Brian, pure wick, and picking her skins. pt upper body has scatter bruises with scabs and this morning she was picking her scabs, got skin tear. will monitor pt's behavior.
[2023-07-09 07:42] VITALS: BP 131/60; PULSE 65; RESP 16; TEMP 36.4; O2SAT 96
[2023-07-09] MEDS: Fluticasone/Umeclidinium/Vilanterol 200/62.5/25 BLST.W.DEV 1 PUFF INHALE (07:47)
[2023-07-09 07:48] VITALS: PULSE 65; RESP 20; O2SAT 96
[2023-07-09] MEDS: oxyCODONE HCl Immed Release 5 MG TABLET PO (07:50)
[2023-07-09] MEDS: Acetaminophen 325 MG TABLET PO (07:50)
[2023-07-09] MEDS: 0.9 % Sodium Chloride Flush 3 ML SYRINGE IVFLUSH ×2 (07:51→10:26)
[2023-07-09] MEDS: Amiodarone HCL 200 MG TABLET 400 MG PO (10:26)
[2023-07-09] MEDS: Gabapentin 100 MG CAPSULE PO (10:26)
[2023-07-09] MEDS: Sertraline HCL 100 MG TABLET PO (10:26)
[2023-07-09 11:23] LABS: Glucose, Whole Blood 171 mg/dL (60-115)
--- NOTE | 2023-07-09 12:09 | HO.WOUND ---
Wound Care Consult Reason for consult: Blistered sacral wound Patient was in bed at the time of consult. Patient has multiple pressure injuries. Patient has a DTI to her right heel. This area has blistered. The blister is intact and purplish. No drainage on the foam border removed. Surrounding skin dry and intact. Area measures 4cm x 3.5cm. Patients left heel has a stage II pressure injury. Foam border removed. Small serosanguineous drainage. Wound bed appearance was large pale pink. Wound edges are well defined and attached. Surrounding tissue is scarred and discolored. No odor. Wound measures 0.6cm x 0.8cm x 0.1cm. Wound cleansed with sea clense. Alginate ag cut to wound size and applied to wound bed. Covered with foam border. Coccyx/sacrum has a DTI. ABD pads removed from wound area. Small serosanguineous drainage on dressing. Wound bed appearance is deep purplish tissue with small yellow in areas. Wound looked to have been a blistered area and now purplish tissue peeling from the wound, tissue not yet distinguishable to stage. Wound bed is on the dryer side. DTI area measured 10cm x 14cm x 0.1cm. Zinc barrier cream applied to area. Covered with foam border. Right post thigh has a stage I. Foam border removed from area. No drainage noted. Small non-blanchable area measuring 1.3cm x 2.3cm. Surrounding tissue dry and intact. Foam border applied to area. Recommendation: For the right heel, keep padded with foam border to protect DTI area. Will need to be reassessed if blister opens. Until then may change dressing every other day to keep an eye on progression. For the left heel, cleanse with normal saline or sea clense wound cleanser. Cut alginate ag to wound size and apply to wound bed. Cover with foam border or gauze and shira. Change every other day. For the coccyx/sacrum area, apply triad cream if available, if not zinc barrier cream can be used and cover with a sacral foam border every other day or as needed if soiled. The dressing will have to be reassessed as the wound progresses. The area on the right post thigh can be protected with a foam border. Patient will need to be repositioned frequently, at least every 2 hours to help prevent any new areas from occurring and worsening of the current wounds. Patients heels will also need to be offloaded by using pillows or heel protector boots to make sure heels are floating off of bed. If not ordered already, will need to make sure nutrition is good. Increase protein intake if able to help with wound healing. Also patient would benefit from a air mattress if available. If there are any changes or questions, please feel free to reconsult wound care.
[2023-07-09 12:10] LABS: Glucose, Whole Blood 184 mg/dL (60-115)
[2023-07-09] MEDS: Insulin Lispro 100 UNIT/ML 3 ML VIAL SUBCUT (12:19)
--- NOTE | 2023-07-09 12:31 | MHC.CM.PN ---
Addendum entered by Renae Monae 07/09/23 14:13: Wound clinic consult documentation, DC Summary and Packet have been sent to the [facility]. Original Note: IMM 07/09/23 Patient is discharged to [facility] via [facility] today. 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 HCP requested and sent. Wound orders are pending Wound clinic documentation.
== END 2023-07-09 14:47 | disposition skilled nursing facility (03) | DRG 689 ==
LOC: HO.ED 23:46 → HO.EDOVER 06-28 00:20 → HO.S3 06-28 12:49
PROVIDERS: Hospitalist; Internal Medicine; Internal Medicine Nephrology; Student in an Organized Health Care Education/Training Program; Admitting Provider Student in an Organized Health Care Education/Training Program; Emergency Provider Emergency Medicine; Visit Provider Family Medicine
DX: N39.0 Urinary tract infection, site not specified (principal); G93.41 Metabolic encephalopathy; N17.0 Acute kidney failure with tubular necrosis; E87.1 Hypo-osmolality and hyponatremia; N17.9 Acute kidney failure, unspecified; I13.0 Hypertensive heart and chronic kidney disease with heart failure and stage 1 through stage 4 chronic kidney disease, or unspecified chronic kidney disease; I50.32 Chronic diastolic (congestive) heart failure; D63.1 Anemia in chronic kidney disease; E11.22 Type 2 diabetes mellitus with diabetic chronic kidney disease; I27.20 Pulmonary hypertension, unspecified; K74.69 Other cirrhosis of liver; Z66 Do not resuscitate; E86.1 Hypovolemia; F39 Unspecified mood [affective] disorder; E11.65 Type 2 diabetes mellitus with hyperglycemia; L89.326 Pressure-induced deep tissue damage of left buttock; L89.316 Pressure-induced deep tissue damage of right buttock; K76.82 Hepatic encephalopathy; N18.30 Chronic kidney disease, stage 3 unspecified; R62.7 Adult failure to thrive; Z68.33 Body mass index [BMI] 33.0-33.9, adult; T45.515A Adverse effect of anticoagulants, initial encounter; L89.622 Pressure ulcer of left heel, stage 2; L89.891 Pressure ulcer of other site, stage 1; L89.616 Pressure-induced deep tissue damage of right heel; L89.156 Pressure-induced deep tissue damage of sacral region; B96.20 Unspecified Escherichia coli [E. coli] as the cause of diseases classified elsewhere; B95.2 Enterococcus as the cause of diseases classified elsewhere; D64.9 Anemia, unspecified; R19.5 Other fecal abnormalities; I48.0 Paroxysmal atrial fibrillation; K75.81 Nonalcoholic steatohepatitis (NASH); Z79.4 Long term (current) use of insulin; Z79.01 Long term (current) use of anticoagulants; Z79.899 Other long term (current) drug therapy
CPT/HCPCS: 36415; 74176; 80048; 80053; 80076; 81001; 81003; 82140; 82272; 82570; 82947; 83010; 83540; 83605; 83615; 83930; 84156; 84300; 84484; 85014; 85018; 85025; 85027; 85045; 85610; 85999; 86850; 86880; 86900; 86901; 86923; 87040; 87086; 87088; 87186; 92526; 92610; 93005; 94640; 97110; 97162; 99285; J0696; J2270; J2405; J2550; P9016; P9047

== ENCOUNTER → 2023-06-27 21:02 | Outpatient (BNV) | payer MEDICARE, OTHER, MEDICAID, SELFPAY | PROVIDERS: Emergency Provider Emergency Medicine; Visit Provider Student in an Organized Health Care Education/Training Program | DX: N17.9 Acute kidney failure, unspecified (principal); N18.30 Chronic kidney disease, stage 3 unspecified; K74.60 Unspecified cirrhosis of liver; K76.82 Hepatic encephalopathy; G93.41 Metabolic encephalopathy; N39.0 Urinary tract infection, site not specified; D64.9 Anemia, unspecified; E87.1 Hypo-osmolality and hyponatremia; T14.8XXA Other injury of unspecified body region, initial encounter; L89.602 Pressure ulcer of unspecified heel, stage 2 | CPT/HCPCS: 99223; 99232; 99233; 99239 ==

== ENCOUNTER → 2023-06-27 22:46 | Outpatient (BNV) | payer MEDICARE, OTHER, SELFPAY | PROVIDERS: Admitting Provider Student in an Organized Health Care Education/Training Program; Emergency Provider Emergency Medicine; Visit Provider Internal Medicine Medical Oncology | DX: G93.41 Metabolic encephalopathy (principal); N17.9 Acute kidney failure, unspecified; N18.6 End stage renal disease; D64.9 Anemia, unspecified; Z99.2 Dependence on renal dialysis | CPT/HCPCS: 99222 ==